=== PATIENT | male | born 1960 | race African-American/Black ===

== ENCOUNTER 2016-10-05 10:27 | Emergency (ER) | payer OTHER ==
[2016-10-05 10:47] VITALS: TEMP 97.4
[2016-10-05] MEDS ORDERED: SODIUM CHLORIDE 0.9% 1,000 ML IV STA (11:04)
[2016-10-05 11:47] LABS: Anisocytosis Slight; Basophils % (A) 1 %; CH 30.8; CHCM 32.3; Eosinophils # (A) 0.1 k/uL (0-0.7); Eosinophils % (A) 1 %; HCT 48.6 % (39.0-53.0); HDW 2.28; HGB 15.2 gm/dL (13.0-17.5); Luc # (Auto) 0.16; Luc % (Auto) 4; Lymphocytes # (A) 1.7 k/uL (1.0-4.8); Lymphocytes % (A) 40 %; MCH 29.9 pg (25.0-35.0); MCHC 31.2 g/dL (31.0-37.0); MCV 95.9 fL (80.0-100.0); Mean Platelet Volume 8.4; Monocytes # (A) 0.4 k/uL (0-1.0); Monocytes % (A) 8 %; Neutrophils % (A) 47 %; RBC 5.06 m/uL (4.30-5.90); WBC 4.3 k/uL (3.8-10.6); WBC (Perox) 4.15
--- NOTE | 2016-10-05 11:48 | XR ---
EXAMINATION TYPE: XR chest 2V DATE OF EXAM: 10/05/2016 COMPARISON: 11/12/2015 HISTORY: Shortness of breath TECHNIQUE: Frontal and lateral views of the chest are obtained. FINDINGS: Scattered senescent parenchymal changes noted. Hyperinflation compatible with COPD. No evidence for infiltrate. No evidence for atelectasis. Heart size is stable. Mediastinal structures are stable and grossly unremarkable. No evidence for hilar prominence. Degenerative changes dorsal spine. IMPRESSION: 1. No evidence for acute pulmonary disease.
[2016-10-05 11:56] LABS: ALT 27 U/L (21-72); AST 18 U/L (17-59); Alkaline Phosphatase 46 U/L (38-126); Anion Gap 5 mmol/L; Blood Urea Nitrogen 20 mg/dL (9-20); Calcium 9.6 mg/dL (8.4-10.2); Carbon Dioxide 29 mmol/L (22-30); Chloride 105 mmol/L (98-107); Glucose 76 mg/dL (74-99); Magnesium 1.6 mg/dL (1.6-2.3); Non-African American GFR(MDRD) >60 (>60 ml/min/1.73 sqM); Potassium 4.4 mmol/L (3.5-5.1); Sodium 139 mmol/L (137-145); Total Bilirubin 0.4 mg/dL (0.2-1.3); Total Protein 6.4 g/dL (6.3-8.2)
--- NOTE | 2016-10-05 12:05 | ED ---
Recheck HPI - General Chief Complaint: Recheck/Abnormal Lab/Rx Stated Complaint: High BP Time Seen by Provider: 10/05/16 10:52 Source: patient, RN notes reviewed, old records reviewed Mode of arrival: ambulatory Limitations: no limitations - History of Present Illness Initial Comments: This is a 56-year-old male presenting to the emergency Department chief complaint of concern of high blood pressure. He reports that he had his blood drawn at [facility] and the nurse there told him that he had to be evaluated because his blood pressure was low. Upon arriving to emergency departments and his blood pressure is actually well at 107/56. Heart rate of 48. Patient reports that he is not take any medication for blood pressure to manage his heart rate. He reports that he has no chest pain or shortness of breath. Denies any lightheaded or dizziness. Patient states that he did not eat breakfast this morning. Apparently patient does live in a custodial. - Related Data Home Medications Medication Instructions Recorded Confirmed Aspirin EC [Ecotrin Low Dose] 81 mg PO DAILY 10/05/16 10/05/16 Calcium Carb-Vit D 500Mg-200Un 1 tab PO TID 10/05/16 10/05/16 [Oscal 500+D] Desmopressin Acetate [Desmopressin 0.4 mg PO HS 10/05/16 10/05/16 Acetate] Divalproex Sodium [Depakote] 1,000 mg PO TID 10/05/16 10/05/16 Iloperidone [Fanapt] 8 mg PO BID 10/05/16 10/05/16 Lacosamide [Vimpat] 50 mg PO BID 10/05/16 10/05/16 PARoxetine [Paxil] 20 mg PO HS 10/05/16 10/05/16 Phenytoin Sodium Extended 100 mg PO BID 10/05/16 10/05/16 [Dilantin] Propranolol [Inderal] 20 mg PO BID 10/05/16 10/05/16 clonazePAM [KlonoPIN] 0.5 mg PO HS 10/05/16 10/05/16 levETIRAcetam [Keppra] 1,000 mg PO Q12HR 10/05/16 10/05/16 levETIRAcetam [Keppra] 250 mg PO Q12HR 10/05/16 10/05/16 Allergies Allergy/AdvReac Type Severity Reaction Status Date / Time No Known Allergies Allergy Verified 10/05/16 11:52 Review of Systems ROS Statement: Those systems with pertinent positive or pertinent negative responses have been documented in the HPI. ROS Other: All systems not noted in ROS Statement are negative. Past Medical History Past Medical History: Seizure Disorder Additional Past Medical History / Comment(s): epilepsy History of Any Multi-Drug Resistant Organisms: None Reported Past Surgical History: No Surgical Hx Reported Past Psychological History: Depression Smoking Status: Former smoker Past Alcohol Use History: None Reported, Abuse, Daily Past Drug Use History: None Reported General Exam - General Exam Comments Initial Comments: This is a 56-year-old male. Patient does not appear to be in any acute distress. Limitations: no limitations General appearance: alert, in no apparent distress Head exam: Present: atraumatic, normocephalic, normal inspection Eye exam: Present: normal appearance, PERRL, EOMI. Absent: scleral icterus, conjunctival injection, periorbital swelling ENT exam: Present: normal exam, mucous membranes moist Neck exam: Present: normal inspection. Absent: tenderness, meningismus, lymphadenopathy Respiratory exam: Present: normal lung sounds bilaterally. Absent: respiratory distress, wheezes, rales, rhonchi, stridor Cardiovascular Exam: Present: regular rate, bradycardia, normal heart sounds. Absent: normal rhythm (Heart rate of 48 bpm.), systolic murmur, diastolic murmur , rubs, gallop, clicks GI/Abdominal exam: Present: soft Extremities exam: Present: normal inspection, full ROM, normal capillary refill. Absent: tenderness, pedal edema, joint swelling, calf tenderness Back exam: Present: normal inspection Neurological exam: Present: alert, oriented X3, CN II-XII intact Psychiatric exam: Present: normal affect, normal mood Skin exam: Present: warm, dry, intact, normal color. Absent: rash Course Vital Signs 10/05/16 10/05/16 10/05/16 10:42 11:06 12:57 Temperature 97.4 F L Pulse Rate 48 L 47 L 50 L Pulse Rate [ Sitting] Pulse Rate [ Standing] Pulse Rate [ Supine] Respiratory 18 18 16 Rate Blood Pressure 107/62 154/114 127/68 Blood Pressure [Sitting] Blood Pressure [Standing] Blood Pressure [Supine] O2 Sat by Pulse 97 98 98 Oximetry 10/05/16 10/05/16 14:10 14:13 Temperature Pulse Rate 58 L Pulse Rate [ 67 Sitting] Pulse Rate [ 53 L Standing] Pulse Rate [ 85 Supine] Respiratory 18 Rate Blood Pressure 101/65 Blood Pressure 110/62 [Sitting] Blood Pressure 101/65 [Standing] Blood Pressure 127/70 [Supine] O2 Sat by Pulse 95 Oximetry - Reevaluation(s) Reevaluation #1: 10/05/16 13:38 Patient was reevaluated and reports that he is feeling fine. He reports that he wants to go home. Discussed all of his lab work is appear to be normal. He discontinued have a low heart rate in 45-48 bpm. He does not have any headache , or lightheadedness. Medical Decision Making - Medical Decision Making 56-year-old male chief complaint of concern for high blood pressure. He reports that he was getting his lab work done and they told him that he had an abnormal blood pressure needed to come to the emergency department to be evaluated. Upon arriving to the emergency department as the patient heart rate is significantly low in the mid 40s. Patient states that he is not symptomatic , denies any headache or dizziness. He states that he has no chest pain or shortness of breath. Mom emergency Department patient received EKGs. He does have history of seizure disorder he has been more shaky but has not been having any acute seizures. He is on multiple medications to manage his. He sees Dr. Rodriges in regards to seizure management. Patient taken over within normal limits. Chest x-ray also was normal. Patient does have symptomatic bradycardia when orthostatics were taken. Heart rate while supine was 85, whatever skating of 63. Patient was offered admission and strongly encouraged to stay. Patient continues to state that he wants to go home to see his mother. Patient understands the risks and benefits of leaving. Discussed that he could have serious consequences. Patient is adamant that he wants to leave. Patient will be advised to discontinue his propanolol as this can cause his heart rate to slow. Patient agrees to treatment plan will comply. Return parameters were discussed. - Lab Data Result diagrams: 10/05/16 11:25 10/05/16 11:25 Lab Results 10/05/16 10/05/16 10/05/16 Range/Units 11:25 11:25 11:25 WBC 4.3 (3.8-10.6) k/uL RBC 5.06 (4.30-5.90) m/uL Hgb 15.2 (13.0-17.5) gm/dL Hct 48.6 (39.0-53.0) % MCV 95.9 (80.0-100.0) fL MCH 29.9 (25.0-35.0) pg MCHC 31.2 (31.0-37.0) g/dL RDW 16.0 H (11.5-15.5) % Plt Count 147 L (150-450) k/uL Neutrophils % 47 % Lymphocytes % 40 % Monocytes % 8 % Eosinophils % 1 % Basophils % 1 % Neutrophils # 2.0 (1.3-7.7) k/uL Lymphocytes # 1.7 (1.0-4.8) k/uL Monocytes # 0.4 (0-1.0) k/uL Eosinophils # 0.1 (0-0.7) k/uL Basophils # 0.0 (0-0.2) k/uL Anisocytosis Slight PT (9.0-12.0) sec INR (<1.2) APTT (22.0-30.0) sec Sodium 139 (137-145) mmol/L Potassium 4.4 (3.5-5.1) mmol/L Chloride 105 (98-107) mmol/L Carbon Dioxide 29 (22-30) mmol/L Anion Gap 5 mmol/L BUN 20 (9-20) mg/dL Creatinine 1.21 (0.66-1.25) mg/dL Est GFR (MDRD) Af Amer >60 (>60 ml/min/1.73 sqM) Est GFR (MDRD) Non-Af >60 (>60 ml/min/1.73 sqM) Glucose 76 (74-99) mg/dL Calcium 9.6 (8.4-10.2) mg/dL Magnesium 1.6 (1.6-2.3) mg/dL Total Bilirubin 0.4 (0.2-1.3) mg/dL AST 18 (17-59) U/L ALT 27 (21-72) U/L Alkaline Phosphatase 46 (38-126) U/L Total Creatine Kinase 98 (55-170) U/L CK-MB (CK-2) 2.8 H* (0.0-2.4) ng/mL CK-MB (CK-2) Rel Index 2.9 Troponin I <0.012 (0.000-0.034) ng/mL NT-Pro-B Natriuret Pep pg/mL Total Protein 6.4 (6.3-8.2) g/dL Albumin 3.6 (3.5-5.0) g/dL 10/05/16 10/05/16 Range/Units 11:25 11:25 WBC (3.8-10.6) k/uL RBC (4.30-5.90) m/uL Hgb (13.0-17.5) gm/dL Hct (39.0-53.0) % MCV (80.0-100.0) fL MCH (25.0-35.0) pg MCHC (31.0-37.0) g/dL RDW (11.5-15.5) % Plt Count (150-450) k/uL Neutrophils % % Lymphocytes % % Monocytes % % Eosinophils % % Basophils % % Neutrophils # (1.3-7.7) k/uL Lymphocytes # (1.0-4.8) k/uL Monocytes # (0-1.0) k/uL Eosinophils # (0-0.7) k/uL Basophils # (0-0.2) k/uL Anisocytosis PT 10.8 (9.0-12.0) sec INR 1.1 (<1.2) APTT 25.3 (22.0-30.0) sec Sodium (137-145) mmol/L Potassium (3.5-5.1) mmol/L Chloride (98-107) mmol/L Carbon Dioxide (22-30) mmol/L Anion Gap mmol/L BUN (9-20) mg/dL Creatinine (0.66-1.25) mg/dL Est GFR (MDRD) Af Amer (>60 ml/min/1.73 sqM) Est GFR (MDRD) Non-Af (>60 ml/min/1.73 sqM) Glucose (74-99) mg/dL Calcium (8.4-10.2) mg/dL Magnesium (1.6-2.3) mg/dL Total Bilirubin (0.2-1.3) mg/dL AST (17-59) U/L ALT (21-72) U/L Alkaline Phosphatase (38-126) U/L Total Creatine Kinase (55-170) U/L CK-MB (CK-2) (0.0-2.4) ng/mL CK-MB (CK-2) Rel Index Troponin I (0.000-0.034) ng/mL NT-Pro-B Natriuret Pep 130 pg/mL Total Protein (6.3-8.2) g/dL Albumin (3.5-5.0) g/dL 10/05/16 14:35 EKG was difficult to interpret due to patient's shakiness. Patient does have ventricular rate of 45 bpm. PA interval 150 ms. QRS duration 70 ms. QT QTc 440/384 ms. Does not appear the patient has A. fib his P waves are identified. This EKG was performed 1118. Second EKG is performed 1128. Is also difficult to visualize due to patient's shakiness. There is sinus bradycardia ventricular rate of 44 bpm. PA interval 140 ms. QRS duration 74. QT QTc is 466/99 ms. No evidence of ST elevation. Disposition Clinical Impression: Bradycardia Disposition: Left Against Medical Advice Condition: Good Instructions: Bradycardia (ED) Additional Instructions: Patient needs to stop taking propranolol. Return to the emergency department if any alarming signs or symptoms occur. Referrals: Donovan Lara MD [Primary Care Provider] - 1-2 days Time of Disposition: 14:33
[2016-10-05 12:06] LABS: Creatine Kinase 98 U/L (55-170)
[2016-10-05 12:19] LABS: Troponin I <0.012 ng/mL (0.000-0.034)
[2016-10-05 12:23] LABS: Creatine Kinase MB 2.8 ng/mL (0.0-2.4)
[2016-10-05 12:28] LABS: INR 1.1 (<1.2); Partial Thromboplastin Time 25.3 sec (22.0-30.0); Prothrombin Time 10.8 sec (9.0-12.0)
[2016-10-05 14:14] VITALS: RESP 18
[2016-10-05 14:51] VITALS: BP 151/78; PULSE 43
== END 2016-10-05 14:55 | disposition left against medical advice (07) ==
LOC: MERGE 10:27 → EC 10:27 → EEVIPCON 10:27 → EC 14:55
DX: R00.1 Bradycardia, unspecified (principal); R03.0 Elevated blood-pressure reading, without diagnosis of hypertension; F32.9 Major depressive disorder, single episode, unspecified; G40.909 Epilepsy, unspecified, not intractable, without status epilepticus; Z87.891 Personal history of nicotine dependence; Z79.82 Long term (current) use of aspirin; Z79.899 Other long term (current) drug therapy
CPT/HCPCS: 36415; 71020; 80053; 82550; 82553; 83735; 83880; 84484; 85025; 85610; 85730; 93005; 96360; 96361; 99284

== ENCOUNTER → 2018-05-02 | Outpatient (CLI) | payer OTHER ==
--- NOTE | 2018-05-02 13:46 | CT ---
EXAMINATION TYPE: CT brain wo con DATE OF EXAM: 05/02/2018 COMPARISON: 11/09/2015 HISTORY: Epilepsy. CT DLP: 1080.[address] of the brain was performed. The ventricles, basal cisterns and sulci overlying the cerebral convexities demonstrate mild to moder ate enlargement. There is no evidence for intracranial hemorrhage or sulcal effacement. There is decreased attenuation about the periventricular white matter and deep white matter of both c erebral hemispheres, compatible with chronic small vessel ischemia. Differential diagnosis does inclu de demyelination. No mass effects are seen.No midline shift. Osseous calvarium is intact. If symptoms persist consider MRI. IMPRESSION: 1. Age related atrophic and chronic small vessel ischemic change without acute intracranial process s een at this time.
== END | disposition home or self-care (01) ==
LOC: RADCTMAIN 13:01
PROVIDERS: ATTEND Psychiatry & Neurology Neurology
DX: G31.1 Senile degeneration of brain, not elsewhere classified (principal); I67.82 Cerebral ischemia; G40.209 Localization-related (focal) (partial) symptomatic epilepsy and epileptic syndromes with complex partial seizures, not intractable, without status epilepticus
CPT/HCPCS: 70450

== ENCOUNTER → 2018-12-04 | Outpatient (CLI) | payer OTHER ==
[2018-12-04 11:53] LABS: Anisocytosis Slight; Basophils # (A) 0.1 k/uL (0-0.2); Basophils % (A) 2 %; Eosinophils # (A) 0.1 k/uL (0-0.7); Eosinophils % (A) 1 %; HCT 47.6 % (39.0-53.0); HGB 14.6 gm/dL (13.0-17.5); Lymphocytes # (A) 1.5 k/uL (1.0-4.8); Lymphocytes % (A) 37 %; MCH 29.5 pg (25.0-35.0); MCHC 30.7 g/dL (31.0-37.0); MCV 96.1 fL (80.0-100.0); Mean Platelet Volume 8.2; Monocytes # (A) 0.3 k/uL (0-1.0); Monocytes % (A) 8 %; Neutrophils % (A) 50 %; Platelet Count 144 k/uL (150-450); RBC 4.95 m/uL (4.30-5.90); RDW 16.1 % (11.5-15.5)
== END ==
LOC: LABWHC1 09:59
PROVIDERS: ATTEND Psychiatry & Neurology Neurology
DX: G40.209 Localization-related (focal) (partial) symptomatic epilepsy and epileptic syndromes with complex partial seizures, not intractable, without status epilepticus (principal)
CPT/HCPCS: 36415; 80164; 80177; 80185; 84450; 84460; 85025

== ENCOUNTER → 2019-05-21 | Outpatient (CLI) | payer OTHER | END | disposition home or self-care (01) | LOC: LABWHC1 10:23 | PROVIDERS: ATTEND Psychiatry & Neurology Neurology | DX: Z53.9 Procedure and treatment not carried out, unspecified reason (principal) ==

== ENCOUNTER → 2019-08-28 | Outpatient (CLI) | payer OTHER ==
[2019-08-28 12:40] LABS: Basophils % (A) 1 %; Eosinophils # (A) 0.1 k/uL (0-0.7); Eosinophils % (A) 2 %; HCT 51.5 % (39.0-53.0); HGB 15.8 gm/dL (13.0-17.5); Lymphocytes # (A) 1.7 k/uL (1.0-4.8); Lymphocytes % (A) 43 %; MCH 29.8 pg (25.0-35.0); MCHC 30.8 g/dL (31.0-37.0); MCV 96.7 fL (80.0-100.0); Monocytes # (A) 0.3 k/uL (0-1.0); Monocytes % (A) 9 %; Neutrophils # (A) 1.7 k/uL (1.3-7.7); Neutrophils % (A) 42 %; Platelet Count 117 k/uL (150-450); RBC 5.32 m/uL (4.30-5.90); RDW 15.5 % (11.5-15.5)
[2019-08-28 21:43] LABS: Valproic Acid (Depakene) 65.3 ug/mL (50.0-100.0)
[2019-08-28 22:26] LABS: Phenytoin (Dilantin) 11.9 ug/mL (10.0-20.0)
== END | disposition home or self-care (01) ==
LOC: LABWHC1 10:54
PROVIDERS: ATTEND Psychiatry & Neurology Neurology
DX: G40.209 Localization-related (focal) (partial) symptomatic epilepsy and epileptic syndromes with complex partial seizures, not intractable, without status epilepticus (principal)
CPT/HCPCS: 36415; 80164; 80177; 80185; 84450; 84460; 85025

== ENCOUNTER → 2019-11-04 | Outpatient (CLI) | payer OTHER ==
[2019-11-04 11:21] LABS: Anisocytosis Slight; Basophils % (A) 1 %; Eosinophils # (A) 0.1 k/uL (0-0.7); Eosinophils % (A) 2 %; HCT 47.3 % (39.0-53.0); HGB 14.5 gm/dL (13.0-17.5); Lymphocytes # (A) 1.4 k/uL (1.0-4.8); Lymphocytes % (A) 33 %; MCH 29.3 pg (25.0-35.0); MCHC 30.6 g/dL (31.0-37.0); MCV 95.9 fL (80.0-100.0); Mean Platelet Volume 8.9; Monocytes # (A) 0.4 k/uL (0-1.0); Monocytes % (A) 9 %; Neutrophils # (A) 2.3 k/uL (1.3-7.7); Neutrophils % (A) 54 %; Platelet Count 134 k/uL (150-450); RBC 4.93 m/uL (4.30-5.90); RDW 16.3 % (11.5-15.5); WBC 4.4 k/uL (3.8-10.6)
[2019-11-04 17:52] LABS: Phenytoin (Dilantin) 9.3 ug/mL (10.0-20.0)
[2019-11-04 18:03] LABS: Valproic Acid (Depakene) 45.3 ug/mL (50.0-100.0)
[2019-11-05 07:52] LABS: Levetiracetam (Keppra) 27.7 ug/mL (3.0-60.0)
== END | disposition home or self-care (01) ==
LOC: LABWHC1 10:14
PROVIDERS: ATTEND Psychiatry & Neurology Neurology
DX: G40.209 Localization-related (focal) (partial) symptomatic epilepsy and epileptic syndromes with complex partial seizures, not intractable, without status epilepticus (principal)
CPT/HCPCS: 36415; 80164; 80177; 80185; 80235; 84450; 84460; 85025

== ENCOUNTER → 2020-05-27 | Outpatient (CLI) | payer OTHER ==
[2020-05-27 19:19] LABS: Basophils # (A) 0.02 X 10*3/uL (0.00-0.10); Basophils % (A) 0.5 %; Eosinophils # (A) 0.04 X 10*3/uL (0.04-0.35); HCT 42.7 % (39.6-50.0); HGB 14.2 g/dL (13.0-17.0); Lymphocytes # (A) 1.77 X 10*3/uL (0.90-5.00); Lymphocytes % (A) 43.6 %; MCH 30.1 pg (27.0-32.0); MCHC 33.3 g/dL (32.0-37.0); MCV 90.5 fL (80.0-97.0); Mean Platelet Volume 11.7 fL (9.5-12.2); Monocytes # (A) 0.41 X 10*3/uL (0.20-1.00); Monocytes % (A) 10.1 %; Neutrophils # (A) 1.81 X 10*3/uL (1.80-7.70); Neutrophils % (A) 44.6 %; Platelet Count 143 X 10*3/uL (140-440); RBC 4.72 X 10*6/uL (4.40-5.60); WBC 4.06 X 10*3/uL (4.50-10.00)
[2020-05-28 01:15] LABS: Valproic Acid (Depakene) 26.4 ug/mL (50.0-100.0)
[2020-05-28 01:23] LABS: Phenytoin (Dilantin) 14.3 ug/mL (10.0-20.0)
[2020-05-28 12:38] LABS: Levetiracetam (Keppra) 32.9 ug/mL (3.0-60.0)
== END | disposition home or self-care (01) ==
LOC: LABWHC1 11:33
PROVIDERS: ATTEND Psychiatry & Neurology Neurology
DX: G40.209 Localization-related (focal) (partial) symptomatic epilepsy and epileptic syndromes with complex partial seizures, not intractable, without status epilepticus (principal)
CPT/HCPCS: 36415; 80164; 80177; 80185; 80235; 84450; 84460; 85025

== ENCOUNTER 2020-10-20 14:44 | Emergency (ER) | payer OTHER ==
[2020-10-20 15:04] VITALS: BP 92/61; PULSE 69; RESP 18; TEMP 97.5
[2020-10-20] MEDS ORDERED: ASPIRIN 81 MG PO STA (15:49)
[2020-10-20] MEDS ORDERED: SODIUM CHLORIDE 0.9% 1,000 ML IV STA (15:49)
[2020-10-20] MEDS ORDERED: KETOROLAC 15 MG/ML 1 ML VIAL IVP STA (16:05)
[2020-10-20 16:21] LABS: Basophils % (A) 0 %; Eosinophils # (A) 0.1 k/uL (0-0.7); Eosinophils % (A) 1 %; HCT 49.4 % (39.0-53.0); HGB 16.1 gm/dL (13.0-17.5); Lymphocytes # (A) 1.5 k/uL (1.0-4.8); Lymphocytes % (A) 32 %; MCH 31.8 pg (25.0-35.0); MCHC 32.5 g/dL (31.0-37.0); MCV 97.9 fL (80.0-100.0); Mean Platelet Volume 9.5; Monocytes # (A) 0.5 k/uL (0-1.0); Monocytes % (A) 11 %; Neutrophils # (A) 2.6 k/uL (1.3-7.7); Neutrophils % (A) 54 %; Platelet Count 129 k/uL (150-450); RBC 5.04 m/uL (4.30-5.90); WBC 4.7 k/uL (3.8-10.6)
--- NOTE | 2020-10-20 16:30 | XR ---
EXAMINATION TYPE: XR ribs LT w pa chest xray DATE OF EXAM: 10/20/2020 CLINICAL HISTORY: Chest and left-sided rib pain. TECHNIQUE: Single frontal view of the chest is obtained. A frontal and oblique images of the left-poncho ed ribs. COMPARISON: Prior chest x-ray October 05, 2016 FINDINGS: There is mild chronic parenchymal changes with new tiny left pleural effusion. No pneumoth orax seen bilaterally. The cardiac silhouette size is stable and upper limits of normal. The osseou s structures are intact. Dedicated images of the left-sided ribs confirm small to tiny left pleural effusion. No acute displac ed left-sided rib fracture is seen. No suspicious expansile or destructive rib lesion noted. IMPRESSION: 1. New small to tiny left pleural effusion. 2. No acute displaced left-sided rib fracture.
[2020-10-20 16:31] LABS: African American GFR (CKD) 90 (>60 ml/min/1.73 sqM); Alcohol <10 mg/dL; Anion Gap 5 mmol/L; Blood Urea Nitrogen 20 mg/dL (9-20); Calcium 8.8 mg/dL (8.4-10.2); Carbon Dioxide 27 mmol/L (22-30); Chloride 109 mmol/L (98-107); Glucose 69 mg/dL (74-99); Magnesium 1.9 mg/dL (1.6-2.3); Non-African American GFR(CKD) 78 (>60 ml/min/1.73 sqM); Potassium 4.7 mmol/L (3.5-5.1); Sodium 141 mmol/L (137-145)
--- NOTE | 2020-10-20 17:39 | ED ---
General Adult HPI - General Chief complaint: Chest Pain Stated complaint: Chest Pain/Fall Time Seen by Provider: 10/20/20 15:46 Source: patient, RN notes reviewed, old records reviewed Mode of arrival: wheelchair Limitations: no limitations - History of Present Illness Initial comments: I evaluated the patient is placed in a room.Patient is a 60-year-old male with past medical history remarkable for alcohol use, seizure disorder who presents emergency Department following a mechanical fall. He states that this occurred 5 days ago. He fell from 1 step and landed on a chair he was carrying. He is having some left-sided inferior lateral rib pain that he describes as achy and does not radiate.. He was sent by his home for evaluation. Denies any shortness breath, abdominal pain, nausea, vomiting, headaches, weakness, numbness. States he has not drank alcohol. His no other acute complaints at this time. Patient is concerned over possible musculo skeletal injury to left ribs. - Related Data Home Medications Medication Instructions Recorded Confirmed Desmopressin Acetate 0.4 mg PO HS@199907/13/15 10/20/20 Aspirin EC [Ecotrin Low Dose] 81 mg PO DAILY@0700 10/05/16 10/20/20 Divalproex Sodium [Depakote] 500 mg PO HS@199910/05/16 10/20/20 Lacosamide [Vimpat] 50 mg PO DAILY@69910/05/16 10/20/20 clonazePAM [KlonoPIN] 0.5 mg PO HS@199910/05/16 10/20/20 levETIRAcetam [Keppra] 1,000 mg PO BID@0700,199910/05/16 10/20/20 Divalproex [Depakote] 1,000 mg PO BID@0700,1600 10/20/20 10/20/20 Divalproex [Depakote] 250 mg PO HS@199910/20/20 10/20/20 Escitalopram [Lexapro] 10 mg PO HS@199910/20/20 10/20/20 Iloperidone [Fanapt] 4 mg PO BID@0700,199910/20/20 10/20/20 Phenytoin Chew [Dilantin Chew] 50 mg PO DAILY@0700 10/20/20 10/20/20 Phenytoin Sodium Extended 100 mg PO BID@0700,1600 10/20/20 10/20/20 [Dilantin] Previous Rx's Medication Instructions Recorded Lidocaine 5% Patch [Lidoderm 5% 1 patch TOPICAL DAILY PRN 7 Days 10/20/20 Patch] #7 patch Allergies Allergy/AdvReac Type Severity Reaction Status Date / Time No Known Allergies Allergy Verified 10/20/20 16:34 Review of Systems ROS Statement: Those systems with pertinent positive or pertinent negative responses have been documented in the HPI. Review of Systems: CONST: Denies fever EYES: Denies blurry vision ENT: Denies nasal congestion C/V: Endorses left-sided rib pain RESP: Denies shortness of breath GI: Denies abdominal pain : Denies dysuria SKIN: Denies rash. MSK: Denies joint pain. NEURO: Denies headache ROS Other: All systems not noted in ROS Statement are negative. Past Medical History Past Medical History: Seizure Disorder Additional Past Medical History / Comment(s): epilepsy History of Any Multi-Drug Resistant Organisms: None Reported Past Surgical History: No Surgical Hx Reported Additional Past Surgical History / Comment(s): Only surgery known was plastic surgery due to ashley as a child. Past Anesthesia/Blood Transfusion Reactions: Unable to Obtain Past Psychological History: Depression, No Psychological Hx Reported Smoking Status: Current every day smoker Past Alcohol Use History: Abuse, Daily Past Drug Use History: None Reported - Past Family History Father History Unknown: Yes Family Medical History: Unable to Obtain Mother History Unknown: Yes Family Medical History: Unable to Obtain General Exam - General Exam Comments Initial Comments: General: Appears in mild distress secondary to left-sided rib pain. HEAD: Normal with no signs of head trauma. EYES: PERRLA, EOMI, conjunctiva normal, no discharge. Pupils are 3 mm and eq ual bilaterally. ENT: Hearing grossly intact, normal oropharynx. RESPIRATORY: Clear breath sounds bilaterally. No wheezes, rales, or rhonchi. C/V: Regular rate and rhythm. S1 and S2 auscultated, no edema, peripheral pulses 2+ and intact throughout patient has inferior left lateral rib pain along the intercostal space of the inferior most ribs, 11 and 12. No obvious deformity palpated. ABD: Abd is soft, nontender, nondistended EXT: Normal range of motion, no obvious deformity SKIN: No rashes or lesions observed on exposed skin. NEURO: Alert and oriented 4. Patient's ambulate without difficulty. No signs of alcohol withdrawal. Limitations: no limitations Course Vital Signs 10/20/20 15:00 Temperature 97.5 F L Pulse Rate 69 Respiratory 18 Rate Blood Pressure 92/61 O2 Sat by Pulse 99 Oximetry Medical Decision Making - Medical Decision Making Based on patient's mentation physical exam, I do believe he is likely expressing muscle skeletal chest wall pain along the ribs. However we will obtain basic laboratory studies as well as a screening EKG. We'll obtain an x-ray of the left ribs and chest. Patient was in agreement this plan. He'll be given an aspirin and Toradol for pain management as well as a 1 L fluid bolus. Patient's EKG shows no signs of acute ischemia. Chest x-ray shows no acute cardiopulmonary process. Laboratory studies are remarkable for a negative alcohol level. Patient is mildly hypoglycemic but is acting normally, we will administer juice and repeat. I informed him of his negative imaging and I would like to discharge him home following improvement of his blood glucose. He was in agreement this plan. Patient's repeat blood sugar is within normal limits. I do believe it is safe for him to be discharged home at this time. Patient states he has Motrin or Tylenol at home for pain management. I will provide the patient with a prescription for lidocaine patch. I instructed the patient to follow up with their PCP in the next 3 days. . I explained that the patient should return to the emergency department if they experience any worsening symptoms. Strict return precautions were discussed with the patient. The patient expressed understanding of these instructions. I answered all questions that the patient had. The patient was discharged home in good condition with their prescriptions and follow up information. - Lab Data Result diagrams: 10/20/20 16:00 10/20/20 16:00 Lab Results 10/20/20 10/20/20 10/20/20 Range/Units 16:00 16:00 18:06 WBC 4.7 (3.8-10.6) k/uL RBC 5.04 (4.30-5.90) m/uL Hgb 16.1 (13.0-17.5) gm/dL Hct 49.4 (39.0-53.0) % MCV 97.9 (80.0-100.0) fL MCH 31.8 (25.0-35.0) pg MCHC 32.5 (31.0-37.0) g/dL RDW 16.0 H (11.5-15.5) % Plt Count 129 L (150-450) k/uL MPV 9.5 Neutrophils % 54 % Lymphocytes % 32 % Monocytes % 11 % Eosinophils % 1 % Basophils % 0 % Neutrophils # 2.6 (1.3-7.7) k/uL Lymphocytes # 1.5 (1.0-4.8) k/uL Monocytes # 0.5 (0-1.0) k/uL Eosinophils # 0.1 (0-0.7) k/uL Basophils # 0.0 (0-0.2) k/uL Sodium 141 (137-145) mmol/L Potassium 4.7 (3.5-5.1) mmol/L Chloride 109 H (98-107) mmol/L Carbon Dioxide 27 (22-30) mmol/L Anion Gap 5 mmol/L BUN 20 (9-20) mg/dL Creatinine 1.04 (0.66-1.25) mg/dL Est GFR (CKD-EPI)AfAm 90 (>60 ml/min/1.73 sqM) Est GFR (CKD-EPI)NonAf 78 (>60 ml/min/1.73 sqM) Glucose 69 L (74-99) mg/dL POC Glucose (mg/dL) 109 H (75-99) mg/dL POC Glu [employer] Worker ID Mikie Mae A Calcium 8.8 (8.4-10.2) mg/dL Magnesium 1.9 (1.6-2.3) mg/dL Serum Alcohol <10 mg/dL - EKG Data -: EKG Interpreted by Me EKG Comments: 12-lead Electrocardiogram Interpretation Note EKG was reviewed and interpreted by myself. 12-lead ECG performed at 1510 is interpreted by me as revealing normal sinus rhythm at a rate of 65 beats per mi nute. Olden is normal. HI interval is 144 ms, QRS duration 60 ms, QTc is 430 ms.. There were no ST or T wave abnormalities to suggest myocardial ischemia or injury. R wave progression across the precordium was satisfactory. By my interpretation this EKG is non-diagnostic for acute ischemia. Disposition Clinical Impression: Musculoskeletal pain, Rib pain on left side Disposition: HOME SELF-CARE Condition: Good Instructions (If sedation given, give patient instructions): Chest Pain (DC) Prescriptions: Lidocaine 5% Patch [Lidoderm 5% Patch] 1 patch TOPICAL DAILY PRN 7 Days #7 patch PRN Reason: Pain Is patient prescribed a controlled substance at d/c from ED?: No Referrals: Amilcar Goel NPC [Primary Care Provider] - 1-2 days
[2020-10-20 18:11] LABS: Glucose,Whole Blood 109 mg/dL (75-99)
== END 2020-10-20 18:48 | disposition home or self-care (01) ==
LOC: EC 14:44
DX: R07.81 Pleurodynia (principal); G40.909 Epilepsy, unspecified, not intractable, without status epilepticus; F32.9 Major depressive disorder, single episode, unspecified; F17.200 Nicotine dependence, unspecified, uncomplicated; Z79.82 Long term (current) use of aspirin; Z79.899 Other long term (current) drug therapy; W10.9XXA Fall (on) (from) unspecified stairs and steps, initial encounter
CPT/HCPCS: 36415; 93005; 80048; 83735; 85025; 71101; 99284; G0480; 80320

== ENCOUNTER → 2020-11-02 | Outpatient (CLI) | payer OTHER ==
[2020-11-02 16:15] LABS: Basophils # (A) 0.03 X 10*3/uL (0.00-0.10); Basophils % (A) 0.7 %; Eosinophils # (A) 0.06 X 10*3/uL (0.04-0.35); Eosinophils % (A) 1.4 %; HGB 14.8 g/dL (13.0-17.0); Lymphocytes # (A) 1.54 X 10*3/uL (0.90-5.00); Lymphocytes % (A) 36.1 %; MCH 31.3 pg (27.0-32.0); MCHC 35.2 g/dL (32.0-37.0); MCV 88.8 fL (80.0-97.0); Mean Platelet Volume 11.9 fL (9.5-12.2); Monocytes # (A) 0.46 X 10*3/uL (0.20-1.00); Monocytes % (A) 10.8 %; Neutrophils # (A) 2.17 X 10*3/uL (1.80-7.70); Neutrophils % (A) 50.8 %; Platelet Count 119 X 10*3/uL (140-440); RBC 4.73 X 10*6/uL (4.40-5.60); RDW 15.9 % (11.5-14.5); WBC 4.27 X 10*3/uL (4.50-10.00)
[2020-11-03 10:53] LABS: Phenytoin (Dilantin) 12.2 ug/mL (10.0-20.0)
== END | disposition home or self-care (01) ==
LOC: LABWHC1 11:02
PROVIDERS: ATTEND Psychiatry & Neurology Neurology
DX: G40.209 Localization-related (focal) (partial) symptomatic epilepsy and epileptic syndromes with complex partial seizures, not intractable, without status epilepticus (principal)
CPT/HCPCS: 36415; 80164; 80177; 80185; 80235; 84450; 84460; 85025

== ENCOUNTER 2020-11-25 16:19 | Observation (INO) | payer OTHER ==
[2020-11-25] MEDS ORDERED: SODIUM CHLORIDE 0.9% 1,000 ML IV ONE (17:34)
[2020-11-25 17:44] LABS: Anisocytosis Slight; HCT 44.9 % (39.0-53.0); HGB 14.3 gm/dL (13.0-17.5); MCH 31.2 pg (25.0-35.0); MCHC 31.8 g/dL (31.0-37.0); Mean Platelet Volume 8.7; Platelet Count 113 k/uL (150-450); RBC 4.58 m/uL (4.30-5.90); RDW 16.3 % (11.5-15.5); WBC 3.8 k/uL (3.8-10.6)
[2020-11-25 17:50] LABS: Lactic Acid, Venous 1.3 mmol/L (0.7-2.0)
[2020-11-25 17:52] LABS: ALT 12 U/L (4-49); AST 22 U/L (17-59); African American GFR (CKD) 57 (>60 ml/min/1.73 sqM); Albumin 3.2 g/dL (3.5-5.0); Alcohol <10 mg/dL; Alkaline Phosphatase 61 U/L (38-126); Anion Gap 4 mmol/L; Blood Urea Nitrogen 24 mg/dL (9-20); Calcium 8.3 mg/dL (8.4-10.2); Carbon Dioxide 27 mmol/L (22-30); Chloride 109 mmol/L (98-107); Glucose 75 mg/dL (74-99); Non-African American GFR(CKD) 49 (>60 ml/min/1.73 sqM); Potassium 5.1 mmol/L (3.5-5.1); Sodium 140 mmol/L (137-145); Total Bilirubin 0.4 mg/dL (0.2-1.3); Total Protein 5.9 g/dL (6.3-8.2)
[2020-11-25 17:53] LABS: Appearance,Urine Clear (Clear); Bilirubin,Urine Negative (Negative); Blood,Urine Negative (Negative); Color,Urine Yellow; Glucose,Urine (UA) Negative (Negative); Ketones,Urine Negative (Negative); Leukocyte Esterase,Urine Negative (Negative); Nitrite,Urine Negative (Negative); Protein,Urine Negative (Negative); Specific Gravity,Urine 1.015 (1.001-1.035)
[2020-11-25 17:58] LABS: Partial Thromboplastin Time 27.2 sec (22.0-30.0); Prothrombin Time 10.8 sec (9.0-12.0)
--- NOTE | 2020-11-25 18:02 | CT ---
EXAMINATION TYPE: CT brain wo con DATE OF EXAM: 11/25/2020 COMPARISON: 05/02/2018 HISTORY: Altered mental status. Confusion. CT DLP: mGycm Automated exposure control for dose reduction was used. There is cerebral cortical atrophy. There is no mass effect nor midline shift. There is no sign of in tracranial hemorrhage. Calvarium is intact. There is fairly normal aeration of the mastoid sinuses. IMPRESSION: Cerebral atrophy. No acute intracranial abnormality. No change.
--- NOTE | 2020-11-25 18:06 | XR ---
EXAMINATION TYPE: XR chest 2V DATE OF EXAM: 11/25/2020 COMPARISON: 10/20/2020 HISTORY: Altered mental status TECHNIQUE: FINDINGS: Heart is enlarged. There is no heart failure. There is no hilar mass. Costophrenic angles a re clear. There are chest leads. Lungs are clear of infiltrate. IMPRESSION: Cardiomegaly. No active cardiopulmonary disease. There is clearing of some minimal pleura l reaction left lung base compared to old exam.
[2020-11-25 18:07] LABS: Amphetamine Screen,Urine Not Detected (NotDetected); Barbiturate Screen,Urine Detected (NotDetected); Benzodiazepines Screen,Urine Detected (NotDetected); Cocaine Screen,Urine Not Detected (NotDetected); Methadone Screen, Urine Not Detected (NotDetected); Opiate Screen,Urine Not Detected (NotDetected); Oxycodone Screen, Urine Not Detected (NotDetected); Phencyclidine Screen,Urine Not Detected (NotDetected); Tricyclic Antidepressant,Urine Not Detected (NotDetected); Urn Cannabinoid Scrn Not Detected (NotDetected)
[2020-11-25 18:18] LABS: Band Neutrophils % 3 %; Eosinophils # (M) 0.08 k/uL (0-0.7); Lymphocytes # (M) 1.29 k/uL (1.0-4.8); Monocytes # (M) 0.11 k/uL (0-1.0); Neutrophils % (M) 58 %; Nucleated Red Blood Cells 0 /100 WBC (0-0); Polychromasia Present; Total Cells Counted 100
--- NOTE | 2020-11-25 18:42 | ED ---
General Adult HPI - General Chief complaint: Weakness Stated complaint: Loss of balance Time Seen by Provider: 11/25/20 17:04 Source: patient, RN notes reviewed, old records reviewed Mode of arrival: ambulatory Limitations: no limitations - History of Present Illness Initial comments: I evaluated the patient when he was placed in a room. Patient is a 60-year-old male with past medical history remarkable for seizure disorder who presents emergency Department here at 3 and brought in by his caregiver being sent by his neurologist. There is been concern over worsening balance over the last 2-3 weeks as well as increased forgetfulness as well as polyuria and loss of bowel. Urology wanted the patient to be evaluated. Patient is at his baseline, alert and oriented 2-3 per his caregiver who was present at bedside. The patient denies any chest pain, shortness breath, weakness, numbness. Denies any nausea, vomiting, abdominal pain. Denies any visual changes. Denies any obvious neurological deficits. Patient's caregiver is uncertain what is causing his current complaints and was concerned for maybe a UTI does have a history. He otherwise has no acute complaints at this time. Patient presents for altered mental status. - Related Data Home Medications Medication Instructions Recorded Confirmed Desmopressin Acetate 0.4 mg PO HS@199907/13/15 11/25/20 Aspirin EC [Ecotrin Low Dose] 81 mg PO DAILY@0700 10/05/16 11/25/20 Lacosamide [Vimpat] 50 mg PO DAILY@0700 10/05/16 11/25/20 clonazePAM [KlonoPIN] 0.5 mg PO HS@199910/05/16 11/25/20 levETIRAcetam [Keppra] 1,000 mg PO BID@0700,199910/05/16 11/25/20 Divalproex [Depakote] 1,000 mg PO BID@0700,159910/20/20 11/25/20 Escitalopram [Lexapro] 10 mg PO HS@199910/20/20 11/25/20 Iloperidone [Fanapt] 4 mg PO BID@0700,199910/20/20 11/25/20 Phenytoin Chew [Dilantin Chew] 50 mg PO DAILY@0700 10/20/20 11/25/20 Phenytoin Sodium Extended 100 mg PO BID@0700,1600 10/20/20 11/25/20 [Dilantin] Divalproex [Depakote] 500 mg PO HS@2000 11/25/20 11/25/20 Allergies Allergy/AdvReac Type Severity Reaction Status Date / Time No Known Allergies Allergy Verified 11/25/20 17:57 Review of Systems ROS Statement: Those systems with pertinent positive or pertinent negative responses have been documented in the HPI. Review of Systems: CONST: Denies fever EYES: Denies blurry vision ENT: Denies nasal congestion C/V: Denies Chest pain RESP: Denies shortness of breath GI: Denies abdominal pain : Denies dysuria SKIN: Denies rash. MSK: Denies joint pain. NEURO: Denies headache ROS Other: All systems not noted in ROS Statement are negative. Past Medical History Past Medical History: Seizure Disorder Additional Past Medical History / Comment(s): epilepsy History of Any Multi-Drug Resistant Organisms: None Reported Past Surgical History: No Surgical Hx Reported Additional Past Surgical History / Comment(s): Only surgery known was plastic surgery due to ashley as a child. Past Anesthesia/Blood Transfusion Reactions: Unable to Obtain Past Psychological History: Depression, No Psychological Hx Reported Smoking Status: Current every day smoker Past Alcohol Use History: None Reported, Abuse, Daily Past Drug Use History: None Reported - Past Family History Father History Unknown: Yes Family Medical History: Unable to Obtain Mother History Unknown: Yes Family Medical History: Unable to Obtain General Exam - General Exam Comments Initial Comments: General: Appears in no acute distress. HEAD: Normal with no signs of head trauma. EYES: PERRLA, EOMI, conjunctiva normal, no discharge. Pupils are 3+ and equal bilaterally. ENT: Hearing grossly intact, normal oropharynx. RESPIRATORY: Clear breath sounds bilaterally. No wheezes, rales, or rhonchi. C/V: Patient is somewhat bradycardic with a regular rhythm. S1 and S2 auscultated. No peripheral edema. Peripheral pulses are 2+ and intact. ABD: Abd is soft, nontender, nondistended EXT: Normal range of motion, no obvious deformity SKIN: No rashes or lesions observed on exposed skin. NEURO: Alert and oriented 2-3 which is his baseline per caregiver. Cranial nerves II through XII appear to be intact. No focal sensory strength deficits. Patient has intact finger to nose testing as well as intact [id number] testing. He was somewhat unsteady on his feet when standing, however there is no assistance at that since I did not walk the patient. NIH stroke scale is 0. GCS is 15. No focal deficits appreciated. Limitations: no limitations Course Vital Signs 11/25/20 11/25/20 11/25/20 16:23 18:39 18:40 Temperature 97.5 F L Pulse Rate 51 L 44 L Respiratory 16 16 16 Rate Blood Pressure 110/53 104/62 O2 Sat by Pulse 95 99 Oximetry 11/25/20 20:09 Temperature 97.7 F Pulse Rate 48 L Respiratory 18 Rate Blood Pressure 99/62 O2 Sat by Pulse 97 Oximetry Medical Decision Making - Medical Decision Making Based on the patient's presentation and physical exam, patient presents for altered mental status, particularly some urinary incontinence and frequency, complaints of balance issues per caregivers, as well as some increased confusion. Patient currently appears to be at his baseline when I speak with him. Due to his altered mental status, we will obtain a CT head as well as laboratory studies. He will be given a 1 L fluid bolus. We will test patient for COVID-19. He will remain on continuous cardiac monitoring while he is here in the department. Patient and his caregiver in agreement with this plan. Patient's EKG shows sinus bradycardia without any ischemic process which is seen on prior EKGs. Chest x-ray shows cardiomegaly without any acute cardiopulmonary process. Patient's CT head revealed no acute intracranial process with cortical atrophy. No signs of normal pressure hydrocephalus. Laboratory studies are remarkable for an elevated BUN/creatinine and creatinine of 24 and 1.51, indicative of an AK eye. Patient is mildly hypocalcemic. Troponin is negative. Urinalysis is unremarkable. UDS is positive for benzos and barbiturates. Alcohol level is negative. Remainder of his labs are unremarkable. Reevaluation come patient remains unchanged. Due to his AK I continued concern for altered mental status, I would like to admit the patient for fluid hydration and evaluation by neurology. Patient has caregiver were in agreement with this plan. Spoke with the admitting team, Dr. Orourke who accepted the patient. Patient will be admitted to a telemetry bed in serious condition.I consulted neurology as well as placed an order for an MRI. - Lab Data Result diagrams: 11/25/20 17:36 11/25/20 17:36 Lab Results 11/25/20 11/25/20 11/25/20 Range/Units 17:36 17:36 17:36 WBC 3.8 (3.8-10.6) k/uL RBC 4.58 (4.30-5.90) m/uL Hgb 14.3 (13.0-17.5) gm/dL Hct 44.9 (39.0-53.0) % MCV 98.0 (80.0-100.0) fL MCH 31.2 (25.0-35.0) pg MCHC 31.8 (31.0-37.0) g/dL RDW 16.3 H (11.5-15.5) % Plt Count 113 L (150-450) k/uL MPV 8.7 Neutrophils % (Manual) 58 % Band Neuts % (Manual) 3 % Lymphocytes % (Manual) 34 % Monocytes % (Manual) 3 % Eosinophils % (Manual) 2 % Neutrophils # (Manual) 2.30 (1.3-7.7) k/uL Lymphocytes # (Manual) 1.29 (1.0-4.8) k/uL Monocytes # (Manual) 0.11 (0-1.0) k/uL Eosinophils # (Manual) 0.08 (0-0.7) k/uL Nucleated RBCs 0 (0-0) /100 WBC Polychromasia Present Anisocytosis Slight PT (9.0-12.0) sec INR (<1.2) APTT (22.0-30.0) sec Sodium 140 (137-145) mmol/L Potassium 5.1 (3.5-5.1) mmol/L Chloride 109 H (98-107) mmol/L Carbon Dioxide 27 (22-30) mmol/L Anion Gap 4 mmol/L BUN 24 H (9-20) mg/dL Creatinine 1.51 H (0.66-1.25) mg/dL Est GFR (CKD-EPI)AfAm 57 (>60 ml/min/1.73 sqM) Est GFR (CKD-EPI)NonAf 49 (>60 ml/min/1.73 sqM) Glucose 75 (74-99) mg/dL Plasma Lactic Acid Yobany (0.7-2.0) mmol/L Calcium 8.3 L (8.4-10.2) mg/dL Total Bilirubin 0.4 (0.2-1.3) mg/dL AST 22 (17-59) U/L ALT 12 (4-49) U/L Alkaline Phosphatase 61 (38-126) U/L Ammonia (<30) umol/L Troponin I (0.000-0.034) ng/mL Total Protein 5.9 L (6.3-8.2) g/dL Albumin 3.2 L (3.5-5.0) g/dL Urine Color Yellow Urine Appearance Clear (Clear) Urine pH 6.0 (5.0-8.0) Ur Specific Sullivan 1.015 (1.001-1.035) Urine Protein Negative (Negative) Urine Glucose (UA) Negative (Negative) Urine Ketones Negative (Negative) Urine Blood Negative (Negative) Urine Nitrite Negative (Negative) Urine Bilirubin Negative (Negative) Urine Urobilinogen 2.0 (<2.0) mg/dL Ur Leukocyte Esterase Negative (Negative) Urine Opiates Screen Not Detected (NotDetected) Ur Oxycodone Screen Not Detected (NotDetected) Urine Methadone Screen Not Detected (NotDetected) Ur Propoxyphene Screen Not Detected (NotDetected) Ur Barbiturates Screen Detected H (NotDetected) U Tricyclic Antidepress Not Detected (NotDetected) Ur Phencyclidine Scrn Not Detected (NotDetected) Ur Amphetamines Screen Not Detected (NotDetected) U Methamphetamines Scrn Not Detected (NotDetected) U Benzodiazepines Scrn Detected H (NotDetected) Urine Cocaine Screen Not Detected (NotDetected) U Marijuana (THC) Screen Not Detected (NotDetected) Serum Alcohol <10 mg/dL Coronavirus (PCR) (Not Detectd) 11/25/20 11/25/20 11/25/20 Range/Units 17:36 17:36 17:45 WBC (3.8-10.6) k/uL RBC (4.30-5.90) m/uL Hgb (13.0-17.5) gm/dL Hct (39.0-53.0) % MCV (80.0-100.0) fL MCH (25.0-35.0) pg MCHC (31.0-37.0) g/dL RDW (11.5-15.5) % Plt Count (150-450) k/uL MPV Neutrophils % (Manual) % Band Neuts % (Manual) % Lymphocytes % (Manual) % Monocytes % (Manual) % Eosinophils % (Manual) % Neutrophils # (Manual) (1.3-7.7) k/uL Lymphocytes # (Manual) (1.0-4.8) k/uL Monocytes # (Manual) (0-1.0) k/uL Eosinophils # (Manual) (0-0.7) k/uL Nucleated RBCs (0-0) /100 WBC Polychromasia Anisocytosis PT 10.8 (9.0-12.0) sec INR 1.0 (<1.2) APTT 27.2 (22.0-30.0) sec Sodium (137-145) mmol/L Potassium (3.5-5.1) mmol/L Chloride (98-107) mmol/L Carbon Dioxide (22-30) mmol/L Anion Gap mmol/L BUN (9-20) mg/dL Creatinine (0.66-1.25) mg/dL Est GFR (CKD-EPI)AfAm (>60 ml/min/1.73 sqM) Est GFR (CKD-EPI)NonAf (>60 ml/min/1.73 sqM) Glucose (74-99) mg/dL Plasma Lactic Acid Yobany 1.3 (0.7-2.0) mmol/L Calcium (8.4-10.2) mg/dL Total Bilirubin (0.2-1.3) mg/dL AST (17-59) U/L ALT (4-49) U/L Alkaline Phosphatase (38-126) U/L Ammonia <9 (<30) umol/L Troponin I <0.012 (0.000-0.034) ng/mL Total Protein (6.3-8.2) g/dL Albumin (3.5-5.0) g/dL Urine Color Urine Appearance (Clear) Urine pH (5.0-8.0) Ur Specific Sullivan (1.001-1.035) Urine Protein (Negative) Urine Glucose (UA) (Negative) Urine Ketones (Negative) Urine Blood (Negative) Urine Nitrite (Negative) Urine Bilirubin (Negative) Urine Urobilinogen (<2.0) mg/dL Ur Leukocyte Esterase (Negative) Urine Opiates Screen (NotDetected) Ur Oxycodone Screen (NotDetected) Urine Methadone Screen (NotDetected) Ur Propoxyphene Screen (NotDetected) Ur Barbiturates Screen (NotDetected) U Tricyclic Antidepress (NotDetected) Ur Phencyclidine Scrn (NotDetected) Ur Amphetamines Screen (NotDetected) U Methamphetamines Scrn (NotDetected) U Benzodiazepines Scrn (NotDetected) Urine Cocaine Screen (NotDetected) U Marijuana (THC) Screen (NotDetected) Serum Alcohol mg/dL Coronavirus (PCR) (Not Detectd) 11/25/20 Range/Units 18:45 WBC (3.8-10.6) k/uL RBC (4.30-5.90) m/uL Hgb (13.0-17.5) gm/dL Hct (39.0-53.0) % MCV (80.0-100.0) fL MCH (25.0-35.0) pg MCHC (31.0-37.0) g/dL RDW (11.5-15.5) % Plt Count (150-450) k/uL MPV Neutrophils % (Manual) % Band Neuts % (Manual) % Lymphocytes % (Manual) % Monocytes % (Manual) % Eosinophils % (Manual) % Neutrophils # (Manual) (1.3-7.7) k/uL Lymphocytes # (Manual) (1.0-4.8) k/uL Monocytes # (Manual) (0-1.0) k/uL Eosinophils # (Manual) (0-0.7) k/uL Nucleated RBCs (0-0) /100 WBC Polychromasia Anisocytosis PT (9.0-12.0) sec INR (<1.2) APTT (22.0-30.0) sec Sodium (137-145) mmol/L Potassium (3.5-5.1) mmol/L Chloride (98-107) mmol/L Carbon Dioxide (22-30) mmol/L Anion Gap mmol/L BUN (9-20) mg/dL Creatinine (0.66-1.25) mg/dL Est GFR (CKD-EPI)AfAm (>60 ml/min/1.73 sqM) Est GFR (CKD-EPI)NonAf (>60 ml/min/1.73 sqM) Glucose (74-99) mg/dL Plasma Lactic Acid Yobany (0.7-2.0) mmol/L Calcium (8.4-10.2) mg/dL Total Bilirubin (0.2-1.3) mg/dL AST (17-59) U/L ALT (4-49) U/L Alkaline Phosphatase (38-126) U/L Ammonia (<30) umol/L Troponin I (0.000-0.034) ng/mL Total Protein (6.3-8.2) g/dL Albumin (3.5-5.0) g/dL Urine Color Urine Appearance (Clear) Urine pH (5.0-8.0) Ur Specific Sullivan (1.001-1.035) Urine Protein (Negative) Urine Glucose (UA) (Negative) Urine Ketones (Negative) Urine Blood (Negative) Urine Nitrite (Negative) Urine Bilirubin (Negative) Urine Urobilinogen (<2.0) mg/dL Ur Leukocyte Esterase (Negative) Urine Opiates Screen (NotDetected) Ur Oxycodone Screen (NotDetected) Urine Methadone Screen (NotDetected) Ur Propoxyphene Screen (NotDetected) Ur Barbiturates Screen (NotDetected) U Tricyclic Antidepress (NotDetected) Ur Phencyclidine Scrn (NotDetected) Ur Amphetamines Screen (NotDetected) U Methamphetamines Scrn (NotDetected) U Benzodiazepines Scrn (NotDetected) Urine Cocaine Screen (NotDetected) U Marijuana (THC) Screen (NotDetected) Serum Alcohol mg/dL Coronavirus (PCR) Not Detected (Not Detectd) - EKG Data -: EKG Interpreted by Me EKG Comments: 12-lead Electrocardiogram Interpretation Note EKG was reviewed and interpreted by myself. 12-lead ECG performed at 1650 is interpreted by me as revealing sinus bradycardia at a rate of 48 beats per minute. Leon is normal. MO interval is 152 ms, QRS duration is 66 ms, QTc is 423 ms.. There were no ST or T wave abnormalities to suggest myocardial ischemia or injury. R wave progression across the precordium was satisfactory. By my interpretation this EKG is non-diagnostic for acute ischemia. Patient does have a history of sinus bradycardia seen on prior EKGs upon review. Disposition Clinical Impression: Altered mental status, Sinus bradycardia, Dehydration, RAHUL (acute kidney injury), History of epilepsy Disposition: ADMITTED IP TO THIS HOSP Condition: Serious
[2020-11-25] MEDS ORDERED: ONDANSETRON 4 MG/2 ML VIAL IVP PRN (19:27)
[2020-11-25] MEDS ORDERED: NALOXONE 0.4 MG/ML 1 ML VIAL IV PRN (19:27)
[2020-11-25] MEDS: ESCITALOPRAM 10 MG TAB PO SCH (20:28)
[2020-11-25] MEDS: SODIUM CHLORIDE 0.9% 1,000 ML IV SCH (20:28)
[2020-11-25] MEDS: levETIRAcetam 500 MG TAB PO SCH (20:29)
[2020-11-25] MEDS: DIVALPROEX 500 MG TABLET.DR PO SCH (20:29)
[2020-11-25] MEDS: clonazePAM 0.5 MG TAB PO SCH (20:31)
[2020-11-25] MEDS: DESMOPRESSIN 0.2 MG TAB PO SCH (20:31)
[2020-11-25] MEDS: NICOTINE 21MG/24HR PATCH TRANSDERM SCH (22:12)
[2020-11-26] MEDS: LACOSAMIDE 50 MG TABLET PO SCH (09:19)
[2020-11-26] MEDS: ASPIRIN 81 MG PO SCH (09:20)
[2020-11-26] MEDS: levETIRAcetam 500 MG TAB PO SCH ×2 (09:20→21:07)
[2020-11-26] MEDS: DIVALPROEX 500 MG TABLET.DR PO SCH ×3 (09:21→21:06)
[2020-11-26] MEDS: PHENYTOIN SODIUM EXTENDED 100 MG CAP PO SCH ×2 (09:22→17:51)
[2020-11-26] MEDS: PHENYTOIN 50 MG CHEWABLE PO SCH (09:22)
[2020-11-26] MEDS: NICOTINE 21MG/24HR PATCH TRANSDERM SCH (09:30)
[2020-11-26] MEDS: SODIUM CHLORIDE 0.9% 1,000 ML IV SCH (09:32)
--- NOTE | 2020-11-26 09:59 | P.CNNES ---
History of Present Illness Consult date: 11/26/20 Requesting physician: Wolfgang Pringle Reason for Consult: altered mental status History of Present Illness: This is a 60-year-old gentleman with medical history of epilepsy who presented to the emergency department on 11/25/2020 brought by her caregiver being sent by her neurologist for patient worsening of balance over the last 2-3 weeks as well as increase forgetfulness. So the history is obtained from medical records. It seems that the patient has been having polyuria and a loss of bowel movement according to ED note. According to patient he feels about the same and denies any focal weakness, numbness, visual disturbance. Patient denies of any headache, any nausea or vomiting. He feels his walking is at the same and denies any worsening of his walking. He denies of any neck pain or lower back pain. He stated that he does have history of seizure and last seizure was about 6 years ago. Patient follows up with Dr. Hewitt and he is on multiple antiepileptic drugs. Patient could not tell me one was a last time his medication were modified. He does have a history of alcohol use and the last drink was about 10 years ago. He smokes about 3 cigarettes a day. Patient baseline is alert oriented the 2-3 according to the caregiver that was related to the ED team. Some of Patient medication is Keppra thousand milligram 1 tablet twice a day, Klonopin 0.5 mg daily at bedtime, Dilantin extended release 100 mg 1 tablet twice a day as well as an additional 50 mg daily, Vimpat 50 mg daily, Depakote thousand milligram 1 tablet twice a day an additional 500 mg daily at bedtime, Fanapt 4mg 1 tab bid, ASA 81mg daily and Desmopressin 0.4mg daily. Of Note the patient had 2 EEGs in our facility in 2015 and the on the 2015 and it is reported as mildly abnormal diffuse fashion due to slowing EEG b ackground. There are no focal slowing, epileptiform discharges. I'll on 2015 he had another EEG and it's reported as abnormal due to the presence of generalized slowing of the background rhythm mostly in theta range consistent mild encephalopathy. Occasional sharp wave activities also seen with reduced seizure threshold. He doesn't mention were that sharply activity is coming from. In the body of the report it is mentioned that no generalized epileptiform discharges were seen. He was seen in our facility by Dr. Tracey Hewitt neuro-hospitalist in 2016 for seizures Some of the workup in hospital consisted of: Initial vital signs is a blood pressure of 110/53, heart rate of 51, respiratory of 16, temperature of 97.5 for oral and pulse ox of 95% room air. Patient heart rate got as low as 43 area the patient has been afebrile so far during this admission CT of the head is reported as cerebral atrophy. No acute intracranial abnormality. No change. Personally reviewed the CT of the head and I don't see any acute or subacute ischemia. I don't see any appreciable mass. White blood cells 3.8 thousand Sodium is 140, glucose is 75, calcium is 8.3, AST of 22, ALT of 12, ammonia is less than 9. creatnine 1.51 and the last creatinine our system was in October and it was 1.04 but patient had the 2 episodes in our system where was 1.40 but for the most part his creatinine is normal. EKG is reported as marked sinus bradycardia. Possible left atrial enlargement. Urinalysis negative for urinary tract infection Urine drug screen is positive for barbiturates as well as benzoyl. Otherwise the rest is nondetected. Serum alcohol was less than 10. Phenytoin level as 11.7 which is considered therapeutic Vargas virus PCR is nondetected. Review of Systems Review of system: The 12 point system was reviewed and apparent positive and negative per HPI. Past Medical History Past Medical History: Seizure Disorder Additional Past Medical History / Comment(s): epilepsy History of Any Multi-Drug Resistant Organisms: None Reported Past Surgical History: No Surgical Hx Reported Additional Past Surgical History / Comment(s): Only surgery known was plastic surgery due to ashley as a child. Past Anesthesia/Blood Transfusion Reactions: Unable to Obtain Past Psychological History: Depression, No Psychological Hx Reported Smoking Status: Current every day smoker Past Alcohol Use History: None Reported, Abuse, Daily Past Drug Use History: None Reported - Past Family History Father History Unknown: Yes Family Medical History: Unable to Obtain Mother History Unknown: Yes Family Medical History: Unable to Obtain Medications and Allergies Home Medications Medication Instructions Recorded Confirmed Type Desmopressin Acetate 0.4 mg PO HS@199907/13/15 11/25/20 History Aspirin EC [Ecotrin Low Dose] 81 mg PO DAILY@0700 10/05/1615/21 History Lacosamide [Vimpat] 50 mg PO DAILY@69910/05/16 11/25/20 History clonazePAM [KlonoPIN] 0.5 mg PO HS@199910/05/16 11/25/20 History levETIRAcetam [Keppra] 1,000 mg PO BID@0700,199910/05/16 11/25/20 History Divalproex [Depakote] 1,000 mg PO BID@0700,159910/20/20 11/25/20 History Escitalopram [Lexapro] 10 mg PO HS@199910/20/20 11/25/20 History Iloperidone [Fanapt] 4 mg PO BID@699,199910/20/20 11/25/20 History Phenytoin Chew [Dilantin Chew] 50 mg PO DAILY@0710/20/20 11/25/20 History Phenytoin Sodium Extended 100 mg PO BID@0700,1600 10/20/20 11/25/20 History [Dilantin] Divalproex [Depakote] 500 mg PO HS@199911/25/20 11/25/20 History Allergies Allergy/AdvReac Type Severity Reaction Status Date / Time No Known Allergies Allergy Verified 11/25/20 17:57 Physical Examination - Vital Signs Vital Signs: Vital Signs Temp Pulse Pulse Resp BP BP BP 11/26/20 07:00 97.5 F L 44 L 17 112/64 11/26/20 02:00 97.5 F L 43 L 18 109/67 11/25/20 21:38 97.5 F L 45 L 16 138/82 11/25/20 20:09 97.7 F 48 L 18 99/62 11/25/20 18:40 16 11/25/20 18:39 44 L 16 104/62 11/25/20 16:23 97.5 F L 51 L 16 110/53 Pulse Ox 11/26/20 07:00 97 11/26/20 02:00 98 11/25/20 21:38 99 11/25/20 20:09 97 11/25/20 18:40 11/25/20 18:39 99 11/25/20 16:23 95 Intake and Output 11/25/20 11/26/20 11/26/20 22:59 06:59 14:59 Other: Voiding Method Toilet Urinal # Voids 1 1 Weight 68.039 kg GENERAL: The patient appears older than his age and appears cachectic is lying in bed and is not in acute distress. CHEST: The heart rate is regular rate rhythm. No murmurs to auscultation. No carotid bruit bilaterally. LUNG: Clear to auscultation bilaterally no wheezing noted throughout. Not labored breathing. ABDOMEN/GI: Bowel sounds present in all 4 quadrants. No tenderness to palpation throughout. PSYCH: Tangential in thought process. NEUROLOGICAL: Higher mental function: The patient is awake, alert, oriented to self, place. He is correctly states the month but not year (and he said this is chronic and Per ED note his baseline is oriented X2-3). Patient correctly names objects (pen, watch and glasses). Patient is following simple commands and at times had to repeat commands for him to perform it. No aphasia and no neglect. Cranial nerves: The pupils are round, equal and reactive to light. Visual maldonado are full to confrontation throughout. Extraocular movement is intact no nystagmus is noted. Facial sensation is normal to touch throughout. The facial strength is normal throughout. Hearing is severely decreased bilaterally to hand rub. Tongue is midline and moved [id number] without any difficulty. No dysarthria is noted. Shoulder shrug is normal bilaterally. Motor: Gait is unsteady but not swaying toward right or left and not requiring any assistance in walking. The strength is 5 over 5 throughout uppers. While lowers are 5/5, knee extensor are 4+ to 5- bilaterally (limited because of cooperation) and ankles are 5- bilaterally. Normal tone. Atrophy in first dorsal interosseous. . Cerebellum: Normal finger to nose bilaterally. Sensation: Sensation is normal to touch throughout. Reflexes (right/left): 2+ throughout upper while lowers are 1+ bilaterally. Plantars are mute bilaterally. Results - Laboratory Findings CBC and BMP: 11/25/20 17:36 11/25/20 17:36 Abnormal Lab Findings: Abnormal Labs 11/25/20 11/25/20 11/25/20 17:36 17:36 17:36 RDW 16.3 H Plt Count 113 L Chloride 109 H BUN 24 H Creatinine 1.51 H Calcium 8.3 L Total Protein 5.9 L Albumin 3.2 L Ur Barbiturates Screen Detected H U Benzodiazepines Scrn Detected H Assessment and Plan Assessment: * Worsening of his balance and increase forgetfulness for past 2-3 weeks that is reported (per patient he feels about the same. On examination mentation is at baseline compared to what is reported to the ED). His symptoms could be due to possibly due to polypharmacy. He has a small component of metabolic encephalopathy. It is possible that patient has underlying cognitive impairement/dementia. * History of epilepsy (according to patient last seizure was 6 years ago) and he is on multiple antiepileptic drugs * Acute kidney injury * History of alcohol use (last consumption was 10 years ago) * Tobacco use (about 3 cigarettes/day) Plan: * I ordered Depakote level, Keppra level. Ordered TSH, vitamin B12, folate level and HbA1c (since cause cause ataxia). * MRI of the brain w/ and w/o is ordered by the ED team and is pending * Patient home seizure medication were restarted. I recommend the patient to follow-up with his neurologist in outpatient and to attempt to have his medication modified (Patient is on multiple antiepileptic drugs and not sure if some of his medications can be cut down and will defer that to his neurologist as outpatient). * Ordered CT Cervical spine. * EEG is not warranted as inpatient and recommend as outpatient (since according to patient his last seizure was 6 years ago). * Continue neuro checks * Patient is on seizure precaution and seizure pads. * Ordered PT and OT. * Recommend EMG with ncs study and a neuropsych evaluation (for detailed memory examination) as outpatient. * We'll defer the rest of the medical management to the primary team * Upon discharge the patient needs to follow up with his neurologist (Dr. Hewitt) within 1-2 weeks. The plan is discussed with the patient's nurse. Will attempt to get hold of his home care physical therapist. Thank you for the consultation. Bryce Melara MD Neuro-Hospitalist. Time with Patient: Greater than 30
[2020-11-26 12:03] LABS: Valproic Acid (Depakene) 25.9 ug/mL
--- NOTE | 2020-11-26 15:36 | CT ---
EXAMINATION TYPE: CT cervical spine wo con DATE OF EXAM: 11/26/2020 COMPARISON: 10/27/2010 HISTORY: Atrophy of right hand and unsteady gait CT DLP: 339.60 mGycm Automated exposure control for dose reduction was used. Images obtained from the skull base to T1 vertebra without contrast. Cervical vertebra have fairly normal alignment. There is hypertrophic anterior spurring from C3 to C7 . There is mild spurring in the facet joints in the lower cervical spine. There is no significant dis c space narrowing. There is no compression fracture. I see no significant spinal stenosis. There is p osterior disc bulging at C3-4 and C4-5 and C5-6. Spinal canal measures 7.5 mm at C4-5. 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 No fracture. I do not see sign of significant spinal stenosis.
--- NOTE | 2020-11-26 15:59 | MR ---
EXAMINATION TYPE: MR brain wo/w con DATE OF EXAM: 11/26/2020 COMPARISON: 08/04/2012 HISTORY: AMS CONTRAST: Standard multiplanar, multisequence MRI departmental protocol utilizing 7 mL intravenous Gadavist jethro olinium contrast. There is cerebral cortical atrophy. There is no mass effect nor midline shift. Diffusion images show no sign of an acute infarct. There is some mild linear increased signal in the periventricular white matter on the FLAIR images. There is mild enlargement of the ventricles. There is thinning of the cor pus callosum. The brainstem appears intact. Sella turcica appears intact. There is no evidence of orb ital mass. Contrast images show no pathologic enhancement. There is normal enhancement of the venous sinuses. IMPRESSION: Cerebral atrophy and hydrocephalus. No acute intracranial abnormality. There is not a significant glendy nge compared to old exam.
--- NOTE | 2020-11-26 16:13 | P.HPIM ---
History of Present Illness H&P Date: 11/26/20 Chief Complaint: Worsening balance and forgetfulness. History of presenting complaint: This is a 60-year-old patient who follows with visiting physicians. Point the ER he was brought in by his caregiver being sent in by the neurologist. There was concern over worsening balance over to 3 weeks as well as increasing forgetfulness and some incontinence of urine and bowel. Patient denies any cough shortness of breath or urinary symptoms. No abdominal pain. She states that he goes to work at the place: [employer] and is cleaning and cooking. He says that he was simply tired. He is not sure why he is being brought in here. Appetite is fair. Review of systems: GEN.: Tired EYES: None HEENT: None NECK: None RESPIRATORY: None CARDIOVASCULAR: None GASTROINTESTINAL: None GENITOURINARY: None MUSCULOSKELETAL: None LYMPHATICS: None HEMATOLOGICAL: None PSYCHIATRY: None NEUROLOGICAL: None Past medical history to include: Seizure disorder, Social history: Lives at [facility] home. Smokes half a pack a day. Stop alcohol over 60s ago. Family history: Reviewed, noncontributory to presentation Physical examination: VITAL SIGNS: 97.5/51, 16, 110/53, 95% on room air GENERAL: BMI 20.9, laying in bed, comfortable. EYES: Pupils equal. Conjunctiva normal. HEENT: External appearance of nose and ears normal, oral cavity grossly normal. NECK: JVD not raised; masses not palpable. HEART: First and second heart sounds are normal; no edema. LUNGS: Respiratory rate normal; clear to auscultation. ABDOMEN: Soft, nontender, liver spleen not palpable, no masses palpable. PSYCH: Slightly decreased sensorium. Able to answer simple questions.l. NEUROLOGICAL: Cranial nerves grossly intact; no facial asymmetry, power and sensation grossly intact. LYMPHATICS: No lymph nodes palpable in the axilla and neck INVESTIGATIONS, reviewed in the clinical context: WBC 3.8 hemoglobin 14.3 platelets 113 sodium 140 potassium 5.1 BUN 24 creatinine 1.5 on UA negative Urine drug screen positive for barbiturates, benzodiazepine Serum alcohol less than 10 Coronavirus [PCF]: Not detected EKG tracing personally reviewed by me-no sinus rhythm Computed tomography scan of the brain: Cerebral atrophy. 11/19/2020: BUN 20 creatinine 1.04 Chest x-ray film personally reviewed by me-cardiomegaly. Lung maldonado clear Assessment and plan -Acute metabolic encephalopathy from acute kidney injury IV fluids -Acute kidney injury. Could be prerenal. IV fluids -Seizure disorder Continue antiepileptics. -Rule out acute seizure episode Home medications resumed. IV fluids. Neurology consult. Seizure precautions Past Medical History Past Medical History: Seizure Disorder Additional Past Medical History / Comment(s): epilepsy History of Any Multi-Drug Resistant Organisms: None Reported Past Surgical History: No Surgical Hx Reported Additional Past Surgical History / Comment(s): Only surgery known was plastic surgery due to ashley as a child. Past Anesthesia/Blood Transfusion Reactions: Unable to Obtain Past Psychological History: Depression, No Psychological Hx Reported Smoking Status: Current every day smoker Past Alcohol Use History: None Reported, Abuse, Daily Past Drug Use History: None Reported - Past Family History Father History Unknown: Yes Family Medical History: Unable to Obtain Mother History Unknown: Yes Family Medical History: Unable to Obtain Medications and Allergies Home Medications Medication Instructions Recorded Confirmed Type Desmopressin Acetate 0.4 mg PO HS@199907/13/15 11/25/20 History Aspirin EC [Ecotrin Low Dose] 81 mg PO DAILY@0700 10/05/16 11/25/20 History Lacosamide [Vimpat] 50 mg PO DAILY@00 10/05/16 11/25/20 History clonazePAM [KlonoPIN] 0.5 mg PO HS@199910/05/16 11/25/20 History levETIRAcetam [Keppra] 1,000 mg PO BID@0700,199910/05/16 11/25/20 History Divalproex [Depakote] 1,000 mg PO BID@0700,1600 10/20/20 11/25/20 History Escitalopram [Lexapro] 10 mg PO HS@199910/20/20 11/25/20 History Iloperidone [Fanapt] 4 mg PO BID@0700,199910/20/20 11/25/20 History Phenytoin Chew [Dilantin Chew] 50 mg PO DAILY@0700 10/20/20 11/25/20 History Phenytoin Sodium Extended 100 mg PO BID@0700,1600 10/20/20 11/25/20 History [Dilantin] Divalproex [Depakote] 500 mg PO HS@199911/25/20 11/25/20 History Allergies Allergy/AdvReac Type Severity Reaction Status Date / Time No Known Allergies Allergy Verified 11/25/20 17:57 Physical Exam Vitals: Vital Signs Temp Pulse Pulse Resp BP BP BP 11/26/20 07:00 97.5 F L 44 L 17 112/64 11/26/20 02:00 97.5 F L 43 L 18 109/67 11/25/20 21:38 97.5 F L 45 L 16 138/82 11/25/20 20:09 97.7 F 48 L 18 99/62 11/25/20 18:40 16 11/25/20 18:39 44 L 16 104/62 11/25/20 16:23 97.5 F L 51 L 16 110/53 Pulse Ox 11/26/20 07:00 97 11/26/20 02:00 98 11/25/20 21:38 99 11/25/20 20:09 97 11/25/20 18:40 11/25/20 18:39 99 11/25/20 16:23 95 Intake and Output 11/25/20 11/26/20 11/26/20 22:59 06:59 14:59 Other: Voiding Method Toilet Urinal # Voids 1 1 Weight 68.039 kg Results CBC & Chem 7: 11/25/20 17:36 11/25/20 17:36 Labs: Abnormal Lab Results - Last 24 Hours (Table) 11/25/20 11/25/20 11/25/20 Range/Units 17:36 17:36 17:36 RDW 16.3 H (11.5-15.5) % Plt Count 113 L (150-450) k/uL Chloride 109 H (98-107) mmol/L BUN 24 H (9-20) mg/dL Creatinine 1.51 H (0.66-1.25) mg/dL Calcium 8.3 L (8.4-10.2) mg/dL Total Protein 5.9 L (6.3-8.2) g/dL Albumin 3.2 L (3.5-5.0) g/dL Ur Barbiturates Screen Detected H (NotDetected) U Benzodiazepines Scrn Detected H (NotDetected) Thrombosis Risk Factor Assmnt - Choose All That Apply Each Risk Factor Represents 2 Points: Age 61-74 years Thrombosis Risk Factor Assessment Total Risk Factor Score: 2 Thrombosis Risk Factor Assessment Level: Low Risk
[2020-11-26] MEDS: LACTATED RINGERS 1,000 ML IV SCH ×2 (17:44→23:55)
[2020-11-26] MEDS: ENOXAPARIN 40 MG/0.4 ML SYRINGE SQ SCH (17:51)
[2020-11-26 18:23] LABS: Folate, Serum 8.5 ng/mL (4.40-31.00)
[2020-11-26 19:56] VITALS: PULSE 48; RESP 16
[2020-11-26] MEDS: DESMOPRESSIN 0.2 MG TAB PO SCH (21:06)
[2020-11-26] MEDS: clonazePAM 0.5 MG TAB PO SCH (21:06)
[2020-11-26] MEDS: ESCITALOPRAM 10 MG TAB PO SCH (21:07)
[2020-11-27] MEDS: LACOSAMIDE 50 MG TABLET PO SCH (08:25)
[2020-11-27] MEDS: NICOTINE 21MG/24HR PATCH TRANSDERM SCH ×2 (08:26→08:35)
[2020-11-27] MEDS: ENOXAPARIN 40 MG/0.4 ML SYRINGE SQ SCH (08:26)
[2020-11-27] MEDS: ASPIRIN 81 MG PO SCH (08:26)
[2020-11-27] MEDS: DIVALPROEX 500 MG TABLET.DR PO SCH (08:27)
[2020-11-27] MEDS: levETIRAcetam 500 MG TAB PO SCH (08:28)
[2020-11-27] MEDS: PHENYTOIN SODIUM EXTENDED 100 MG CAP PO SCH (08:28)
[2020-11-27] MEDS: PHENYTOIN 50 MG CHEWABLE PO SCH (08:29)
[2020-11-27 09:12] VITALS: BP 137/56; TEMP 97.5
--- NOTE | 2020-11-27 09:35 | P.PN ---
Subjective Progress Note Date: 11/27/20 The patient is seen at bedside and he stated he is doing well and is at baseline. Denies of any new neurological complaints. Objective - Vital Signs Vital signs: Vital Signs Temp 97.4 F L 11/27/20 01:01 Pulse 48 L 11/27/20 01:01 Resp 16 11/27/20 01:01 BP 108/62 11/27/20 01:01 Pulse Ox 99 11/27/20 01:01 Intake & Output 11/26/20 11/27/20 11/27/20 18:59 06:59 18:59 Output Total 100 Balance -100 Output: Urine 100 Other: Voiding Method Toilet Toilet Urinal Urinal # Voids 2 2 # Bowel Movements 1 0 - Exam GENERAL: The patient appears older than his age and appears cachectic is lying in bed and is not in acute distress. NEUROLOGICAL: Higher mental function: The patient is awake, alert, oriented to self, place. He is correctly states the month but not year (and he said this is chronic and Per ED note his baseline is oriented X2-3). Patient correctly names objects (pen, watch and glasses). Patient is following simple commands and at times had to repeat commands for him to perform it. No aphasia and no neglect. Cranial nerves: The pupils are round, equal and reactive to light. Visual maldonado are full to confrontation throughout. Extraocular movement is intact no nystagmus is noted. Facial sensation is normal to touch throughout. The facial strength is normal throughout. Hearing is severely decreased bilaterally to hand rub. Tongue is midline and moved [id number] without any difficulty. No dysarthria is noted. Shoulder shrug is normal bilaterally. Motor: Gait is unsteady but not swaying toward right or left and not requiring any assistance in walking. The strength is 5 over 5 throughout uppers. While lowers are 5/5, knee extensor are 4+ to 5- bilaterally (limited because of cooperation) and ankles are 5- bilaterally. Normal tone. Atrophy in first dorsal interosseous. . Cerebellum: Normal finger to nose bilaterally. Sensation: Sensation is normal to touch throughout. Reflexes (right/left): 2+ throughout upper while lowers are 1+ bilaterally. Plantars are mute bilaterally. WORK-UP: Ammonia level is less than 9 Vitamin B12 is 461 Folate level is a 8.51 Hemoglobin A1c is 5.2. Urine toxicology screen is positive for barbiturates and benzo. Serum alcohol level is less than 10. Phenytoin level is 11.17 which is within normal limits. Good level is 25.9 which is considered the subtherapeutic. MR the brain is reported as cerebral atrophy and hydrocephalus. No acute intracranial abnormality. There is not a significant change compared to old exam. CT cervical spine is reported as spondylitic hypertrophic degenerative change in the cervical spine with mild progression compared to old exam. No fracture. I don't see sign of significant spinal stenosis. I personally reviewed that CT and I also don't appreciate any significant cervical spondylosis. - Labs CBC & Chem 7: 11/25/20 17:36 11/25/20 17:36 Labs: Microbiology - Last 24 Hours (Table) 11/25/20 19:39 Blood Culture - Preliminary Blood No Growth after 24 hours 11/25/20 19:55 Blood Culture - Preliminary Blood No Growth after 24 hours Assessment and Plan Assessment: * Worsening of his balance and increase forgetfulness for past 2-3 weeks that is reported (per patient he feels about the same. On examination mentation is at baseline compared to what is reported to the ED). His symptoms could be due to possibly due to polypharmacy. He has a small component of metabolic encephalopathy. It is possible that patient has underlying cognitive impairement/dementia. * History of epilepsy (according to patient last seizure was 6 years ago) and he is on multiple antiepileptic drugs * Acute kidney injury * History of alcohol use (last consumption was 10 years ago) * Tobacco use (about 3 cigarettes/day) Plan: * Pending Keppra level, TSH level. If TSH is abnormal will defer management to the primary team. * Patient home seizure medication were restarted. I recommend the patient to follow-up with his neurologist in outpatient and to attempt to have his medication modified (Patient is on multiple antiepileptic drugs and not sure if some of his medications can be cut down and will defer that to his neurologist as outpatient). * EEG is not warranted as inpatient and recommend as outpatient (since according to patient his last seizure was 6 years ago). * Continue neuro checks * Patient is on seizure precaution and seizure pads. * PT and OT are consulted * Recommend EMG with ncs study and a neuropsych evaluation (for detailed memory examination) as outpatient. * We'll defer the rest of the medical management to the primary team * Upon discharge the patient needs to follow up with his neurologist (Dr. Hewitt) within 1-2 weeks. The plan is discussed with the patient's nurse. The patient is clear for discharge from neurological perspective. Bryce Melara MD Neuro-Hospitalist. Time with Patient: Less than 30
[2020-11-27] MEDS: LACTATED RINGERS 1,000 ML IV SCH (11:25)
[2020-11-27 12:33] LABS: African American GFR (CKD) >90 (>60 ml/min/1.73 sqM); Anion Gap 5 mmol/L; Blood Urea Nitrogen 18 mg/dL (9-20); Calcium 8.5 mg/dL (8.4-10.2); Carbon Dioxide 23 mmol/L (22-30); Chloride 106 mmol/L (98-107); Glucose 70 mg/dL (74-99); Non-African American GFR(CKD) 82 (>60 ml/min/1.73 sqM); Potassium 5.7 mmol/L (3.5-5.1); Sodium 134 mmol/L (137-145)
--- NOTE | 2020-11-27 14:46 | P.DS ---
Providers Date of admission: 11/25/20 19:27 Expected date of discharge: 11/27/20 Attending physician: Babak Orourke Consults: 11/25/20 19:27 Consult Physician Routine Consulting Provider: Bryce Melara Consult Reason/Comments: AMS. Do you want consulting provider notified?: Yes Primary care physician: JACY Flanagan Hospital Course: Chief Complaint: Worsening balance and forgetfulness. History of presenting complaint: This is a 60-year-old patient who follows with visiting physicians. Point the ER he was brought in by his caregiver being sent in by the neurologist. There was concern over worsening balance over to 3 weeks as well as increasing forgetfulness and some incontinence of urine and bowel. Patient denies any cough shortness of breath or urinary symptoms. No abdominal pain. She states that he goes to work at the place: [employer] and is cleaning and cooking. He says that he was simply tired. He is not sure why he is being brought in here. Appetite is fair. Patient was admitted with acute metabolic encephalopathy from acute kidney injury. Given IV fluids. Seen by neurology. Not felt to be seizures. November 27: Patient back at his baseline. Patient's labs came back after he was discharged. Potassium 5.7. Kayexalate 30 g twice today has been called into his pharmacy. Nurse also called his [place] [facility] to get the medications and today and check his labs tomorrow. Discussion and discharge planning more than 35 minutes Consultation: Dr. Melara from neurology Past medical history to include: Seizure disorder, Social history: Lives at [facility] home. Smokes half a pack a day. Stop alcohol over 60s ago. Family history: Reviewed, noncontributory to presentation Physical examination: VITAL SIGNS: 97.5, 138, 16, 1 37 x 56, 99% room air GENERAL: Awake, comfortable EYES: Pupils equal. Conjunctiva normal. HEENT: External appearance of nose and ears normal, oral cavity grossly normal. NECK: JVD not raised; masses not palpable. HEART: First and second heart sounds are normal; no edema. LUNGS: Respiratory rate normal; clear to auscultation. ABDOMEN: Soft, nontender, liver spleen not palpable, no masses palpable. PSYCH: Awake, answering questions appropriately INVESTIGATIONS, reviewed in the clinical context: November 27: Potassium 5.7 creatinine 0.99 WBC 3.8 hemoglobin 14.3 platelets 113 sodium 140 potassium 5.1 BUN 24 creatinine 1.5 on UA negative Urine drug screen positive for barbiturates, benzodiazepine Serum alcohol less than 10 Coronavirus [PCF]: Not detected EKG tracing personally reviewed by me-no sinus rhythm Computed tomography scan of the brain: Cerebral atrophy. 11/19/2020: BUN 20 creatinine 1.04 Chest x-ray film personally reviewed by me-cardiomegaly. Lung maldonado clear Assessment and plan -Acute metabolic encephalopathy from acute kidney injury: Corrected IV fluids -Acute kidney injury. Prerenal: Corrected IV fluids -Seizure disorder Continue antiepileptics. -Hyperkalemia Acute kidney injury Kayexalate 30 g 2 doses to be taken today. Disposition: Home Plan - Discharge Summary Discharge Rx Participant: No New Discharge Prescriptions: New Nicotine 21Mg/24Hr Patch [Habitrol] 1 patch TRANSDERM DAILY #14 patch Continue Desmopressin Acetate 0.4 mg PO HS@1999 clonazePAM [KlonoPIN] 0.5 mg PO HS@1999 Lacosamide [Vimpat] 50 mg PO DAILY@0700 levETIRAcetam [Keppra] 1,000 mg PO BID@699,1999 Aspirin EC [Ecotrin Low Dose] 81 mg PO DAILY@0700 Divalproex [Depakote] 1,000 mg PO BID@0700,1600 Phenytoin Chew [Dilantin Chew] 50 mg PO DAILY@0700 Escitalopram [Lexapro] 10 mg PO HS@1999 Phenytoin Sodium Extended [Dilantin] 100 mg PO BID@0700,1600 Iloperidone [Fanapt] 4 mg PO BID@699,1999 Divalproex [Depakote] 500 mg PO HS@1999 Discharge Medication List Desmopressin Acetate 0.4 mg PO HS@199907/13/15 [History] Aspirin EC [Ecotrin Low Dose] 81 mg PO DAILY@0700 10/05/16 [History] Lacosamide [Vimpat] 50 mg PO DAILY@0700 10/05/16 [History] clonazePAM [KlonoPIN] 0.5 mg PO HS@199910/05/16 [History] levETIRAcetam [Keppra] 1,000 mg PO BID@0700,199910/05/16 [History] Divalproex [Depakote] 1,000 mg PO BID@0700,1600 10/20/20 [History] Escitalopram [Lexapro] 10 mg PO HS@199910/20/20 [History] Iloperidone [Fanapt] 4 mg PO BID@0700,199910/20/20 [History] Phenytoin Chew [Dilantin Chew] 50 mg PO DAILY@0700 10/20/20 [History] Phenytoin Sodium Extended [Dilantin] 100 mg PO BID@0700,1600 10/20/20 [History] Divalproex [Depakote] 500 mg PO HS@199911/25/20 [History] Nicotine 21Mg/24Hr Patch [Habitrol] 1 patch TRANSDERM DAILY #14 patch 11/27/20 [Rx] Follow up Appointment(s)/Referral(s): neurologist,own [Other] - 1 Week Amilcar Goel NPC [Primary Care Provider] - 1-2 days Activity/Diet/Wound Care/Special Instructions: BMP - 3 days Discharge Disposition: HOME SELF-CARE
[2020-11-28 08:57] LABS: Levetiracetam (Keppra) 32.8 ug/mL (3.0-60.0)
== END 2020-11-27 14:25 | disposition home or self-care (01) ==
LOC: EC 16:19 → 6NMEDSUR 19:27
PROVIDERS: ADMIT Hospitalist; ATTEND Hospitalist
DX: G93.41 Metabolic encephalopathy (principal); N17.9 Acute kidney failure, unspecified; E86.0 Dehydration; E87.5 Hyperkalemia; R35.89 Other polyuria; E83.51 Hypocalcemia; R32 Unspecified urinary incontinence; R15.9 Full incontinence of feces; R00.1 Bradycardia, unspecified; G40.909 Epilepsy, unspecified, not intractable, without status epilepticus; F17.210 Nicotine dependence, cigarettes, uncomplicated; G31.9 Degenerative disease of nervous system, unspecified; I51.7 Cardiomegaly; F32.9 Major depressive disorder, single episode, unspecified; Z20.822 Contact with and (suspected) exposure to COVID-19; Z79.82 Long term (current) use of aspirin; Z79.899 Other long term (current) drug therapy
CPT/HCPCS: 96361; 96372 ×2; 96360; 99285; 36415; 93005; 80164; 80165; 80053; 80048; 80177; 84443; 82607; 82140; 80185; 82746; 83605; 84484 ×2; 85025; 85610; 85730; 81003; 87040; 80306; 83036; 87635; 71046; 72125; 70450; 70553; G0378 ×3; G0480; S4990 ×3; J1650 ×2; A9585; 80320

== ENCOUNTER → 2020-11-29 | Outpatient (CLI) | payer OTHER ==
[2020-11-30 05:40] LABS: African American GFR (CKD) 77.5 (60.0-200.0); BUN/Creat Ratio 12.82 Ratio (12.00-20.00); Calcium 8.5 mg/dL (8.7-10.3); Non-African American GFR(CKD) 66.9 (60.0-200.0); Potassium 4.6 mmol/L (3.5-5.5)
== END | disposition home or self-care (01) ==
LOC: LABWHC1 12:45
PROVIDERS: ATTEND Hospitalist
DX: E83.51 Hypocalcemia (principal); E87.5 Hyperkalemia; R53.1 Weakness; R35.89 Other polyuria; E86.0 Dehydration
CPT/HCPCS: 36415; 80048

== ENCOUNTER → 2021-02-13 | Outpatient (CLI) | payer OTHER ==
[2021-02-13 19:10] LABS: Basophils # (A) 0.03 X 10*3/uL (0.00-0.10); Basophils % (A) 0.7 %; Eosinophils # (A) 0.02 X 10*3/uL (0.04-0.35); Eosinophils % (A) 0.5 %; HCT 44.2 % (39.6-50.0); HGB 14.5 g/dL (13.0-17.0); Lymphocytes # (A) 1.34 X 10*3/uL (0.90-5.00); Lymphocytes % (A) 31.4 %; MCH 30.2 pg (27.0-32.0); MCHC 32.8 g/dL (32.0-37.0); MCV 92.1 fL (80.0-97.0); Mean Platelet Volume 11.7 fL (9.5-12.2); Monocytes # (A) 0.38 X 10*3/uL (0.20-1.00); Monocytes % (A) 8.9 %; Neutrophils # (A) 2.49 X 10*3/uL (1.80-7.70); Neutrophils % (A) 58.3 %; Platelet Count 135 X 10*3/uL (140-440); RDW 16.2 % (11.5-14.5); WBC 4.27 X 10*3/uL (4.50-10.00)
[2021-02-13 22:14] LABS: Phenytoin (Dilantin) 6.6 ug/mL (10.0-20.0)
[2021-02-14 01:41] LABS: Valproic Acid (Depakene) 30.4 ug/mL (50.0-100.0)
[2021-02-14 11:34] LABS: Levetiracetam (Keppra) 5.8 ug/mL (3.0-60.0)
== END | disposition home or self-care (01) ==
LOC: LABWHC1 10:55
PROVIDERS: ATTEND Psychiatry & Neurology Neurology
DX: G40.209 Localization-related (focal) (partial) symptomatic epilepsy and epileptic syndromes with complex partial seizures, not intractable, without status epilepticus (principal)
CPT/HCPCS: 36415; 80164; 80177; 80185; 80235; 84450; 84460; 85025

== ENCOUNTER → 2021-03-07 | Outpatient (CLI) | payer OTHER ==
[2021-03-07 20:38] LABS: Valproic Acid (Depakene) 56.2 ug/mL (50.0-100.0)
[2021-03-07 22:57] LABS: Phenytoin (Dilantin) 4.4 ug/mL (10.0-20.0)
== END | disposition home or self-care (01) ==
LOC: LABWHC1 08:35
PROVIDERS: ATTEND Psychiatry & Neurology Neurology
DX: G40.209 Localization-related (focal) (partial) symptomatic epilepsy and epileptic syndromes with complex partial seizures, not intractable, without status epilepticus (principal)
CPT/HCPCS: 36415; 80164; 80177; 80185

== ENCOUNTER 2021-06-17 10:36 | Observation (INO) | payer OTHER ==
[2021-06-17 11:41] LABS: Albumin 3.5 g/dL (3.5-5.0); Total Bilirubin 0.5 mg/dL (0.2-1.3); Total Protein 6.5 g/dL (6.3-8.2)
[2021-06-17 11:43] LABS: Calcium 8.6 mg/dL (8.4-10.2)
[2021-06-17 11:52] LABS: Basophils # (A) 0.1 k/uL (0-0.2); Basophils % (A) 1 %; Eosinophils % (A) 1 %; HCT 47.3 % (39.0-53.0); Lymphocytes # (A) 0.5 k/uL (1.0-4.8); Lymphocytes % (A) 9 %; MCH 30.5 pg (25.0-35.0); MCHC 31.7 g/dL (31.0-37.0); MCV 96.2 fL (80.0-100.0); Monocytes # (A) 0.7 k/uL (0-1.0); Monocytes % (A) 12 %; Neutrophils # (A) 4.4 k/uL (1.3-7.7); Neutrophils % (A) 75 %; RBC 4.92 m/uL (4.30-5.90); RDW 15.6 % (11.5-15.5); WBC 5.9 k/uL (3.8-10.6)
[2021-06-17 12:05] LABS: Platelet Count 88 k/uL (150-450)
[2021-06-17 12:08] LABS: Partial Thromboplastin Time 26.4 sec (22.0-30.0); Prothrombin Time 10.8 sec (9.0-12.0)
[2021-06-17 12:21] LABS: Potassium 5.3 mmol/L (3.5-5.1)
[2021-06-17 12:36] LABS: Glucose,Whole Blood 83 mg/dL (75-99)
[2021-06-17] MEDS ORDERED: SODIUM CHLORIDE 0.9% 1,000 ML IV ONE (12:50)
[2021-06-17 13:22] LABS: Appearance,Urine Clear (Clear); Bilirubin,Urine Negative (Negative); Blood,Urine Negative (Negative); Color,Urine Yellow; Glucose,Urine (UA) Negative (Negative); Ketones,Urine 1+ (Negative); Leukocyte Esterase,Urine Negative (Negative); Nitrite,Urine Negative (Negative); Protein,Urine Negative (Negative); Specific Gravity,Urine 1.018 (1.001-1.035); Urobilinogen,Urine <2.0 mg/dL (<2.0)
--- NOTE | 2021-06-17 13:26 | ED ---
General Adult HPI - General Chief complaint: Weakness Stated complaint: Lethargic Time Seen by Provider: 06/17/21 12:04 Source: patient, Caregiver Mode of arrival: ambulatory Limitations: altered mental status - History of Present Illness Initial comments: Patient is a 61-year-old male presenting with his caregiver from the foster home he resides at for evaluation of weakness. His caregiver states that over the last 2 days the patient has been noticeably weak when walking, the patient normally ambulates on his own without any assistance, he has noticed the patient swaying and requiring assistance when ambulating. He also states that the patient speaks more at baseline, the last 2 days the patient has been more reserved and "out of it". Caregiver denies any witnessed falls or head trauma. No use of blood thinners. Patient has not shown any indications of chest pain, shortness of breath, abdominal pain, nausea, vomiting, diarrhea, constipation, hematochezia, cough, hemoptysis, fever, chills, dysuria, hematuria, back or flank pain, vision or hearing changes, weakness on one side of the body, slurring speech. - Related Data Home Medications Medication Instructions Recorded Confirmed Desmopressin Acetate 0.4 mg PO HS@199907/13/15 06/17/21 Aspirin EC [Ecotrin Low Dose] 81 mg PO DAILY@69910/05/16 06/17/21 Lacosamide [Vimpat] 50 mg PO DAILY@69910/05/16 06/17/21 clonazePAM [KlonoPIN] 0.5 mg PO HS@199910/05/16 06/17/21 Escitalopram [Lexapro] 10 mg PO HS@199910/20/20 06/17/21 Iloperidone [Fanapt] 4 mg PO BID@699,199910/20/20 06/17/21 Phenytoin Chew [Dilantin Chew] 50 mg PO DAILY@159910/20/20 06/17/21 Phenytoin Sodium Extended 100 mg PO DAILY@69910/20/20 06/17/21 [Dilantin] Divalproex [Depakote] 1,000 mg PO TID@0700,1599,199911/25/20 06/17/21 Cholecalciferol (Vitamin D3) 125 mcg PO DAILY@69906/17/21 06/17/21 [Vitamin D3 (125 MCG = 5,000 IU)] Tamsulosin HCl [Flomax] 0.4 mg PO DAILY@0700 06/17/21 06/17/21 levETIRAcetam [Keppra] 250 mg PO BID@07,199906/17/21 06/17/21 Allergies Allergy/AdvReac Type Severity Reaction Status Date / Time No Known Allergies Allergy Verified 06/17/21 13:38 Review of Systems ROS Statement: Those systems with pertinent positive or pertinent negative responses have been documented in the HPI. ROS Other: All systems not noted in ROS Statement are negative. Past Medical History Past Medical History: Seizure Disorder Additional Past Medical History / Comment(s): epilepsy History of Any Multi-Drug Resistant Organisms: None Reported Past Surgical History: No Surgical Hx Reported Additional Past Surgical History / Comment(s): Only surgery known was plastic surgery due to ashley as a child. Past Anesthesia/Blood Transfusion Reactions: Unable to Obtain Past Psychological History: Depression, No Psychological Hx Reported Smoking Status: Current every day smoker Past Alcohol Use History: None Reported, Abuse, Daily Past Drug Use History: None Reported - Past Family History Father History Unknown: Yes Family Medical History: Unable to Obtain Mother History Unknown: Yes Family Medical History: Unable to Obtain General Exam Limitations: altered mental status General appearance: alert, in no apparent distress, lethargic Head exam: Present: atraumatic, normocephalic, normal inspection Eye exam: Present: normal appearance, EOMI. Absent: scleral icterus Neck exam: Present: normal inspection Respiratory exam: Present: normal lung sounds bilaterally. Absent: respiratory distress, wheezes, rales, rhonchi, stridor Cardiovascular Exam: Present: normal rhythm, bradycardia, normal heart sounds. Absent: systolic murmur, diastolic murmur, rubs, gallop, clicks GI/Abdominal exam: Present: soft, normal bowel sounds. Absent: distended, tenderness, guarding, rebound, rigid Extremities exam: Present: normal inspection, full ROM Neurological exam: Present: alert, altered, CN II-XII intact Expanded Cranial nerves: EOM's Intact: Normal, Tongue Deviation: Normal, Facial Sensation: Normal Upper motor neuron: Pronator Drift: Normal Eye Response: (4) open spontaneously Motor Response: (6) obeys commands Verbal Response: (5) oriented (Patient is slow to respond and uses minimal words, but he answers questions accurately) [place] Total: 15 Psychiatric exam: Present: flat affect Skin exam: Present: warm, dry, intact, normal color. Absent: rash Course Vital Signs 06/17/21 06/17/21 06/17/21 10:41 12:44 14:00 Temperature 98.5 F Pulse Rate 60 47 L 55 L Respiratory 20 18 16 Rate Blood Pressure 94/56 93/62 105/72 O2 Sat by Pulse 96 100 98 Oximetry - Reevaluation(s) Reevaluation #1: On reassessment patient is speaking more and has more fluid movements. On initial presentation patient was very minimally vocal and his extremities were very stiff. The nurse spoke with staff at his foster home who stated that the patient has also not been eating and drinking as of recent 06/17/21 16:11 Medical Decision Making - Medical Decision Making Patient is a 61-year-old male presenting with his caregiver for evaluation of generalized weakness. His caregiver states that over the last 2 days he has had difficulty ambulating and appears like he is going to fall over. Normally the patient ambulates at home with no difficulty. He also states that the patient seems "out of it". On exam the patient's extremities are very rigid. There are no focal neurological deficits. Extraocular motions are intact. Patient is able to follow commands. He is slow to answer questions and uses very little words, but he answers questions accurately and appropriately. No slurred speech or drooling. Lab work is remarkable for elevated creatinine of 1.5, this is consistent with previous values for him. Urine shows +1 ketones possibly indicating dehydration. Patient is mildly hypotensive with systolic pressure in the 90s and diastolic pressure in the 60s on arrival. Chest x-ray is negative. CT shows mild atrophy. No acute intracranial abnormality. No change compared to old exam. Cerebellar atrophy. Spondylitic hypertrophic degenerative disc changes in the inferior cervical spine. No significant disc space narrowing. No fracture. No change. Due to the sudden onset change in his baseline ambulation, patient will be admitted to observation. I spoke with Dr. Jeff mckenna who agreed to admit the patient. I spoke with neurologist device sales consultant Dr. Juárez who advised obtaining levels of his current seizure medications. Patient and caregiver were agreeable with this plan. - Lab Data Result diagrams: 06/17/21 10:53 06/17/21 14:08 Lab Results 06/17/21 06/17/21 06/17/21 Range/Units 10:53 10:53 10:53 WBC 5.9 (3.8-10.6) k/uL RBC 4.92 (4.30-5.90) m/uL Hgb 15.0 (13.0-17.5) gm/dL Hct 47.3 (39.0-53.0) % MCV 96.2 (80.0-100.0) fL MCH 30.5 (25.0-35.0) pg MCHC 31.7 (31.0-37.0) g/dL RDW 15.6 H (11.5-15.5) % Plt Count 88 L (150-450) k/uL MPV 9.0 Neutrophils % 75 % Lymphocytes % 9 % Monocytes % 12 % Eosinophils % 1 % Basophils % 1 % Neutrophils # 4.4 (1.3-7.7) k/uL Lymphocytes # 0.5 L (1.0-4.8) k/uL Monocytes # 0.7 (0-1.0) k/uL Eosinophils # 0.0 (0-0.7) k/uL Basophils # 0.1 (0-0.2) k/uL Manual Slide Review Performed PT 10.8 (9.0-12.0) sec INR 1.0 (<1.2) APTT 26.4 (22.0-30.0) sec Sodium 135 L (137-145) mmol/L Potassium 5.3 H (3.5-5.1) mmol/L Chloride 103 (98-107) mmol/L Carbon Dioxide 27 (22-30) mmol/L Anion Gap 5 mmol/L BUN 15 (9-20) mg/dL Creatinine 1.50 H (0.66-1.25) mg/dL Est GFR (CKD-EPI)AfAm 57 (>60 ml/min/1.73 sqM) Est GFR (CKD-EPI)NonAf 49 (>60 ml/min/1.73 sqM) Glucose 86 (74-99) mg/dL POC Glucose (mg/dL) (75-99) mg/dL POC Glu [employer] Operations Specialist ID Plasma Lactic Acid Yobany (0.7-2.0) mmol/L Calcium 8.6 (8.4-10.2) mg/dL Phosphorus (2.5-4.5) mg/dL Magnesium (1.6-2.3) mg/dL Total Bilirubin 0.5 (0.2-1.3) mg/dL AST 43 (17-59) U/L ALT 20 (4-49) U/L Alkaline Phosphatase 39 (38-126) U/L Troponin I (0.000-0.034) ng/mL Total Protein 6.5 (6.3-8.2) g/dL Albumin 3.5 (3.5-5.0) g/dL Urine Color Urine Appearance (Clear) Urine pH (5.0-8.0) Ur Specific [place] (1.001-1.035) Urine Protein (Negative) Urine Glucose (UA) (Negative) Urine Ketones (Negative) Urine Blood (Negative) Urine Nitrite (Negative) Urine Bilirubin (Negative) Urine Urobilinogen (<2.0) mg/dL Ur Leukocyte Esterase (Negative) 06/17/21 06/17/21 06/17/21 Range/Units 10:53 12:35 12:36 WBC (3.8-10.6) k/uL RBC (4.30-5.90) m/uL Hgb (13.0-17.5) gm/dL Hct (39.0-53.0) % MCV (80.0-100.0) fL MCH (25.0-35.0) pg MCHC (31.0-37.0) g/dL RDW (11.5-15.5) % Plt Count (150-450) k/uL MPV Neutrophils % % Lymphocytes % % Monocytes % % Eosinophils % % Basophils % % Neutrophils # (1.3-7.7) k/uL Lymphocytes # (1.0-4.8) k/uL Monocytes # (0-1.0) k/uL Eosinophils # (0-0.7) k/uL Basophils # (0-0.2) k/uL Manual Slide Review PT (9.0-12.0) sec INR (<1.2) APTT (22.0-30.0) sec Sodium (137-145) mmol/L Potassium (3.5-5.1) mmol/L Chloride (98-107) mmol/L Carbon Dioxide (22-30) mmol/L Anion Gap mmol/L BUN (9-20) mg/dL Creatinine (0.66-1.25) mg/dL Est GFR (CKD-EPI)AfAm (>60 ml/min/1.73 sqM) Est GFR (CKD-EPI)NonAf (>60 ml/min/1.73 sqM) Glucose (74-99) mg/dL POC Glucose (mg/dL) 83 (75-99) mg/dL POC Glu [employer] Operations Specialist ID Mulugeta Naylor Plasma Lactic Acid Yobany (0.7-2.0) mmol/L Calcium (8.4-10.2) mg/dL Phosphorus (2.5-4.5) mg/dL Magnesium (1.6-2.3) mg/dL Total Bilirubin (0.2-1.3) mg/dL AST (17-59) U/L ALT (4-49) U/L Alkaline Phosphatase (38-126) U/L Troponin I <0.012 (0.000-0.034) ng/mL Total Protein (6.3-8.2) g/dL Albumin (3.5-5.0) g/dL Urine Color Yellow Urine Appearance Clear (Clear) Urine pH 6.0 (5.0-8.0) Ur Specific [place] 1.018 (1.001-1.035) Urine Protein Negative (Negative) Urine Glucose (UA) Negative (Negative) Urine Ketones 1+ H (Negative) Urine Blood Negative (Negative) Urine Nitrite Negative (Negative) Urine Bilirubin Negative (Negative) Urine Urobilinogen <2.0 (<2.0) mg/dL Ur Leukocyte Esterase Negative (Negative) 06/17/21 06/17/21 Range/Units 14:08 14:08 WBC (3.8-10.6) k/uL RBC (4.30-5.90) m/uL Hgb (13.0-17.5) gm/dL Hct (39.0-53.0) % MCV (80.0-100.0) fL MCH (25.0-35.0) pg MCHC (31.0-37.0) g/dL RDW (11.5-15.5) % Plt Count (150-450) k/uL MPV Neutrophils % % Lymphocytes % % Monocytes % % Eosinophils % % Basophils % % Neutrophils # (1.3-7.7) k/uL Lymphocytes # (1.0-4.8) k/uL Monocytes # (0-1.0) k/uL Eosinophils # (0-0.7) k/uL Basophils # (0-0.2) k/uL Manual Slide Review PT (9.0-12.0) sec INR (<1.2) APTT (22.0-30.0) sec Sodium (137-145) mmol/L Potassium 4.7 (3.5-5.1) mmol/L Chloride (98-107) mmol/L Carbon Dioxide (22-30) mmol/L Anion Gap mmol/L BUN (9-20) mg/dL Creatinine (0.66-1.25) mg/dL Est GFR (CKD-EPI)AfAm (>60 ml/min/1.73 sqM) Est GFR (CKD-EPI)NonAf (>60 ml/min/1.73 sqM) Glucose (74-99) mg/dL POC Glucose (mg/dL) (75-99) mg/dL POC Glu [employer] Operations Specialist ID Plasma Lactic Acid Yob[place] 1.2 (0.7-2.0) mmol/L Calcium (8.4-10.2) mg/dL Phosphorus 3.8 (2.5-4.5) mg/dL Magnesium 1.9 (1.6-2.3) mg/dL Total Bilirubin (0.2-1.3) mg/dL AST (17-59) U/L ALT (4-49) U/L Alkaline Phosphatase (38-126) U/L Troponin I (0.000-0.034) ng/mL Total Protein (6.3-8.2) g/dL Albumin (3.5-5.0) g/dL Urine Color Urine Appearance (Clear) Urine pH (5.0-8.0) Ur Specific [place] (1.001-1.035) Urine Protein (Negative) Urine Glucose (UA) (Negative) Urine Ketones (Negative) Urine Blood (Negative) Urine Nitrite (Negative) Urine Bilirubin (Negative) Urine Urobilinogen (<2.0) mg/dL Ur Leukocyte Esterase (Negative) - EKG Data Rate: bradycardia EKG Comments: Sinus bradycardia with rate of 50. Occasional PACs. Possible left atrial enlargement. Borderline left axis deviation. FL interval 133. QRS duration 79. This EKG was also shown to interpreted by my attending Dr. Montez - Radiology Data Radiology results: report reviewed, image reviewed CT shows mild atrophy. No acute intracranial abnormality. No change compared to old exam. Cerebellar atrophy. Spondylitic hypertrophic degenerative disc changes in the inferior cervical spine. No significant disc space narrowing. No fracture. No change. Disposition Clinical Impression: Weakness Disposition: ADMITTED IP TO THIS [facility] Condition: Good Referrals: Amilcar Goel NPC [Primary Care Provider] - 1-2 days Time of Disposition: 15:11 Decision to Admit Reason: Admit from EC Decision Date: 06/17/21 Decision Time: 15:11
--- NOTE | 2021-06-17 13:44 | XR ---
EXAMINATION TYPE: XR chest 2V DATE OF EXAM: 06/17/2021 COMPARISON: 11/25/2020 HISTORY: Weakness TECHNIQUE: Frontal and lateral views of the chest are obtained. FINDINGS: There is no focal air space opacity, pleural effusion, or pneumothorax seen. There is mild cardiomegaly but no pulmonary vascular congestion or interstitial edema. The osseous structures IMPRESSION: Mild cardiomegaly without acute cardiopulmonary disease.
--- NOTE | 2021-06-17 14:16 | CT ---
EXAMINATION TYPE: CT brain cspine wo con DATE OF EXAM: 06/17/2021 COMPARISON: 11/25/2020 and 11/26/2020 HISTORY: Altered mental status CT DLP: 1324.5 mGycm Automated exposure control for dose reduction was used. There is minimal cerebral atrophy. There is no mass effect or midline shift. There is no sign of intr acranial hemorrhage. There is some cerebellar cortical atrophy. Calvarium is intact. There is normal aeration of the mastoid sinuses. The cervical vertebra have normal alignment. There is anterior hypertrophic spurring from C3 to C7. F acet joints are intact. IMPRESSION: Mild atrophy. No acute intracranial abnormality. No change compared to old exam. Cerebellar atrophy. Spondylotic hypertrophic degenerative disc changes in the inferior cervical spine. No significant dis c space narrowing. No fracture. No change.
[2021-06-17 14:26] LABS: Magnesium 1.9 mg/dL (1.6-2.3); Phosphorus 3.8 mg/dL (2.5-4.5); Potassium 4.7 mmol/L (3.5-5.1)
[2021-06-17] MEDS ORDERED: NALOXONE 0.4 MG/ML 1 ML VIAL IV PRN (16:07)
[2021-06-17] MEDS: SODIUM CHLORIDE 0.9% 1,000 ML IV SCH (16:11)
[2021-06-17] MEDS ORDERED: MAG HYDROX/AL HYDROX/SIMETH 30 ML CUP PO PRN (16:27)
[2021-06-17] MEDS ORDERED: ACETAMINOPHEN TAB 325 MG TAB PO PRN (16:27)
[2021-06-17] MEDS ORDERED: ONDANSETRON 4 MG/2 ML VIAL IVP PRN (16:27)
--- NOTE | 2021-06-17 17:00 | P.HPIM ---
History of Present Illness H&P Date: 06/17/21 Chief Complaint: Weakness Patient is a 61-year-old male with PMH of seizure disorder, depression that presents for generalized weakness. His caregiver states that over the last 2 days the patient has been noticeably weak when walking. The patient normally ambulates on his own without any assistance, he has noticed the patient swaying and requiring assistance when ambulating. He also states that the patient speaks more at baseline, the last 2 days the patient has been more reserved and "out of it". Caregiver denies any witnessed falls or head trauma. Patient denies any headache, lower extremity edema, nausea vomiting, fever chills, cough, chest pain, shortness of breath, palpitations, changes in urination or bowel habits. No changes in appetite or weight. Patient denies any numbness/weakness/tingling of dictation my days. No slurred speech. In the ED, vital signs are stable. CBC showed a platelet count of 88. Coagulation profile negative. CMP showed sodium of 135, potassium of 5.3, creatinine 1.5. Magnesium was 1.9. Lactic acid negative. Troponin was less than 0.012 with EKG showing no ST elevation. Patient is admitted under observation status for generalized weakness, neurology consultation and PTOT evaluation. Review of systems was performed and was negative except what is mentioned above. General: [non toxic], [no distress], [appears at stated age] Derm: [warm], [dry] Head: [atraumatic], [normocephalic], [symmetric] Eyes: [EOMI], [no lid lag], [anicteric sclera] Mouth: [no lip lesion], [mucus membranes moist] Cardiovascular: [S1S2 reg], [no murmur], [positive DP pulse bilateral], Lungs: [CTA bilateral], [no rhonchi, no rales] , [no accessory muscle use] Abdominal: [soft], [ nontender to palpation], [no guarding], [no appreciable organomegaly] Ext: [no gross muscle atrophy], [no edema], [no contractures] Neuro: [ CN II-XI grossly intact], [no focal neuro deficits] Psych: [Alert and Oriented x 2], [slow to respond but appropriate] #Generalized weakness and debility #Hyperkalemia #Acute kidney injury #Hyponatremia Chronic conditions: Seizure disorder, depression Patient presents with generalized weakness and debility. He has no FND on physical exam. 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 Low concerns for stroke. PT and OT will be consulted to work with this patient. Neurology has been consulted for further management of this patient. He will be placed on Fall precautions and neurochecks. Keppra and Dilantin levels have been ordered. Patient's hyperkalemia is within normal on repeat. BMP will be repeated tomorrow morning. Patient's creatinine 1.5. He'll be started on normal saline at 75 mL per hour. Nephrotoxins will be avoided. BMP will be repeated tomorrow morning. Hyponatremia likely due to dehydration. Continue overnight IV hydration. BMP will be repeated tomorrow morning. Restart phenytoin, Keppra, Vimpat and Depakote for history of seizures. Restart Lexapro and Klonopin for history of depression and anxiety. Restart Flomax for BPH. DVT prophylaxis: [Lovenox] Discussed with: [Patient] Anticipated discharge: [1-2 days] Anticipated discharge place: [[facility]] A total of [45] minutes was spent on the care of this complex patient more than 50% of the time was spent in counseling and care coordination. Patient will be placed FULL CODE. Past Medical History Past Medical History: Seizure Disorder Additional Past Medical History / Comment(s): epilepsy History of Any Multi-Drug Resistant Organisms: None Reported Past Surgical History: No Surgical Hx Reported Additional Past Surgical History / Comment(s): Only surgery known was plastic surgery due to ashley as a child. Past Anesthesia/Blood Transfusion Reactions: Unable to Obtain Past Psychological History: Depression, No Psychological Hx Reported Smoking Status: Current every day smoker Past Alcohol Use History: None Reported, Abuse, Daily Past Drug Use History: None Reported - Past Family History Father History Unknown: Yes Family Medical History: Unable to Obtain Mother History Unknown: Yes Family Medical History: Unable to Obtain Medications and Allergies Home Medications Medication Instructions Recorded Confirmed Type Desmopressin Acetate 0.4 mg PO HS@07/12/06/17/21 History Aspirin EC [Ecotrin Low Dose] 81 mg PO DAILY@69910/05/16 06/17/21 History Lacosamide [Vimpat] 50 mg PO DAILY@69910/05/16 06/17/21 History clonazePAM [KlonoPIN] 0.5 mg PO HS@199910/05/16 06/17/21 History Escitalopram [Lexapro] 10 mg PO HS@199910/20/20 06/17/21 History Iloperidone [Fanapt] 4 mg PO BID@699,199910/20/20 06/17/21 History Phenytoin Chew [Dilantin Chew] 50 mg PO DAILY@159910/20/20 06/17/21 History Phenytoin Sodium Extended 100 mg PO DAILY@69910/20/20 06/17/21 History [Dilantin] Divalproex [Depakote] 1,000 mg PO TID@699,1599,199911/25/20 06/17/21 History Cholecalciferol (Vitamin D3) 125 mcg PO DAILY@69906/17/21 06/17/21 History [Vitamin D3 (125 MCG = 5,000 IU)] Tamsulosin HCl [Flomax] 0.4 mg PO DAILY@69906/17/21 06/17/21 History levETIRAcetam [Keppra] 250 mg PO BID@699,199906/17/21 06/17/21 History Allergies Allergy/AdvReac Type Severity Reaction Status Date / Time No Known Allergies Allergy Verified 06/17/21 13:38 Physical Exam Vitals: Vital Signs Temp Pulse Resp BP Pulse Ox 06/17/21 14:00 55 L 16 105/72 98 06/17/21 12:44 47 L 18 93/62 100 06/17/21 10:41 98.5 F 60 20 94/56 96 Intake and Output 06/17/21 06/17/21 06/17/21 06:59 14:59 22:59 Output Total 150 Balance -150 Output: Urine 150 Straight 150 Other: Weight 61.235 kg Results CBC & Chem 7: 06/17/21 10:53 06/17/21 14:08 Labs: Abnormal Lab Results - Last 24 Hours (Table) 06/17/21 06/17/21 06/17/21 Range/Units 10:53 10:53 12:36 RDW 15.6 H (11.5-15.5) % Plt Count 88 L (150-450) k/uL Lymphocytes # 0.5 L (1.0-4.8) k/uL Sodium 135 L (137-145) mmol/L Potassium 5.3 H (3.5-5.1) mmol/L Creatinine 1.50 H (0.66-1.25) mg/dL Urine Ketones 1+ H (Negative)
[2021-06-17] MEDS: ESCITALOPRAM 10 MG TAB PO SCH (19:50)
[2021-06-17] MEDS: DESMOPRESSIN 0.2 MG TAB PO SCH (19:50)
[2021-06-17] MEDS: clonazePAM 0.5 MG TAB PO SCH (19:50)
[2021-06-17] MEDS: DIVALPROEX 500 MG TABLET.DR PO SCH (19:50)
[2021-06-17] MEDS: levETIRAcetam 250 MG TAB PO SCH (19:50)
[2021-06-17] MEDS: ILOPERIDONE 4 MG PO SCH (19:51)
[2021-06-18] MEDS: SODIUM CHLORIDE 0.9% 1,000 ML IV SCH ×2 (03:17→15:10)
[2021-06-18] MEDS: TAMSULOSIN 0.4 MG CAP.ER.24H PO SCH (09:04)
[2021-06-18] MEDS: CHOLECALCIFEROL 125 MCG (5000 IU) TABLET PO SCH (09:04)
[2021-06-18] MEDS: ASPIRIN 81 MG PO SCH (09:04)
[2021-06-18] MEDS: ENOXAPARIN 40 MG/0.4 ML SYRINGE SQ SCH (09:05)
[2021-06-18 09:17] LABS: ALT 16 U/L (10-49); AST 31 U/L (14-35); African American GFR (CKD) 79.4 (60.0-200.0); Albumin 3.1 g/dL (3.8-4.9); Albumin/Globulin Ratio 1.66 (1.60-3.17); Alkaline Phosphatase 40 U/L (41-126); BUN/Creat Ratio 18.25 Ratio (12.00-20.00); Blood Urea Nitrogen 20.8 mg/dL (9.0-27.0); Calcium 7.9 mg/dL (8.7-10.3); Chloride 105 mmol/L (96-109); Globulin 1.8 g/dL (1.6-3.3); Glucose 81 mg/dL (70-110); Non-African American GFR(CKD) 68.5 (60.0-200.0); Phosphorus 3.3 mg/dL (2.4-5.1); Potassium 5.3 mmol/L (3.5-5.5); Sodium 137 mmol/L (135-145); Total Bilirubin <0.15 mg/dL (0.30-1.20); Total Protein 4.9 g/dL (6.2-8.2)
[2021-06-18 09:58] LABS: Basophils # (A) 0.02 X 10*3/uL (0.00-0.10); Basophils % (A) 0.6 %; Eosinophils # (A) 0.04 X 10*3/uL (0.04-0.35); Eosinophils % (A) 1.2 %; HCT 42.3 % (39.6-50.0); HGB 13.9 g/dL (13.0-17.0); Immature Grans, Automated 0.3 %; Lymphocytes # (A) 1.33 X 10*3/uL (0.90-5.00); Lymphocytes % (A) 39.8 %; MCH 30.6 pg (27.0-32.0); MCHC 32.9 g/dL (32.0-37.0); MCV 93.2 fL (80.0-97.0); Mean Platelet Volume 11.7 fL (9.5-12.2); Monocytes # (A) 0.49 X 10*3/uL (0.20-1.00); Monocytes % (A) 14.7 %; NRBC Per 100 WBC 0 /100 WBCS (0.0-0.0); Neutrophils # (A) 1.45 X 10*3/uL (1.80-7.70); Neutrophils % (A) 43.4 %; Platelet Count 91 X 10*3/uL (140-440); RBC 4.54 X 10*6/uL (4.40-5.60); RDW 15.9 % (11.5-14.5); WBC 3.34 X 10*3/uL (4.50-10.00)
--- NOTE | 2021-06-18 13:07 | P.CNNES ---
History of Present Illness Consult date: 06/18/21 Requesting physician: Yeni Valladares Reason for Consult: new onset weakness and difficulty ambulating History of Present Illness: Patient is a 61-year-old male came to the hospital yesterday at 10:36 AM for unclear reasons. Patient is a poor historian. Patient says that he was brought to the hospital by Britney, the man who runs the house, brought him here. He thinks that he may have slightly passed out. As per electronic records from ED, patient lives at foster home. He has been complaining of generalized weakness, particularly when walking. Patient normally ambulates on his own, without any assistance. He was noticed to be swaying and requiring assistance with ambulation. It was felt that he is more reserved and "out of it". No witnessed falls or head trauma. Patient not on blood thinners. He did not complain of any chest pain shortness of breath abdominal pain nausea vomiting diarrhea constipation cough or hemoptysis, fever or chills. No visual problems. He does have hearing issues from past. Patient does tell me that he has not had any seizure for last 5 years. Patient says that he lives with [facility]. He also tells me that he follows up with Dr. Rodriges at the [facility]. Vital signs on arrival blood pressure 94/56, pulse rate 60, temperature 98.5. Blood pressure has been running on the lower side, with most recent 91/53. Blood test shows normal CBC, PT/PTT, sodium 135 potassium 5.3, both of which are normal now. BUN 15 creatinine 1.50. Hepatic panel is normal. Troponins negati ve. UA negative, Dilantin level is 3.5. CT head showed mild atrophy, no acute intracranial abnormality. Cerebellar atrophy. I personally reviewed CT and agree with the findings. CT of the cervical spine showed spondylotic hypertrophic degenerative disc changes in the inferior cervical spine. No significant disc space narrowing. Patient has been seen by Dr. Bryce Mleara on 11/26/2020 for worsening of balance increased forgetfulness of 2-3 weeks duration. Was felt to be related to polypharmacy versus mild component of metabolic encephalopathy. Patient has underlying cognitive impairment/dementia. Also has history of epilepsy, acute kidney injury prior history of alcoholism and tobacco use. Patient had an MRI of the brain on 11/26/2020 which revealed cerebral atrophy and hydrocephalus. No acute intracranial abnormality. I personally reviewed MRI, which does not reveal any hydrocephalus. Home medications listed include clonazepam 0.5 mg at bedtime, Vimpat 50 mg daily, aspirin 81 mg, Dilantin 100 mg in the morning and 50 mg in the evening, Lexapro 10 mg, Depakote 1000 mg 3 times a day Flomax, vitamin D and Keppra 250 mg twice a day. Review of Systems Patient states he does have some headache. Denies any chest pain, abdominal pain, nausea vomiting diarrhea, fever or chills. He does feel weak generalized, lethargic. Balance is off. Another 14 point review of systems reviewed are unremarkable. Past Medical History Past Medical History: Seizure Disorder Additional Past Medical History / Comment(s): epilepsy History of Any Multi-Drug Resistant Organisms: None Reported Past Surgical History: No Surgical Hx Reported Additional Past Surgical History / Comment(s): Only surgery known was plastic surgery due to ashley as a child. Past Anesthesia/Blood Transfusion Reactions: Unable to Obtain Past Psychological History: Depression, No Psychological Hx Reported Additional Psychological History / Comment(s): Pt resides at [facility] home. He has lived there for 6 yrs. He is able to feed himself and needs assist with other ADLS. He walks without device-gait is slow. He loves doing word searches. He likes to eat meat and have one coke each night. Smoking Status: Current every day smoker Past Alcohol Use History: None Reported, Abuse, Daily Additional Past Alcohol Use History / Comment(s): Pt is a 10 cigarette a day smoker. He has hx of alcohol abuse. H[employer] Java Developer states she does not know last time pt drank alcohol but knows he has had none for the past 6 yrs while he has lived with her. Past Drug Use History: None Reported - Past Family History Father History Unknown: Yes Family Medical History: Unable to Obtain Mother History Unknown: Yes Family Medical History: Unable to Obtain Medications and Allergies Home Medications Medication Instructions Recorded Confirmed Type Desmopressin Acetate 0.4 mg PO HS@199907/13/15 06/17/21 History Aspirin EC [Ecotrin Low Dose] 81 mg PO DAILY@69910/05/16 06/17/21 History Lacosamide [Vimpat] 50 mg PO DAILY@69910/05/16 06/17/21 History clonazePAM [KlonoPIN] 0.5 mg PO HS@199910/05/16 06/17/21 History Escitalopram [Lexapro] 10 mg PO HS@199910/20/20 06/17/21 History Iloperidone [Fanapt] 4 mg PO BID@10/20/20 06/17/21 History Phenytoin Chew [Dilantin Chew] 50 mg PO DAILY@159910/20/20 06/17/21 History Phenytoin Sodium Extended 100 mg PO DAILY@69910/20/20 06/17/21 History [Dilantin] Divalproex [Depakote] 1,000 mg PO TID@699,1599,199911/25/20 06/17/21 History Cholecalciferol (Vitamin D3) 125 mcg PO DAILY@69906/17/21 06/17/21 History [Vitamin D3 (125 MCG = 5,000 IU)] Tamsulosin HCl [Flomax] 0.4 mg PO DAILY@69906/17/21 06/17/21 History levETIRAcetam [Keppra] 250 mg PO BID@06/17/21 06/17/21 History Allergies Allergy/AdvReac Type Severity Reaction Status Date / Time No Known Allergies Allergy Verified 06/17/21 13:38 Physical Examination - Vital Signs Vital Signs: Vital Signs Temp Pulse Pulse Resp BP BP Pulse Ox 06/18/21 07:31 48 L 91/53 97 06/18/21 05:00 97.6 F 44 L 16 103/56 99 06/17/21 20:55 54 L 06/17/21 20:15 16 06/17/21 20:00 98 F 46 L 16 96/53 94 L 06/17/21 18:17 98.0 F 55 L 16 109/63 94 L 06/17/21 17:03 56 L 18 125/66 98 06/17/21 14:00 55 L 16 105/72 98 06/17/21 12:44 47 L 18 93/62 100 06/17/21 10:41 98.5 F 60 20 94/56 96 Intake and Output 06/17/21 06/18/21 06/18/21 22:59 06:59 14:59 Intake Total 180 1200 Output Total 200 Balance 180 1200 -200 Intake: Intake, IV Titration 900 Amount Sodium Chloride 0.9% 1, 900 000 ml @ 75 mls/hr IV . [id number] [facility] Rx#:[id number] Oral 180 300 Output: Urine 200 Other: Voiding Method Toilet Urinal # Voids 3 # Bowel Movements 1 Weight 61.235 kg Patient is a late middle aged Afro-Maltese male, who appears older than his stated age. He is somewhat cachectic, with very slow mentation. Patient is alert awake, but with very slow mentation. He states is the month of June and the year is 2001. He could not tell the current month or the year. Speech and language functions are normal. No obvious aphasia or dysarthria. Attention, concentration and fund of knowledge is quite limited. Patient would stay quiet, and then would start speaking, often tangential. Sometimes repeats. Lot of time would not answer to questions. Cooperation of examination was very difficult. On cranial nerve examination, pupils are equal, round and reacting to light, visual maldonado appears full on confrontation, extraocular muscles are intact with no nystagmus. Face is symmetric, tongue protrudes to the midline. Palatal elevation and sensation normal, hearing is moderately decreased and shoulder shrug normal, facial sensation normal. On muscle strength testing, there is no pronator drift and the strength is normal in arms distally and proximally. In the lower limbs hip flexion is 5 to 5-bilaterally. Knee extension is 5-, ankle dorsiflexion patient wiggles foot okay, but would not cooperate for ankle dorsiflexion. Uncertain if there is some weakness of the ankle dorsiflexion. Plantarflexion appears normal. Deep tendon reflexes are (right/left) biceps 1/2, weight radialis trace/1, knee 1/1 ankle was/100 plantars are flat bilaterally. Sensory to touch is equal with no neglect. Cerebellar function showed no ataxia for [id number] testing. Patient was extremely slow to perform the task. Tone appears increased in both arms and bulk of muscles normal. Gait deferred. On general examination, there is no carotid bruit or murmur, S1-S2 audible. Abdomen is soft nontender. No organomegaly, bowel sounds present. Chest is clear to auscultation. Peripheral pulses are present. Patient has mild debora pheral edema. Results - Laboratory Findings CBC and BMP: 06/18/21 05:32 06/18/21 05:32 Abnormal Lab Findings: Abnormal Labs 06/17/21 06/17/21 06/17/21 10:53 10:53 12:36 RDW 15.6 H Plt Count 88 L Lymphocytes # 0.5 L Sodium 135 L Potassium 5.3 H Anion Gap Creatinine 1.50 H Calcium Total Bilirubin Alkaline Phosphatase Total Protein Albumin Urine Ketones 1+ H 06/18/21 05:32 RDW Plt Count Lymphocytes # Sodium Potassium Anion Gap 6.40 L Creatinine Calcium 7.9 L Total Bilirubin <0.15 L Alkaline Phosphatase 40 L Total Protein 4.9 L Albumin 3.1 L Urine Ketones Assessment and Plan Assessment: * Generalized weakness, lethargy, likely because of hypotension, bradycardia. Neurological examination is nonfocal. * Seizure disorder, well controlled. No seizure for last 5 years. * Reported history of alcoholism, in remission * Tobacco use Plan: * Patient's weakness, lethargy, and syncopal spell likely due to hypotension, bradycardia. * Cardiology has been consulted. * Telemetry monitoring. * Check B12, folate, MMA, B6, B1 and TSH. Patient's last hemoglobin A1c 5.2 on 11/26/2020. * Empirically start thiamine because of possible malnutrition. * Patient's seizures are well controlled. Continue current seizure medications. May follow up with his neurologist Dr. Hewitt's after discharge. * PT OT, evaluate gait. * I tried to contact both numbers listed for patient's guardian, but not able to reach a live person. * Dr. Bryce Melara Will resume neurology service in the morning. Thank you for the consult.
[2021-06-18] MEDS: DIVALPROEX 500 MG TABLET.DR PO SCH ×3 (13:28→20:45)
[2021-06-18] MEDS: ILOPERIDONE 4 MG PO SCH ×2 (13:28→20:42)
[2021-06-18] MEDS: levETIRAcetam 250 MG TAB PO SCH ×2 (13:29→20:45)
[2021-06-18] MEDS: PHENYTOIN SODIUM EXTENDED 100 MG CAP PO SCH (13:29)
[2021-06-18] MEDS: LACOSAMIDE 50 MG TABLET PO SCH (13:29)
--- NOTE | 2021-06-18 13:58 | P.PN ---
Subjective Progress Note Date: 06/18/21 Principal diagnosis: Weakness Patient was seen and examined. No acute events overnight. Telemetry shows heart rate that dips into the high 30s. Patient continues to report generalized weakness. He denies any chest pain, shortness breath or palpitations. No nausea or vomiting. No fever or chills. No lightheadedness. Objective - Vital Signs Vital signs: Vital Signs Temp 97.6 F 06/18/21 05:00 Pulse 48 L 06/18/21 07:31 Resp 16 06/18/21 05:00 BP 91/53 06/18/21 07:31 Pulse Ox 97 06/18/21 07:31 Intake & Output 06/17/21 06/18/21 06/18/21 18:59 06:59 18:59 Intake Total 180 1200 Output Total 150 200 Balance 30 1200 -200 Weight 61.235 kg Intake: Intake, IV Titration 900 Amount Sodium Chloride 0.9% 1, 900 000 ml @ 75 mls/hr IV . [id number] [facility] Rx#:[id number] Oral 180 300 Output: Urine 150 200 Straight 150 Other: Voiding Method Toilet Urinal # Voids 3 # Bowel Movements 1 - Exam General: [non toxic], [no distress], [appears at stated age] Derm: [warm], [dry] Head: [atraumatic], [normocephalic], [symmetric] Eyes: [EOMI], [no lid lag], [anicteric sclera] Mouth: [no lip lesion], [mucus membranes moist] Cardiovascular: [Bradycardic], [no murmur] Lungs: [CTA bilateral], [no rhonchi, no rales] , [no accessory muscle use] Abdominal: [soft], [ nontender to palpation], [no guarding], [no appreciable organomegaly] Ext: [no gross muscle atrophy], [no edema], [no contractures] Neuro: [no focal neuro deficits] Psych: [Alert and Oriented x 2], [slow to respond but appropriate] - Labs CBC & Chem 7: 06/18/21 05:32 06/18/21 05:32 Labs: Abnormal Lab Results - Last 24 Hours (Table) 06/18/21 06/18/21 Range/Units 05:32 05:32 WBC 3.34 L (4.50-10.00) X 10*3/uL RDW 15.9 H (11.5-14.5) % Plt Count 91 L (140-440) X 10*3/uL Plt Count Comment DECREASED A Neutrophils # 1.45 L (1.80-7.70) X 10*3/uL Anion Gap 6.40 L (10.00-18.00) mmol/L Calcium 7.9 L (8.7-10.3) mg/dL Total Bilirubin <0.15 L (0.30-1.20) mg/dL Alkaline Phosphatase 40 L (41-126) U/L Total Protein 4.9 L (6.2-8.2) g/dL Albumin 3.1 L (3.8-4.9) g/dL Assessment and Plan Assessment: #Generalized weakness and debility #Bradycardia #Thrombocytopenia Resolved: HypoNa, HypoK, RAHUL Chronic conditions: Seizure disorder, depression Patient presents with generalized weakness and debility. He has no FND on physical exam. 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 Low concerns for stroke. PT and OT will be consulted to work with this patient. Neurology consulted, discussed with Dr. Sellers, no further neurological workup. He will be placed on Fall precautions and neurochecks. Keppra and Dilantin levels within normal limits. Telemetry shows heart rate as low as 30s. Likely contributing to his generalized weakness. Echocardiogram has been ordered. Cardiology has been consulted to evaluate this patient. Restart phenytoin, Keppra, Vimpat and Depakote for history of seizures. Restart Lexapro and Klonopin for history of depression and anxiety. Restart Flomax for BPH. DVT prophylaxis: [Lovenox] Discussed with: [Patient] Anticipated discharge: [1-2 days] Anticipated discharge place: [[facility]] A total of [45] minutes was spent on the care of this complex patient more than 50% of the time was spent in counseling and care coordination. Patient will be placed FULL CODE. Patient cleared by Neurology. Telemetry shows heart rate in the 30s. Echocardiogram ordered today, unavailable. Cardiology consulted. He is pending clinical improvement. Anticipate DC tomorrow.
[2021-06-18] MEDS: THIAMINE 100 MG TAB PO SCH (15:07)
[2021-06-18] MEDS: PHENYTOIN 50 MG CHEWABLE PO SCH (15:08)
[2021-06-18 20:24] VITALS: PULSE 47; RESP 18; TEMP 97.7
[2021-06-18] MEDS: clonazePAM 0.5 MG TAB PO SCH (20:45)
[2021-06-18] MEDS: DESMOPRESSIN 0.2 MG TAB PO SCH (20:46)
[2021-06-18] MEDS: ESCITALOPRAM 10 MG TAB PO SCH (21:38)
[2021-06-19] MEDS: SODIUM CHLORIDE 0.9% 1,000 ML IV SCH (04:24)
[2021-06-19 04:26] VITALS: BP 114/56
[2021-06-19] MEDS: TAMSULOSIN 0.4 MG CAP.ER.24H PO SCH (07:15)
[2021-06-19] MEDS: ASPIRIN 81 MG PO SCH (07:15)
[2021-06-19] MEDS: levETIRAcetam 250 MG TAB PO SCH (07:15)
[2021-06-19] MEDS: CHOLECALCIFEROL 125 MCG (5000 IU) TABLET PO SCH (07:15)
[2021-06-19] MEDS: ILOPERIDONE 4 MG PO SCH (08:24)
[2021-06-19] MEDS: DIVALPROEX 500 MG TABLET.DR PO SCH ×2 (08:24→16:21)
[2021-06-19] MEDS: THIAMINE 100 MG TAB PO SCH (08:25)
[2021-06-19] MEDS: PHENYTOIN SODIUM EXTENDED 100 MG CAP PO SCH (08:25)
[2021-06-19] MEDS: ENOXAPARIN 40 MG/0.4 ML SYRINGE SQ SCH (08:25)
[2021-06-19] MEDS: LACOSAMIDE 50 MG TABLET PO SCH (08:25)
--- NOTE | 2021-06-19 09:41 | P.CRDCN ---
History of Present Illness Consult date: 06/19/21 History of present illness: HISTORY OF PRESENT ILLNESS: This is a 61-year-old male with a past medical history significant for bradycardia, nicotine dependence, seizure disorder, and cognitive impairment. Patient follows in the office with Dr. Morrison but has not been seen since January 2019. We have been asked to see the patient in consultation for bradycardia. Patient examined at the bedside. Patient was admitted to the hospital secondary to generalized weakness and debility. There is no evidence of syncope. Patient denies any chest pain or pressure. He denies shortness of breath. Patient's heart rate is currently running in the 50s. At times his heart rate dips into the 30s and 40s. He denies any dizziness or lightheadedness. He is not on any AV oscar blocking agents. It is noted that when the patient saw Dr. Pabon in 2018 and EKG was performed at that time with a heart rate of 50. * EKG reveals sinus bradycardia with no signs of acute ischemia * Chest xray mild cardio megaly without acute cardiopulmonary disease * Laboratory data: WBC 3.34. Hemoglobin 13.9. Platelet count 91. Sodium 137. Potassium 5.3. BUN 20. Creatinine 1.1. * Current home cardiac medications include aspirin 81 mg daily * Most recent echocardiogram obtained in February 2019 revealed ejection fraction 55%, mild MR, mild TR * Patient underwent Lexiscan stress test in February 2019 was negative for ischemia REVIEW OF SYSTEMS: At the time of my exam: CONSTITUTIONAL: Denies fever or chills. HEENT: Denies blurred vision, vision changes, or eye pain. Denies hemoptysis CARDIOVASCULAR: Denies chest pain. Denies orthopnea. Denies PND. Denies palpitations RESPIRATORY: Denies shortness of breath. GASTROINTESTINAL: Denies abdominal pain. Denies nausea or vomiting. HEMATOLOGIC: Denies bleeding disorders. GENITOURINARY: Denies any blood in urine. SKIN: Denies pruitis. Denies rash. PHYSICAL EXAM: VITAL SIGNS: Reviewed. GENERAL: Well-developed in no acute distress. HEENT: Head is normocephalic. Pupils are equal, round. Sclerae anicteric. Mucous membranes of the mouth are moist. Neck supple. No JVD or thyromegaly LUNGS: Respirations even and unlabored. Lungs essentially clear to auscultation bilaterally. HEART: Regular rate and rhythm. S1 and S2 heard. ABDOMEN: Soft. Nondistended. Nontender. EXTREMITIES: Normal range of motion. No clubbing or cyanosis. Peripheral pulses intact. No lower extremity edema NEUROLOGIC: Awake and alert. Oriented x 3. ASSESSMENT: Generalized weakness and debility Bradycardia, appears to be asymptomatic Seizure disorder Cognitive impairment History of alcohol abuse Nicotine dependence PLAN: Etiology of patient's bradycardia is unknown at this time Continue telemetry monitoring Avoid any AV oscar blocking agents Check TSH Obtain 2-D echo to assess cardiac structure and function Further recommendations pending patient's course Nurse practitioner note has been reviewed by physician. Signing provider agrees with the documented findings, assessment, and plan of care. Past Medical History Past Medical History: Seizure Disorder Additional Past Medical History / Comment(s): epilepsy History of Any Multi-Drug Resistant Organisms: None Reported Past Surgical History: No Surgical Hx Reported Additional Past Surgical History / Comment(s): Only surgery known was plastic surgery due to ashley as a child. Past Anesthesia/Blood Transfusion Reactions: Unable to Obtain Past Psychological History: Depression, No Psychological Hx Reported Additional Psychological History / Comment(s): Pt resides at [facility] home. He has lived there for 6 yrs. He is able to feed himself and needs assist with other ADLS. He walks without device-gait is slow. He loves doing word searches. He likes to eat meat and have one coke each night. Smoking Status: Current every day smoker Past Alcohol Use History: None Reported, Abuse, Daily Additional Past Alcohol Use History / Comment(s): Pt is a 10 cigarette a day smoker. He has hx of alcohol abuse. Custom Miller states she does not know last time pt drank alcohol but knows he has had none for the past 6 yrs while he has lived with her. Past Drug Use History: None Reported - Past Family History Father History Unknown: Yes Family Medical History: Unable to Obtain Mother History Unknown: Yes Family Medical History: Unable to Obtain Medications and Allergies Home Medications Medication Instructions Recorded Confirmed Type Desmopressin Acetate 0.4 mg PO HS@199907/13/15 06/17/21 History Aspirin EC [Ecotrin Low Dose] 81 mg PO DAILY@69910/05/16 06/17/21 History Lacosamide [Vimpat] 50 mg PO DAILY@69910/05/16 06/17/21 History clonazePAM [KlonoPIN] 0.5 mg PO HS@199910/05/16 06/17/21 History Escitalopram [Lexapro] 10 mg PO HS@199910/20/20 06/17/21 History Iloperidone [Fanapt] 4 mg PO BID@699,199910/20/20 06/17/21 History Phenytoin Chew [Dilantin Chew] 50 mg PO DAILY@159910/20/20 06/17/21 History Phenytoin Sodium Extended 100 mg PO DAILY@69910/20/20 06/17/21 History [Dilantin] Divalproex [Depakote] 1,000 mg PO TID@699,1599,199911/25/20 06/17/21 History Cholecalciferol (Vitamin D3) 125 mcg PO DAILY@69906/17/21 06/17/21 History [Vitamin D3 (125 MCG = 5,000 IU)] Tamsulosin HCl [Flomax] 0.4 mg PO DAILY@69906/17/21 06/17/21 History levETIRAcetam [Keppra] 250 mg PO BID@699,199906/17/21 06/17/21 History Allergies Allergy/AdvReac Type Severity Reaction Status Date / Time No Known Allergies Allergy Verified 06/17/21 13:38 Physical Exam Vitals: Vital Signs Temp Pulse Resp BP Pulse Ox 06/19/21 04:25 97.7 F 47 L 18 114/56 100 06/18/21 20:23 97.7 F 47 L 18 109/54 98 06/18/21 20:10 18 06/18/21 13:00 98.0 F 52 L 16 91/45 96 Intake and Output 06/18/21 06/19/21 06/19/21 22:59 06:59 14:59 Intake Total 1500 Balance 1500 Intake: Intake, IV Titration 900 Amount Sodium Chloride 0.9% 1, 900 000 ml @ 75 mls/hr IV . [id number] [facility] Rx#:[id number] Oral 600 Other: Voiding Method Toilet Urinal # Voids 4 # Bowel Movements 1 Results 06/18/21 05:32 06/18/21 05:32 CBC 06/18/21 Range/Units 05:32 WBC 3.34 L (4.50-10.00) X 10*3/uL RBC 4.54 (4.40-5.60) X 10*6/uL Hgb 13.9 (13.0-17.0) g/dL Hct 42.3 (39.6-50.0) % Plt Count 91 L (140-440) X 10*3/uL Current Medications Generic Name Dose Route Start Last Admin Trade Name Freq PRN Reason Stop Dose Admin Acetaminophen 650 mg 06/17/21 16:27 Acetaminophen Tab 325 Mg Tab PO Q6HR PRN Mild Pain or Fever > 100.5 Al Hydroxide/Mg Hydroxide 15 ml 06/17/21 16:27 Mag Hydrox/Al Hydrox/Simeth 30 Ml Cup PO Q6HR PRN Indigestion Aspirin 81 mg 06/18/21 07:00 06/19/21 07:15 Aspirin 81 Mg PO 81 mg DAILY@07 ANTHONY Administration Cholecalciferol 125 mcg 06/18/21 07:00 06/19/21 07:15 Cholecalciferol 125 Mcg (5000 Iu) Tablet PO 125 mcg DAILY@07 ANTHONY Administration Clonazepam 0.5 mg 06/17/21 20:00 06/18/21 20:45 Clonazepam 0.5 Mg Tab PO 0.5 mg HS@1999 ANTHONY Administration Desmopressin Acetate 0.4 mg 06/17/21 20:00 06/18/21 20:46 Desmopressin 0.2 Mg Tab PO 0.4 mg HS@1999 ANTHONY Administration Divalproex Sodium 1,000 mg 06/17/21 20:00 06/19/21 08:24 Divalproex 500 Mg Tablet.Dr PO 1,000 mg TID@699,1599,1999 ANTHONY Administration Enoxaparin Sodium 40 mg 06/18/21 09:00 06/19/21 08:25 Enoxaparin 40 Mg/0.4 Ml Syringe SQ 40 mg DAILY ANTHONY Administration Escitalopram Oxalate 10 mg 06/17/21 20:00 06/18/21 21:38 Escitalopram 10 Mg Tab PO 10 mg HS@1999 ANTHONY Administration Sodium Chloride 1,000 mls @ 75 mls/hr 06/17/21 14:30 06/19/21 04:24 Saline 0.9% IV 75 mls/hr .[id number] ANTHONY Administration Lacosamide 50 mg 06/18/21 07:00 06/19/21 08:25 Lacosamide 50 Mg Tablet PO 50 mg DAILY@0700 [facility] Administration Levetiracetam 250 mg 06/17/21 20:00 06/19/21 07:15 Levetiracetam 250 Mg Tab PO 250 mg BID@ [facility] Administration Naloxone HCl 0.2 mg 06/17/21 16:07 Naloxone 0.4 Mg/Ml 1 Ml Vial IV Q2M PRN Opioid Reversal Iloperidone [Fanapt] 4 mg 06/17/21 20:00 06/19/21 08:24 4 Mg Tablet PO Not Given BID@ [facility] Ondansetron HCl 4 mg 06/17/21 16:27 Ondansetron 4 Mg/2 Ml Vial IVP Q8HR PRN Nausea And Vomiting Phenytoin Sodium 50 mg 06/18/21 16:00 06/18/21 15:08 Phenytoin 50 Mg Chewable PO 50 mg DAILY@1600 [facility] Administration Phenytoin Sodium 100 mg 06/18/21 07:00 06/19/21 08:25 Phenytoin Sodium Extended 100 Mg Cap PO 100 mg DAILY@0700 [facility] Administration Tamsulosin HCl 0.4 mg 06/18/21 07:00 06/19/21 07:15 Tamsulosin 0.4 Mg Cap.Er.24h PO 0.4 mg DAILY@0700 [facility] Administration Thiamine HCl 100 mg 06/18/21 13:15 06/19/21 08:25 Thiamine 100 Mg Tab PO 100 mg DAILY [facility] Administration Intake and Output 06/18/21 06/19/21 06/19/21 22:59 06:59 14:59 Intake Total 1500 Balance 1500 Intake: Intake, IV Titration 900 Amount Sodium Chloride 0.9% 1, 900 000 ml @ 75 mls/hr IV . [id number] [facility] Rx#:[id number] Oral 600 Other: Voiding Method Toilet Urinal # Voids 4 # Bowel Movements 1 06/18/21 05:32 06/18/21 05:32
--- NOTE | 2021-06-19 10:11 | P.PN ---
Subjective Progress Note Date: 06/19/21 I am seeing the patient for the first time during this hospital visit. Please refer to Dr. Sellers's note for detailed neurological history. Per the nurse, the patient has history of ashley and presents because of generalized weakness. His heart rate overnight was as low as 33. It seems the patient is slow at baseline and is at baseline per the nurse. He is working with therapy and walked independently with a walker per nurse. Patient states he is doing well and wants to go back home. Objective - Vital Signs Vital signs: Vital Signs Temp 97.7 F 06/19/21 04:25 Pulse 47 L 06/19/21 04:25 Resp 18 06/19/21 04:25 BP 114/56 06/19/21 04:25 Pulse Ox 100 06/19/21 04:25 Intake & Output 06/18/21 06/19/21 06/19/21 18:59 06:59 18:59 Intake Total 118 1500 Output Total 200 Balance -82 1500 Intake: Intake, IV Titration 900 Amount Sodium Chloride 0.9% 1, 900 000 ml @ 75 mls/hr IV . [id number] [facility] Rx#:[id number] Oral 118 600 Output: Urine 200 Other: Voiding Method Toilet Toilet Urinal Urinal # Voids 4 # Bowel Movements 1 - Exam GENERAL: The patient is lying in bed and is not in acute distress. NEUROLOGICAL: Higher mental function: The patient is awake, alert, oriented to self, place. He stated the year initially as 2001 then on second attempt correctly stated 2021. Correctly stated current month. He is slow to respond (per nurse is at baseline). Is able to name objects. Patient is following simple commands. No aphasia and no neglect. Cranial nerves: The pupils are round, equal and reactive to light. Visual maldonado are full to confrontation throughout. Extraocular movement is intact no nystagmus is noted. Facial sensation is normal to touch throughout. The facial strength is normal throughout. No dysarthria is noted. Shoulder shrug is normal bilaterally. Motor: Gait is deferred. The strength is moving all extremities above gravity and no focality. Has burn owens with some atrophy over the bilateral hands. Normal tone. Cerebellum: Normal finger to nose heel to chin bilaterally. Sensation: Sensation is normal to touch throughout. - Labs CBC & Chem 7: 06/18/21 05:32 06/18/21 05:32 Assessment and Plan Assessment: * Generalized weakness, lethargy, likely because of hypotension, bradycardia (was as low as 33 overnight per nurse). Neurological examination is nonfocal. * Seizure disorder, well controlled. No seizure for last 5 years. 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 * Telemetry monitoring. * B12 level: 509, folate: 9.10, TSH: 4.50 * MMA, B6 and B1: Ordered by Dr. Sellers is pending. * Ordered CK level. * Patient's last hemoglobin A1c 5.2 on 11/26/2020. * Was started empirically on thiamine by Dr. Sellers because of possible malnutrition. * Patient's seizures are well controlled. Continue current seizure medications. Follow up with his neurologist Dr. Arroyo after discharge within 2 weeks. * PT OT, evaluate gait. * Cardiology on board. * 2D echo is ordered and is pending. * Ordered CK level. The plan is discussed with the patient's nurse. Bryce Melara M.D. Neuro-Hospitalist Time with Patient: Less than 30
[2021-06-19 11:29] VITALS: BMI 18.8
--- NOTE | 2021-06-19 12:08 | CA ---
Transthoracic Echo Report Name: Ildefonso Velez Age: 61 Gender: M : 1960 Exam Date: 06/19/2021 09:48 Exam Location: [facility] Ht (in): 71 Wt (lb): 135 Ordering Physician: Jonathan Owens MD Attending/Referring Phys: Vice President & General Manager [employer] Ruba Bartlett RDCS Procedure CPT: Indications: Bradydcardia Cardiac Hx: No cardiac hx. Technical Quality: Good Contrast 1: Total Dose (mL): Contrast 2: Total Dose (mL): MEASUREMENTS (Male / Female) Normal Values 2D ECHO LV Diastolic Diameter PLAX 3.7 cm 4.2 - 5.9 / 3.9 - 5.3 cm LV Systolic Diameter PLAX 2.7 cm IVS Diastolic Thickness 1.0 cm 0.6 - 1.0 / 0.6 - 0.9 cm LVPW Diastolic Thickness 1.1 cm 0.6 - 1.0 / 0.6 - 0.9 cm LV Relative Wall Thickness 0.6 RV Internal Dim ED PLAX 2.7 cm M-MODE Aortic Root Diameter MM 3.1 cm LA Systolic Diameter MM 2.9 cm LA Ao Ratio MM 0.9 MV E Point Septal Separation 0.7 cm AV Cusp Separation MM 2.0 cm DOPPLER AV Peak Velocity 94.7 cm/s AV Peak Gradient 3.6 mmHg MV Area PHT 2.3 cm??? MR Peak Velocity 72.3 cm/s MR Peak Gradient 2.1 mmHg Mitral E Point Velocity 63.7 cm/s Mitral A Point Velocity 46.9 cm/s Mitral E to A Ratio 1.4 MV Deceleration Time 327.2 ms TR Peak Velocity 77.5 cm/s TR Peak Gradient 2.4 mmHg Right Ventricular Systolic Press 7.4 mmHg FINDINGS Left Ventricle Normal Left ventricular size, wall thickness, systolic function with no obvious regional wall motion abnormalities. Normal Left ventricular diastolic filling pattern. Left ventricular ejection fraction is estimated at 55-60 %. Right Ventricle The right ventricle is normal in size and function. Right Atrium The right atrium is normal in size. Left Atrium The left atrium is normal in size. Mitral Valve Structurally normal mitral valve without significant stenosis or prolapse. There is a trace of mitral regurgitation. Aortic Valve Structurally normal aortic valve without significant sclerosis or stenosis. There is no aortic regurgitation. Tricuspid Valve Structurally normal tricuspid valve without significant stenosis. Pulmonary artery systolic pressure is normal. Trace tricuspid regurgitation. Pulmonic Valve Structurally normal pulmonic valve without significant stenosis. There is no pulmonic regurgitation. Pericardium Normal pericardium without effusion. Aorta Normal aortic root dimension. CONCLUSIONS Normal LV systolic function with an ejection fraction of 55-60% Previewed by: Dr. Reginald Alcantara MD (Electronically Signed) Final Date: 19 Jun 2021 12:08
--- NOTE | 2021-06-19 12:14 | P.DS ---
Providers Date of admission: 06/17/21 14:54 Expected date of discharge: 06/19/21 Attending physician: Jonathan Owens MD Consults: 06/17/21 16:08 Consult Physician Urgent Consulting Provider: Josef Sellers Consult Reason/Comments: new onset weakness and difficulty ambulating Do you want consulting provider notified?: Yes 06/18/21 10:38 Consult Physician Routine Consulting Provider: Markel Gage Consult Reason/Comments: Bradycardia Do you want consulting provider notified?: Yes Primary care physician: JACY Flanagan Hospital Course: Patient is a 61-year-old male with PMH of seizure disorder, depression that presents for generalized weakness. His caregiver states that over the last 2 days the patient has been noticeably weak when walking. The patient normally ambulates on his own without any assistance, he has noticed the patient swaying and requiring assistance when ambulating. He also states that the patient speaks more at baseline, the last 2 days the patient has been more reserved and "out of it". Caregiver denies any witnessed falls or head trauma. Patient denies any headache, lower extremity edema, nausea vomiting, fever chills, cough, chest pain, shortness of breath, palpitations, changes in urination or bowel habits. No changes in appetite or weight. Patient denies any numbness/weakness/tingling of dictation my days. No slurred speech. In the ED, vital signs are stable. CBC showed a platelet count of 88. Coagulation profile negative. CMP showed sodium of 135, potassium of 5.3, creatinine 1.5. Magnesium was 1.9. Lactic acid negative. Troponin was less than 0.012 with EKG showing no ST elevation. Patient is admitted under observation status for generalized weakness, neurology consultation and PTOT evaluation. Acute kidney injury, hyponatremia and hypokalemia resolved with IV hydration and correction of electrolytes. Neurology consulted, discussed with Dr. Sellers, no further neurological workup. Keppra and Dilantin levels within normal limits. PT and OT was consulted to work with the patient. Patient was noted to be bradycardic in the 30's. Cardiology was consulted and recommended Echocardiogram. Echo showed EF 55-60% with normal diastolic function. Patient was seen and examined on 06/19. He had no complaints and heart rate had improved to the high 40's. Patient was discharged on 06/19/2021. Advised to follow up with his PCP within 1-2 days and neurologist within 1 week of discharge. This complex discharge took about 45 minutes to complete. General: [non toxic], [no distress], [appears at stated age] Derm: [warm], [dry] Head: [atraumatic], [normocephalic], [symmetric] Eyes: [EOMI], [no lid lag], [anicteric sclera] Mouth: [no lip lesion], [mucus membranes moist] Cardiovascular: [Bradycardic], [no murmur] Lungs: [CTA bilateral], [no rhonchi, no rales] , [no accessory muscle use] Ext: [no gross muscle atrophy], [no edema], [no contractures] Neuro: [no focal neuro deficits] Psych: [Alert and Oriented x 2], [slow to respond but appropriate] Discharge Diagnosis: #Generalized weakness and debility #Bradycardia #Thrombocytopenia #Leukopenia Resolved: HypoNa, HypoK, RAHUL Chronic conditions: Seizure disorder, depression Pertinent Studies: CXR Head CT Echocardiogram Patient Condition at Discharge: Stable Plan - Discharge Summary Discharge Rx Participant: No New Discharge Prescriptions: Continue Desmopressin Acetate 0.4 mg PO HS@1999 clonazePAM [KlonoPIN] 0.5 mg PO HS@1999 Lacosamide [Vimpat] 50 mg PO DAILY@0700 Aspirin EC [Ecotrin Low Dose] 81 mg PO DAILY@0700 Phenytoin Chew [Dilantin Chew] 50 mg PO DAILY@1600 Tamsulosin HCl [Flomax] 0.4 mg PO DAILY@0700 Cholecalciferol (Vitamin D3) [Vitamin D3 (125 MCG = 5,000 IU)] 125 mcg PO DAILY@0700 levETIRAcetam [Keppra] 250 mg PO BID@0700,1999 Escitalopram [Lexapro] 10 mg PO HS@1999 Phenytoin Sodium Extended [Dilantin] 100 mg PO DAILY@0700 Iloperidone [Fanapt] 4 mg PO BID@0700,1999 Divalproex [Depakote] 1,000 mg PO TID@0700,1599,1999 Discharge Medication List Desmopressin Acetate 0.4 mg PO HS@199907/13/15 [History] Aspirin EC [Ecotrin Low Dose] 81 mg PO DAILY@0700 10/05/17 [History] Lacosamide [Vimpat] 50 mg PO DAILY@69910/05/16 [History] clonazePAM [KlonoPIN] 0.5 mg PO HS@199910/05/16 [History] Escitalopram [Lexapro] 10 mg PO HS@199910/20/20 [History] Iloperidone [Fanapt] 4 mg PO BID@699,199910/20/20 [History] Phenytoin Chew [Dilantin Chew] 50 mg PO DAILY@1600 10/20/20 [History] Phenytoin Sodium Extended [Dilantin] 100 mg PO DAILY@69910/20/20 [History] Divalproex [Depakote] 1,000 mg PO TID@07,1599,199911/25/20 [History] Cholecalciferol (Vitamin D3) [Vitamin D3 (125 MCG = 5,000 IU)] 125 mcg PO DAILY@69906/17/21 [History] Tamsulosin HCl [Flomax] 0.4 mg PO DAILY@69906/17/21 [History] levETIRAcetam [Keppra] 250 mg PO BID@699,199906/17/21 [History] Follow up Appointment(s)/Referral(s): Kimmie Hewitt MD [REFERRING] - 1 Week Amilcar Goel NPC [Primary Care Provider] - 1-2 days Activity/Diet/Wound Care/Special Instructions: Diet: Regular FU with PCP within 1-2 days of discharge. FU with your Neurologist within 1 week of discharge. Take all medications as advised. Come back to the ED for chest pain, shortness of breath, palpitations, lightheadedness/dizziness. Discharge Disposition: HOME SELF-CARE
[2021-06-19] MEDS: PHENYTOIN 50 MG CHEWABLE PO SCH (16:21)
[2021-06-21 09:51] LABS: Methylmalonic Acid 0.17 umol/L (<0.40)
== END 2021-06-19 18:30 | disposition home or self-care (01) ==
LOC: EC 10:36 → 5NMEDONC 14:54
PROVIDERS: ADMIT Family Medicine; ATTEND Family Medicine
DX: R53.1 Weakness (principal); R53.81 Other malaise; R00.1 Bradycardia, unspecified; D69.6 Thrombocytopenia, unspecified; E87.1 Hypo-osmolality and hyponatremia; E87.6 Hypokalemia; N17.9 Acute kidney failure, unspecified; F32.A Depression, unspecified; G40.909 Epilepsy, unspecified, not intractable, without status epilepticus; F41.9 Anxiety disorder, unspecified; E86.0 Dehydration; E87.5 Hyperkalemia; D72.819 Decreased white blood cell count, unspecified; N40.0 Benign prostatic hyperplasia without lower urinary tract symptoms; I95.9 Hypotension, unspecified; F10.21 Alcohol dependence, in remission; R26.2 Difficulty in walking, not elsewhere classified; F03.90 Unspecified dementia, unspecified severity, without behavioral disturbance, psychotic disturbance, mood disturbance, and anxiety; R41.89 Other symptoms and signs involving cognitive functions and awareness; G91.9 Hydrocephalus, unspecified; G31.9 Degenerative disease of nervous system, unspecified; F17.210 Nicotine dependence, cigarettes, uncomplicated; R41.82 Altered mental status, unspecified; R79.89 Other specified abnormal findings of blood chemistry; Z71.9 Counseling, unspecified; Z79.82 Long term (current) use of aspirin; Z79.899 Other long term (current) drug therapy
CPT/HCPCS: 96372 ×2; 96360; 99285; 36415; 93005; 93306; 97162; 97166; 84207; 83921; 84425; 80053 ×2; 80177; 84443; 82607; 82550; 80185; 82746; 83605; 83735 ×2; 84100 ×2; 84132; 84484; 85025 ×2; 85610; 85730; 81003; 71046; 72125; 70450; G0378 ×3; J1650 ×2

== ENCOUNTER 2021-07-06 09:44 | Inpatient (IN) | payer OTHER ==
[2021-07-06] MEDS ORDERED: ACETAMINOPHEN TAB 325 MG TAB PO PRN (10:50)
[2021-07-06] MEDS ORDERED: BENZOCAINE/MENTHOL LOZENG 1 EACH LOZENGE MUCOUS MEM PRN (10:50)
[2021-07-06] MEDS ORDERED: NALOXONE 0.4 MG/ML 1 ML VIAL IV PRN (10:50)
[2021-07-06] MEDS ORDERED: DOCUSATE 100 MG CAP PO PRN (10:50)
[2021-07-06] MEDS ORDERED: ONDANSETRON 4 MG/2 ML VIAL IVP PRN (10:50)
--- NOTE | 2021-07-06 14:42 | P.HPOR ---
History of Present Illness H&P Date: 07/06/21 Chief Complaint: RLE pain 61 yo male presented to the office today from his adult care facility with his caregiver due to RLE pain. He was seen in ED on 07/04 after a fall he sustained at his facility. Mental Health Counselor states he was going to the bus that he takes every [place] and he slipped and fell and was unable to ambulate after. They waited a day and then took him to ED for eval. Upon eval in ED he was found to have a distal tibial shaft fracture that was spiral in nature and displaced along with a proximal fibular fracture that was displaced. He was placed in a posterior slab splint and sent home. He followed up in office today in extreme pain. Unable to ambulate with his ways operator. He was evaluated and sent back to ED for direct admit due to the surgical nature of this fracture. His ways operator was in agreement with this. We contacted his guardian service [facility] Guardian--Jacqui Aaron who was in agreement with this as well. He is somewhat non verbal but does answer questions appropriately. He states pain in his RLE. He has difficulty with motion of his toes. He can feel them and move them but it causes pain. He denies any numbness. Denies any tingling. Review of Systems 14 points review of systems completed and as stated in HPI, all other systems reviewed are negative. Past Medical History Past Medical History: Seizure Disorder Additional Past Medical History / Comment(s): epilepsy, developmentally delayed History of Any Multi-Drug Resistant Organisms: None Reported Past Surgical History: No Surgical Hx Reported Additional Past Surgical History / Comment(s): Only surgery known was plastic surgery due to ashley as a child. Past Anesthesia/Blood Transfusion Reactions: Unable to Obtain Past Psychological History: Depression Smoking Status: Current every day smoker Past Alcohol Use History: None Reported Past Drug Use History: None Reported - Past Family History Father History Unknown: Yes Family Medical History: Unable to Obtain Mother History Unknown: Yes Family Medical History: Unable to Obtain Medications and Allergies Home Medications Medication Instructions Recorded Confirmed Type Desmopressin Acetate 0.4 mg PO HS@199907/13/15 06/17/21 History Aspirin EC [Ecotrin Low Dose] 81 mg PO DAILY@69910/05/16 06/17/21 History Lacosamide [Vimpat] 50 mg PO DAILY@69910/05/16 06/17/21 History clonazePAM [KlonoPIN] 0.5 mg PO HS@199910/05/16 06/17/21 History Escitalopram [Lexapro] 10 mg PO HS@199910/20/20 06/17/21 History Iloperidone [Fanapt] 4 mg PO BID@10/20/20 06/17/21 History Phenytoin Chew [Dilantin Chew] 50 mg PO DAILY@159910/20/20 06/17/21 History Phenytoin Sodium Extended 100 mg PO DAILY@69910/20/20 06/17/21 History [Dilantin] Divalproex [Depakote] 1,000 mg PO TID@699,1599,199911/25/20 06/17/21 History Cholecalciferol (Vitamin D3) 125 mcg PO DAILY@69906/17/21 06/17/21 History [Vitamin D3 (125 MCG = 5,000 IU)] Tamsulosin HCl [Flomax] 0.4 mg PO DAILY@69906/17/21 06/17/21 History levETIRAcetam [Keppra] 250 mg PO BID@06/17/21 06/17/21 History Allergies Allergy/AdvReac Type Severity Reaction Status Date / Time No Known Allergies Allergy Verified 07/06/21 10:02 Physical Examination Osteopathic Statement: *. No significant issues noted on an osteopathic structural exam other than those noted in the History and Physical/Consult. AOX 2-3 NAD, unkempt and dirty. Long toe nails and finger nails. Wheelchair Non septic RLE: Splint inplace, somewhat, falling off. Splint opened and leg examined. There is swelling about the distal lower leg with some erythema. No open wounds, or skin breaks. Compartments are compressive. Swelling makes LE some what taut. Palpable pulse LE b/l DP/PT palpable +edema 2+ TTP distal tibia and fibula, stable ankle joint to testing V/V/A/P SILT L2-S1 +DF/PF/EHL/FHL/KE/KF/HF 2/4 DTR all No pathological reflexes b/l UE and LLE all FROM w/o pain or injury at this time all major joints which are neurovacularly intact. Results 07/04/21: Xray tib/fib from ED show distal 1/3 tibial shaft fracture that is spiral in nature and displaced in valgus. It does not appear to extend into the joint at this time on AP or Lat. There is a proximal fibular fracture that is visible as well butterfly and mildly displaced. No ankle abnormalities seen. No knee joint abnormalities seen at this time in these limited films. Assessment and Plan Assessment: 1. Rt tibial shaft fracture, distal 1/3 spiral, displaced, closed 2. Rt proximal fibular shaft fracture 3. s/p ffs 4. debility related to developmental disorder Plan: -Admit to hospital -Medical consult for management and clearance for OR -Pain control -Ice and elevation of RLE -NWB RLE -NPO at SD -Plan for IMN fixation of Right tibia 07/07/21 Noon.
--- NOTE | 2021-07-06 15:52 | XR ---
AP chest x-ray HISTORY: Preop for fracture of ankle Single frontal view the chest submitted correlated prior exam 06/17/2021 There are overlying leads. Cardiac mediastinal silhouette is stable. No evident airspace disease, pne umothorax, or pleural effusion. Bones are stable. IMPRESSION: No acute cardiopulmonary disease.
[2021-07-06 18:13] LABS: Albumin 3.4 g/dL (3.5-5.0); Calcium 8.6 mg/dL (8.4-10.2); Potassium 4.9 mmol/L (3.5-5.1); Total Bilirubin 0.4 mg/dL (0.2-1.3); Total Protein 5.9 g/dL (6.3-8.2)
[2021-07-06 18:19] LABS: Anisocytosis Slight; Basophils % (A) 1 %; Eosinophils # (A) 0.1 k/uL (0-0.7); Eosinophils % (A) 1 %; HCT 40.1 % (39.0-53.0); HGB 12.6 gm/dL (13.0-17.5); Lymphocytes # (A) 1.2 k/uL (1.0-4.8); Lymphocytes % (A) 20 %; MCH 30.6 pg (25.0-35.0); MCHC 31.4 g/dL (31.0-37.0); MCV 97.5 fL (80.0-100.0); Monocytes # (A) 0.6 k/uL (0-1.0); Monocytes % (A) 10 %; Neutrophils % (A) 66 %; Platelet Count 102 k/uL (150-450); RBC 4.11 m/uL (4.30-5.90); RDW 16.2 % (11.5-15.5); WBC 6.2 k/uL (3.8-10.6)
[2021-07-06 18:27] LABS: Appearance,Urine Clear (Clear); Bilirubin,Urine Negative (Negative); Blood,Urine Negative (Negative); Color,Urine Yellow; Glucose,Urine (UA) Negative (Negative); Hyaline Casts,Urine 3 /lpf (0-2); Ketones,Urine 1+ (Negative); Leukocyte Esterase,Urine Negative (Negative); Mucus,Urine Occasional /hpf; Nitrite,Urine Negative (Negative); PH, Urine 5.5 (5.0-8.0); Protein,Urine 1+ (Negative); RBC,Urine <1 /hpf (0-5); Specific Gravity,Urine 1.021 (1.001-1.035); WBC,Urine 2 /hpf (0-5)
[2021-07-06 20:13] LABS: Prothrombin Time 11.3 sec (9.0-12.0)
[2021-07-06] MEDS: SODIUM CHLORIDE 0.9% 1,000 ML IV SCH (20:36)
--- NOTE | 2021-07-07 01:07 | P.CONS ---
History of Present Illness - Reason for Consult Consult date: 07/06/21 - History of Present Illness The patient is a 61-year-old male, resident of an adult foster care, who was sent to the emergency room from the orthopedic surgeons clinic due to right lower extremity pain. The patient is a poor historian, easily distracted, and hard to reorient. He notes falling as he was trying to get into a van 3 days ago. Reports ongoing right leg pain since then. The patient was noted to have a spiral distal tibial shaft fracture and a proximal fibular displaced fracture. The patient was placed in the splint and was sent home. He however presented to the orthopedic surgery clinic with severe pain, at which time he was directed to the emergency room. The patient reports using some sort of a cane at baseline, although would not elaborate further on the exact type of device. He denied any complaints aside from right leg pain at the time of interview. Denied exposing chest discomfort or shortness of breath. Also denied abdominal pain, nausea, vomiting, fever, chills, cough. Reports no pain of the right lower extremity at rest. Attempted to contact patient's public guardian Jacqui Aaron at phone # [phone], with no response. Of note, the patient was evaluated by cardiology during admission earlier this month for debility and bradycardia. Echocardiogram performed during that hospitalization was unremarkable with EF 55-60%. Laboratory evaluation was reviewed and was remarkable for platelet count of 102. Review of systems: Pertinent positives and negatives as discussed in HPI, a complete review of systems was performed and all other systems are negative. Physical examination: General: non toxic, no distress, appears at stated age, thin Derm: Healed burn owens on the left chest and flank, no unusual ecchymoses, warm, dry Head: atraumatic, normocephalic, symmetric Eyes: EOMI, no lid lag, anicteric sclera, pupils equal round reactive to light ENT: Nose and ears atraumatic, no thrush, no pharyngeal erythema Neck: No thyromegaly, no cervical lymphadenopathy, trachea midline, supple Mouth: no lip lesion, mucus membranes moist Cardiovascular: S1S2 reg, no murmur, positive posterior tibial pulse bilateral, no edema, capillary refill less than 2 seconds Lungs: CTA bilateral, no rhonchi, no rales , no accessory muscle use Abdominal: soft, nontender to palpation, no guarding, no appreciable organomegaly, normal bowel sounds Ext: no gross muscle atrophy, no contractures, moving all extremities, right lower extremity dressings in place Neuro: CN II-XI grossly intact, light touch intact all 4 extremities, finger to nose within normal limits, Psych: Easily distracted, oriented to person and place, and year but not oriented to month Assessment/plan Preoperative evaluation -Patient with a history of seizure disorder, cognitive impairment, thrombocy topenia, and depression admitted for right lower extremity fracture with intractable pain. METS > 4 as per chart review. Recent Echo unremarkable. Platelet count stable and at baseline at 102. -The patient is low to moderate risk for intraoperative cardiac complications for orthopedic surgery. Caution recommended for risk of additional bleeding in light of thrombocytopenia. No obvious modifiable risk factors noted. Right lower extremity fractures -Defer management including pain control to the primary surgery service Past Medical History Past Medical History: Seizure Disorder Additional Past Medical History / Comment(s): epilepsy, developmentally delayed History of Any Multi-Drug Resistant Organisms: None Reported Past Surgical History: No Surgical Hx Reported Additional Past Surgical History / Comment(s): Only surgery known was plastic surgery due to ashley as a child. Past Anesthesia/Blood Transfusion Reactions: Unable to Obtain Past Psychological History: Depression Smoking Status: Current every day smoker Past Alcohol Use History: None Reported Past Drug Use History: None Reported - Past Family History Father History Unknown: Yes Family Medical History: Unable to Obtain Mother History Unknown: Yes Family Medical History: Unable to Obtain Medications and Allergies Home Medications Medication Instructions Recorded Confirmed Type Desmopressin Acetate 0.4 mg PO HS@199907/13/15 07/06/21 History Aspirin EC [Ecotrin Low Dose] 81 mg PO DAILY@0710/05/16 07/06/21 History Lacosamide [Vimpat] 50 mg PO DAILY@0710/05/16 07/06/21 History clonazePAM [KlonoPIN] 0.5 mg PO HS@199910/05/16 07/06/21 History Escitalopram [Lexapro] 10 mg PO HS@199910/20/20 07/06/21 History Iloperidone [Fanapt] 4 mg PO BID@0700,199910/20/20 07/06/21 History Phenytoin Chew [Dilantin Chew] 50 mg PO DAILY@1600 10/20/20 07/06/21 History Phenytoin Sodium Extended 100 mg PO DAILY@00 10/20/20 07/06/21 History [Dilantin] Divalproex [Depakote] 1,000 mg PO TID@699,1599,199911/25/20 07/06/21 History Cholecalciferol (Vitamin D3) 125 mcg PO DAILY@69906/17/21 07/06/21 History [Vitamin D3 (125 MCG = 5,000 IU)] Tamsulosin HCl [Flomax] 0.4 mg PO DAILY@69906/17/21 07/06/21 History levETIRAcetam [Keppra] 250 mg PO BID@699,199906/17/21 07/06/21 History Allergies Allergy/AdvReac Type Severity Reaction Status Date / Time No Known Allergies Allergy Verified 07/06/21 16:43 Physical Exam Vitals: Vital Signs Temp Pulse Pulse Resp BP BP Pulse Ox 07/06/21 22:00 15 07/06/21 21:19 98.1 F 59 L 15 118/60 98 07/06/21 20:41 60 18 104/66 97 07/06/21 12:43 63 16 96/61 98 07/06/21 12:18 63 16 90/59 98 07/06/21 10:50 75 18 113/60 97 07/06/21 09:48 97.6 F 73 18 72/49 97 Intake and Output 07/06/21 07/06/21 07/07/21 14:59 22:59 06:59 Other: Voiding Method Urinal Weight 61.235 kg Results CBC & Chem 7: 07/06/21 10:53 07/06/21 11:10 Labs: Abnormal Lab Results - Last 24 Hours (Table) 07/06/21 07/06/21 07/06/21 Range/Units 10:53 11:10 13:00 RBC 4.11 L (4.30-5.90) m/uL Hgb 12.6 L (13.0-17.5) gm/dL RDW 16.2 H (11.5-15.5) % Plt Count 102 L (150-450) k/uL Carbon Dioxide 31 H (22-30) mmol/L Total Protein 5.9 L (6.3-8.2) g/dL Albumin 3.4 L (3.5-5.0) g/dL Urine Protein 1+ H (Negative) Urine Ketones 1+ H (Negative) Hyaline Casts 3 H (0-2) /lpf Urine Mucus Occasional H (None) /hpf
[2021-07-07] MEDS: HYDROcodone/APAP 5-325MG 1 EACH TAB PO PRN ×2 (03:55→21:58)
[2021-07-07] MEDS ORDERED: TRANEXAMIC ACID IN NACL,ISO-OS 1,000 MG in SALINE 1 100ML.BAG IVPB PRN ×2 (05:00)
[2021-07-07] MEDS: levETIRAcetam 250 MG TAB PO SCH ×2 (07:39→21:44)
[2021-07-07] MEDS: LACOSAMIDE 50 MG TABLET PO SCH (07:39)
[2021-07-07] MEDS: DIVALPROEX 500 MG TABLET.DR PO SCH ×3 (07:39→21:44)
[2021-07-07] MEDS: PHENYTOIN SODIUM EXTENDED 100 MG CAP PO SCH (07:39)
[2021-07-07] MEDS: ASPIRIN 81 MG PO SCH (07:43)
[2021-07-07] MEDS: TAMSULOSIN 0.4 MG CAP.ER.24H PO SCH (07:43)
--- NOTE | 2021-07-07 08:15 | P.PN ---
Subjective Progress Note Date: 07/07/21 Principal diagnosis: RLE pain Patient seen and examined at bedside. He states his pain is controlled at this time. Patient has remained nothing by mouth for surgical procedure today. Mr. Velez verbalizes understanding of procedure. He is able to wiggle toes on the right lower extremity. Informed power and recovery shift engineer RN that patient needs to have right lower extremity elevated on pillows and use of ice packs to reduce swelling and assist in pain management. Patient denies any fever/chills, nausea/vomiting, or chest pain. Objective - Vital Signs Vital signs: Vital Signs Temp 97.9 F 07/07/21 01:30 Pulse 53 L 07/07/21 01:30 Resp 16 07/07/21 01:30 BP 101/55 07/07/21 01:30 Pulse Ox 99 07/07/21 01:30 FiO2 Intake & Output 07/06/21 07/07/21 07/07/21 18:59 06:59 18:59 Intake Total 290 Balance 290 Weight 61.235 kg Intake: Intake, IV Titration 240 Amount Sodium Chloride 0.9% 1, 240 000 ml @ 20 mls/hr IV . Q24H [facility] Rx#:[id number] Oral 50 Other: Voiding Method Urinal # Voids 4 - Exam Physical Examination General: The patient is awake and alert, in no acute distress Skin: Skin is warm and dry with no obvious rashes or lesions. Hairy patches absent, no dorsal skin dimples, no cafe au lait spots, and no surgical incis ions. Eye: Pupils are equal, round and reactive to light, extra-ocular movements are intact; there is normal conjunctiva bilaterally. Neck: The neck is supple, there is no tenderness and ROM intact. Cardiovascular: There is a regular rate and rhythm. No murmur, rub or gallop is appreciated. Respiratory: Lungs are clear to auscultation, respirations are non-labored, breath sounds are equal. Gastrointestinal: Soft, non-distended, non-tender abdomen Musculoskeletal: ROM limited in right lower extremity due to fracture. FROM, 5/5 in all other major muscle groups. Neurological: CN 2-12 intact. There are no obvious motor or sensory deficits. Movement and coordination equal and intact. Sensory exam to light touch intact C5-T1 and intact from L2-S1. Reflexes 2/4 in bilateral upper and lower extremities. Negative Hoffmans, babinski, and clonus signs. Psychiatric: Cooperative, appropriate mood & affect, normal judgment. - Labs CBC & Chem 7: 07/06/21 10:53 07/06/21 11:10 Labs: Abnormal Lab Results - Last 24 Hours (Table) 07/06/21 07/06/21 07/06/21 Range/Units 10:53 11:10 13:00 RBC 4.11 L (4.30-5.90) m/uL Hgb 12.6 L (13.0-17.5) gm/dL RDW 16.2 H (11.5-15.5) % Plt Count 102 L (150-450) k/uL Carbon Dioxide 31 H (22-30) mmol/L Total Protein 5.9 L (6.3-8.2) g/dL Albumin 3.4 L (3.5-5.0) g/dL Urine Protein 1+ H (Negative) Urine Ketones 1+ H (Negative) Hyaline Casts 3 H (0-2) /lpf Urine Mucus Occasional H (None) /hpf Assessment and Plan Assessment: Assessment: 1. Rt tibial shaft fracture, distal 1/3 spiral, displaced, closed 2. Rt proximal fibular shaft fracture 3. s/p ffs 4. debility related to developmental disorder Plan: Plan: -Medical consult for management and clearance for OR -Pain control -Ice and elevation of RLE -NWB RLE -Remain NPO -Plan for IMN fixation of Right tibia 07/07/21 Noon. *I reviewed and discussed this case with my attending Dr. Salgado, whom has reviewed this chart and films and is in agreement with assessment and plan of care as outlined above. I have personally seen and examined the patient, performed the documentation and the assessment and plan as written. Number of minutes spent on the visit: 20m. Time with Patient: Less than 30
--- NOTE | 2021-07-07 09:56 | CT ---
EXAMINATION TYPE: CT lower leg RT wo con DATE OF EXAM: 07/07/2021 COMPARISON: Plain film 07/04/2021 HISTORY: Fracture right tibia CT DLP: 559.4 mGycm Automated exposure control for dose reduction was used. Helical imaging through the right ankle. Thre e-dimensional reconstructions performed on an alternate workstation FINDINGS: Soft tissue swelling is noted. Comminuted displaced distal diaphyseal right tibial fracture is noted as on plain film. There is an additional small fracture fragment seen at the level of the lateral tib ia anteriorly with minimal displacement, articular extension. IMPRESSION: ADDITIONAL FRACTURE AT THE DISTAL TIBIA DESCRIBED NOT SEEN ON RADIUS RIGHT LEG EXAM
[2021-07-07] MEDS ORDERED: IV FLUID CONTINUATION 650 ML IV ONE (11:09)
[2021-07-07 11:32] VITALS: BMI 18.8
[2021-07-07] MEDS ORDERED: LIDOCAINE 2% INJ 20 MG/ML (2 ML VIAL) ONE (12:47)
[2021-07-07] MEDS ORDERED: TRANEXAMIC ACID IN NACL,ISO-OS 1,000 MG/100 ML BAG ONE (12:47)
[2021-07-07] MEDS ORDERED: MIDAZOLAM 2 MG/2 ML VIAL ONE (12:47)
[2021-07-07] MEDS ORDERED: fentaNYL (PF) 50 MCG/ML 2 ML AMP ONE (12:47)
[2021-07-07] MEDS ORDERED: PROPOFOL 10 MG/ML 20 ML VIAL IV ONE (12:47)
[2021-07-07] MEDS ORDERED: ePHEDrine 50 MG/ML 1 ML VIAL ONE (12:47)
[2021-07-07] MEDS ORDERED: LACTATED RINGERS 1,000 ML IV ONE (13:30)
--- NOTE | 2021-07-07 13:45 | P.PN ---
Subjective Progress Note Date: 07/07/21 Principal diagnosis: RLE fracture The patient is a 61-year-old male, resident of an adult foster care, who was sent to the emergency room from the orthopedic surgeons clinic due to right lower extremity pain. The patient is a poor historian, easily distracted, and hard to reorient. He notes falling as he was trying to get into a van 3 days ago. Reports ongoing right leg pain since then. The patient was noted to have a spiral distal tibial shaft fracture and a proximal fibular displaced fracture. The patient was placed in the splint and was sent home. He however presented to the orthopedic surgery clinic with severe pain, at which time he was directed to the emergency room. The patient reports using some sort of a cane at baseline, although would not elaborate further on the exact type of device. He denied any complaints aside from right leg pain at the time of interview. Denied exposing chest discomfort or shortness of breath. Also denied abdominal pain, nausea, vomiting, fever, chills, cough. Reports no pain of the right lower extremity at rest. Attempted to contact patient's public guardian Jacqui Aaron at phone # [phone], with no response. Of note, the patient was evaluated by cardiology during admission earlier this month for debility and bradycardia. Echocardiogram performed during that hospitalization was unremarkable with EF 55-60%. Laboratory evaluation was reviewed and was remarkable for platelet count of 102. Patient seen and examined at bedside. Reports that pain is controlled. Denies chest pain, shortness of breath or palpitations. Afebrile. Objective - Vital Signs Vital signs: Vital Signs Temp 98.2 F 07/07/21 11:09 Pulse 54 L 07/07/21 11:09 Resp 16 07/07/21 11:09 BP 116/60 07/07/21 11:09 Pulse Ox 99 07/07/21 11:09 FiO2 Intake & Output 07/06/21 07/07/21 07/07/21 18:59 06:59 18:59 Intake Total 290 400 Output Total 500 Balance 290 -100 Weight 61.235 kg 61.235 kg 61.235 kg Intake: IV 400 Intake, IV Titration 240 Amount Sodium Chloride 0.9% 1, 240 000 ml @ 20 mls/hr IV . Q24H [facility] Rx#:[id number] Oral 50 Output: Urine 500 Other: Voiding Method Urinal # Voids 4 - Exam Constitutional: No acute distress, on room air HEENT: Pupils equally reactive to light, atraumatic, normocephalic. Lungs: Clear to auscultation bilaterally, no wheezing, no crackles Cardiovascular: RRR, S1-S2 normal, no murmur, no peripheral edema Abdominal: Soft, nontender, no guarding, rebound or rigidity Extremities: No cyanosis or clubbing, RLE dressings Neuro: No focal neurological signs alert - Labs CBC & Chem 7: 07/06/21 10:53 07/06/21 11:10 Labs: Abnormal Lab Results - Last 24 Hours (Table) 07/06/21 07/06/21 07/06/21 Range/Units 10:53 11:10 13:00 RBC 4.11 L (4.30-5.90) m/uL Hgb 12.6 L (13.0-17.5) gm/dL RDW 16.2 H (11.5-15.5) % Plt Count 102 L (150-450) k/uL Carbon Dioxide 31 H (22-30) mmol/L Total Protein 5.9 L (6.3-8.2) g/dL Albumin 3.4 L (3.5-5.0) g/dL Urine Protein 1+ H (Negative) Urine Ketones 1+ H (Negative) Hyaline Casts 3 H (0-2) /lpf Urine Mucus Occasional H (None) /hpf Assessment and Plan Assessment: Right lower extremity fracture - Per orthopedic surgery. Likely surgical intervention today. Seizure disorder - Continue Depakote and Vimpat - Continue Keppra and phenytoin Cognitive impairment - Continue supportive care. Thrombocytopenia - No evidence of active bleeding. -Continue to monitor Depression -Continue Lexapro BPH - Continue Flomax Preoperative evaluation -Patient with a history of seizure disorder, cognitive impairment, thrombocytopenia, and depression admitted for right lower extremity fracture with intractable pain. METS > 4 as per chart review. Recent Echo unremarkable. Platelet count stable and at baseline at 102. -The patient is low to moderate risk for intraoperative cardiac complications for orthopedic surgery. Caution recommended for risk of additional bleeding in light of thrombocytopenia. No obvious modifiable risk factors noted.
--- NOTE | 2021-07-07 14:50 | XR ---
EXAMINATION TYPE: XR tibia fibula RT, FL guidance operating room DATE OF EXAM: 07/07/2021 COMPARISON: NONE HISTORY: Fracture Fluoroscopy support supplied to the referring clinician. See dictated report from orthopedic surgery , 1 minute 39 seconds fluoroscopy time, 11 intraoperative C-arm images document the procedure
[2021-07-07] MEDS ORDERED: HYDROmorphone 0.5 MG/0.5 ML SYRINGE IVP PRN (14:59)
[2021-07-07] MEDS ORDERED: diphenhydrAMINE 50 MG/ML 1 ML VIAL IVP ONE ×2 (15:05→15:23)
[2021-07-07] MEDS: SODIUM CHLORIDE 0.9% 1,000 ML IV SCH (15:58)
[2021-07-07] MEDS: LACTATED RINGERS 1,000 ML IV SCH ×2 (15:58→19:48)
--- NOTE | 2021-07-07 18:51 | P.PN ---
Progress Note - Text Progress Note Date: 07/07/21 Postop: . Patient seen and examined they are doing well. Their pain is under control at this time. They are moving all 4 extremities without any issues. Vital signs are stable.. They are currently recovering and doing well on the floor. splint in place well fitting capillary refill brisk in all toes [Continue with intravenous fluids, pain medication, muscle relaxers, home medication] [Soft diet to start to advance as tolerated] We will evaluate the patient in the morning.
--- NOTE | 2021-07-07 18:59 | P.OP ---
Date of Procedure: 07/07/21 Preoperative Diagnosis: 1. Right distal 1/3 tibial shaft fracture spiral, displaced, closed 2. Developmental disorder 3. s/p ffs Postoperative Diagnosis: 1. Right distal 1/3 tibial shaft fracture spiral, displaced, closed 2. Developmental disorder 3. s/p ffs Procedure(s) Performed: 1. Open reduction with Intramedullary nail fixation of right tibia 2. Interpretation of intraoperative flouroscopy <1 hr 3. Short leg splint application RLE Implants: -Synthese 11 x345 mm Tibial nail -Two distal, two proximal locking screws Anesthesia: GETA Surgeon: Aki Salgado Starch Crab #1: Rochelle Coleman (Was present and assisted with all aspects of the case from postionog to closure and splint application) Estimated Blood Loss (ml): 100 IV fluids (ml): 500 Urine output (ml): 150 Pathology: none sent Condition: stable Disposition: PACU Indications for Procedure: 61 yo male presented with c/o RLE pain and inability to ambulate after ffs. Pt lives in [facility]. Headwaitress brought pt to ED he was found to have distal tibia fracture that was displaced. He was placed in a splint and sent home with follow up info. He presented to office with swelling and mangled splint. He was admitted to hospital due to surgical nature of fracture for fixation. Guardian services was contacted and they consented for procedure. We discussed with them and his architectural associate risks and benefits as well as potential outcomes and limitations. They understood and agreed. They were willing to undergo the procedure. Description of Procedure: The patient was seen and examined in the preoperative area. All preoperative protocols were followed. Informed consent was obtained risks and benefits of the procedure were discussed at length. Risks including bleeding infection damage to the surrounding tissue and risk of reoperation were discussed with the patient. Risk of anesthesia up to and including was a discussed with the patient. These are outlined in the risk reviewed. They were willing to accept these risks and all of the risks of surgery. The patient was given a weight- based dose of antibiotics in the form of 2 g Ancef. The patient was seen and evaluated by the anesthesia team who deemed them fit for surgery. The site was marked, the patient was willing to proceed with the procedure. The patient was transferred to the operative suite by the Department of anesthesia. There were then drifted off to sleep by the department of anesthesia and GETA anesthesia was used. Once adequate anesthesia had been obtained the patient was carefully transferred to the operative bed. All bony prominences were padded accordingly. SCDs were placed on the nonoperative lower extremities. Arms were well padded. the right lower extremity was exposed and placed on the bone forming ramp. A bump was placed in the patient's right hip. Tape secured the opposite leg to the table and the patient was secured to the table to take safety strap. Preoperative briefing was done with the operative team and everyone was ready for the procedure to start. The patients RLE was then prepped and draped in the normal sterile fashion. Timeout was then performed and all parties in agreement with the procedure to be performed. The patella was marked out and a skin incision was made from the proximal pole of the patella2 fingerbreadths above it and taken down through the quad tendon in line with its fibers. We then carefully placed the suprapatellar jig into position and placed a guidewire through it AP and lateral fluoroscopy was used to place a guidewire then proximally within the tibia in line with the shaft and just off the articular surface anteriorly. Once this was placed we confirmed its position and then placed an opening reamer over it with a remove this and placed a ball-tipped guidewire. Distally we made small skin incisions around the fracture site and under fluoroscopic guidance we placed a point to point clamp and carefully clamped down the fracture and pulled traction until it was reduced on the AP and lateral. Once reduced it was held with the point to point we advanced the ball tip to the physeal scar center center within the distal tibia. We then sequentially reamed until we reached a 12.5 reamer for an 11 nail. We measured the length of the nail and selected an 11 x 345 mm nail. This was then impacted into place under xray guidance. The fracture remained reduced. Once in position and in good rotation we obtained perfect circles distally and placed two distal locking screws medial to lateral. We confirmed their position within the nail on AP and Lateral images. We then placed the aiming guide proximally and placed two proximal screws. One in the S1 hole and the other in the oblique hole. These were drilled, measured and placed with image guidance. We then removed the jig. We removed the clamp on the fracture and the fracture was imaged and remained stable. We then removed the nail loss mitigation specialist. Final images taken showing good placement of hardware, maintenance of fracture LAR. We then copiously irrigated the wounds with NSS. The quat tendon was closed with O vicryl. The subcue tissues closed with 2.0 Vicryl and the skin closed with skin shavon. All wounds approximated very well. We then cleaned and dressed the wound with optifoam dressings. We then placed the RLE in a well padded well molded short leg AO plaster splint. This was then overwrapped with an nba wrap. Capillary refill was brisk in all toes after splint placement. Window anteriorly was made for compartment checks. The patient was then transferred back to their hospital bed. There were awakened by department of anesthesia having tolerated the procedure very well with no complications. The patient was then transported to the postoperative care unit in stable condition.
[2021-07-07] MEDS: DESMOPRESSIN 0.2 MG TAB PO SCH (21:43)
[2021-07-07] MEDS: HEPARIN SODIUM,PORCINE/PF 5,000 UNIT/0.5 ML SYRINGE SQ SCH (21:44)
[2021-07-07] MEDS: ESCITALOPRAM 10 MG TAB PO SCH (21:44)
[2021-07-08] MEDS: HEPARIN SODIUM,PORCINE/PF 5,000 UNIT/0.5 ML SYRINGE SQ SCH ×3 (05:09→23:22)
[2021-07-08] MEDS ORDERED: fentaNYL (PF) 50 MCG/ML 2 ML AMP IV PRN (07:00)
[2021-07-08] MEDS: LACTATED RINGERS 1,000 ML IV SCH ×2 (08:06→08:22)
[2021-07-08] MEDS: ASPIRIN 81 MG PO SCH (08:18)
[2021-07-08] MEDS: TAMSULOSIN 0.4 MG CAP.ER.24H PO SCH (08:18)
[2021-07-08] MEDS: LACOSAMIDE 50 MG TABLET PO SCH (08:19)
[2021-07-08] MEDS: DIVALPROEX 500 MG TABLET.DR PO SCH ×3 (08:19→20:37)
[2021-07-08] MEDS: levETIRAcetam 250 MG TAB PO SCH ×2 (08:20→20:37)
[2021-07-08] MEDS: PHENYTOIN SODIUM EXTENDED 100 MG CAP PO SCH (08:20)
[2021-07-08] MEDS: SODIUM CHLORIDE 0.9% 1,000 ML IV SCH (08:21)
--- NOTE | 2021-07-08 09:42 | P.PN ---
Subjective Progress Note Date: 07/08/21 Pt s/e this AM. He is doing well. In bed, but got up with nursing and sat in chair w/o issues. States he has little pain in his leg. Splint inplace and well fitting. Wiggles toes on command. No sob/cp overnight. Does not provide alot of history. NSG states no issues overnight. Objective - Vital Signs Vital signs: Vital Signs Temp 99.1 F 07/08/21 08:14 Pulse 67 07/08/21 08:14 Resp 18 07/08/21 08:14 BP 119/59 07/08/21 08:14 Pulse Ox 98 07/08/21 08:14 FiO2 Intake & Output 07/07/21 07/08/21 07/08/21 18:59 06:59 18:59 Intake Total 1500 Output Total 1200 600 150 Balance 300 -600 -150 Weight 61.235 kg Intake: IV 1500 Output: Urine 1000 600 150 Uretheral (Zhong) 300 Estimated Blood Loss 200 Other: Voiding Method Urinal Urinal # Voids 2 7 - Exam AOX2-3, essentially non verbal but will state yes and no to questions NAD NTTP RLE Splint in place CDI Wiggles toes Cap refill brisk all toes RLE Compartments soft compressive SILT L2-S1 - Labs CBC & Chem 7: 07/06/21 10:53 07/06/21 11:10 Assessment and Plan Assessment: 61 yo male POD1 Rt tibial IMN 1. Rt tibial shaft fracture, distal 1/3 spiral, displaced, closed 2. Rt proximal fibular shaft fracture 3. s/p ffs 4. debility related to developmental disorder Plan: -NWB in splint until boot arrives then we will change to boot and pt can be WBAT in boot -ICE and elevation of RLE for swelling control -Compartment and NV checks q shift -GI/DVT ppx, TEDs SCDs, Heparin -ABX post op -Medical management -Anticipate Rehab vs back to [facility] 1-2 days
--- NOTE | 2021-07-08 12:41 | P.PN ---
Subjective Progress Note Date: 07/08/21 Principal diagnosis: Right lower extremity fracture Interval history: The patient is a 61-year-old male, resident of an adult foster care, who was sent to the emergency room from the orthopedic surgeons clinic due to right lower extremity pain. The patient is a poor historian, easily distracted, and hard to reorient. He notes falling as he was trying to get into a van 3 days ago. Reports ongoing right leg pain since then. The patient was noted to have a spiral distal tibial shaft fracture and a proximal fibular displaced fracture. The patient was placed in the splint and was sent home. He however presented to the orthopedic surgery clinic with severe pain, at which time he was directed to the emergency room. The patient reports using some sort of a cane at baseline, although would not elaborate further on the exact type of device. Patient was found to have a right tibial pulse shaft fracture, distal one third spiral, displaced closed fracture. Patient underwent ORIF on 07/07/2021 07/08/2021: Patient seen and examined today. No acute complaints. Patient does have baseline cognitive impairment and history is limited due to patient's verbal responses. Discussed with nursing staff no acute issues reported Objective - Vital Signs Vital signs: Vital Signs Temp 99.1 F 07/08/21 08:14 Pulse 67 07/08/21 08:14 Resp 18 07/08/21 08:14 BP 119/59 07/08/21 08:14 Pulse Ox 98 07/08/21 08:14 FiO2 Intake & Output 07/07/21 07/08/21 07/08/21 18:59 06:59 18:59 Intake Total 1500 Output Total 1200 600 150 Balance 300 -600 -150 Weight 61.235 kg Intake: IV 1500 Output: Urine 1000 600 150 Uretheral (Zhong) 300 Estimated Blood Loss 200 Other: Voiding Method Urinal Urinal # Voids 2 7 - Exam Constitutional: No acute distress, on room air HEENT: Pupils equally reactive to light, atraumatic, normocephalic. Lungs: Clear to auscultation bilaterally, no wheezing, no crackles Cardiovascular: RRR, S1-S2 normal, no murmur, no peripheral edema Abdominal: Soft, nontender, no guarding, rebound or rigidity Extremities: No cyanosis or clubbing, RLE dressings Neuro: No focal neurological signs alert - Labs CBC & Chem 7: 07/06/21 10:53 07/06/21 11:10 Assessment and Plan (1) Right tibial fracture Current Visit: Yes Status: Acute Code(s): S82.201A - UNSP FRACTURE OF SHAFT OF RIGHT TIBIA, INIT FOR CLOS FX SNOMED Code(s): 71987090 Plan: Right lower extremity fracture -Patient is postop day #1 from a ORIF. -Nonweight bearing activity in splint currently until his boot arrives. Patient activity status will be changed to WBAT in a boot -Anticipated discharge back to rehab facility Seizure disorder - Continue Depakote and Vimpat - Continue Keppra and phenytoin Cognitive impairment - Continue supportive care. Thrombocytopenia - No evidence of active bleeding. -Continue to monitor Depression -Continue Lexapro BPH - Continue Flomax GI DVT prophylaxis: Heparin subcu, SCDs Disposition: Anticipate patient to be discharged back home in the next 1-2 days back to skilled nursing, will check a.m. labs
[2021-07-08] MEDS: DESMOPRESSIN 0.2 MG TAB PO SCH (20:37)
[2021-07-08] MEDS: ESCITALOPRAM 10 MG TAB PO SCH (20:37)
[2021-07-09] MEDS: HEPARIN SODIUM,PORCINE/PF 5,000 UNIT/0.5 ML SYRINGE SQ SCH ×3 (06:30→22:42)
[2021-07-09] MEDS: LACOSAMIDE 50 MG TABLET PO SCH (08:25)
[2021-07-09] MEDS: PHENYTOIN SODIUM EXTENDED 100 MG CAP PO SCH (08:25)
[2021-07-09] MEDS: DIVALPROEX 500 MG TABLET.DR PO SCH ×3 (08:25→20:09)
[2021-07-09] MEDS: ASPIRIN 81 MG PO SCH (08:25)
[2021-07-09] MEDS: TAMSULOSIN 0.4 MG CAP.ER.24H PO SCH (08:25)
[2021-07-09] MEDS: levETIRAcetam 250 MG TAB PO SCH ×2 (08:26→20:09)
[2021-07-09] MEDS: SODIUM CHLORIDE 0.9% 1,000 ML IV SCH (08:27)
[2021-07-09] MEDS: LACTATED RINGERS 1,000 ML IV SCH ×2 (08:28)
[2021-07-09 09:16] LABS: African American GFR (CKD) 102.5 (60.0-200.0); BUN/Creat Ratio 12.57 Ratio (12.00-20.00); Blood Urea Nitrogen 11.6 mg/dL (9.0-27.0); Calcium 8.1 mg/dL (8.7-10.3); Carbon Dioxide 24.8 mmol/L (20.0-27.5); Non-African American GFR(CKD) 88.5 (60.0-200.0); Potassium 4.3 mmol/L (3.5-5.5)
[2021-07-09 09:21] LABS: Basophils # (A) 0.02 X 10*3/uL (0.00-0.10); Basophils % (A) 0.3 %; Eosinophils # (A) 0.01 X 10*3/uL (0.04-0.35); Eosinophils % (A) 0.1 %; HCT 29.4 % (39.6-50.0); HGB 9.4 g/dL (13.0-17.0); Immature Grans, Automated 0.4 %; Lymphocytes # (A) 1.34 X 10*3/uL (0.90-5.00); Lymphocytes % (A) 17.5 %; MCH 29.4 pg (27.0-32.0); MCV 91.9 fL (80.0-97.0); Mean Platelet Volume 11.7 fL (9.5-12.2); Monocytes # (A) 1.31 X 10*3/uL (0.20-1.00); Monocytes % (A) 17.1 %; NRBC Per 100 WBC 0 /100 WBCS (0.0-0.0); Neutrophils # (A) 4.96 X 10*3/uL (1.80-7.70); Neutrophils % (A) 64.6 %; Platelet Count 131 X 10*3/uL (140-440); RDW 15.3 % (11.5-14.5); WBC 7.67 X 10*3/uL (4.50-10.00)
--- NOTE | 2021-07-09 09:24 | P.PN ---
Subjective Progress Note Date: 07/09/21 Principal diagnosis: RLE pain Patient seen and examined at bedside. He seems to be relaxed, pain associated grimacing with movement of right lower extremity. Patient is able to follow commands with repeated requests. He is able to wiggle toes on right lower extremity. Maintain right lower extremity elevated on at least 2 pillows with ice packs to decrease swelling and assist with pain management. Patient has been afebrile, no nausea/vomiting, or chest pain. Objective - Vital Signs Vital signs: Vital Signs Temp 97.8 F 07/09/21 07:36 Pulse 68 07/09/21 07:36 Resp 16 07/09/21 07:36 BP 122/82 07/09/21 07:36 Pulse Ox 99 07/09/21 07:36 FiO2 Intake & Output 07/08/21 07/09/21 07/09/21 18:59 06:59 18:59 Output Total 150 600 200 Balance -150 -600 -200 Output: Urine 150 600 200 Other: Voiding Method Urinal Urinal Urinal - Exam Physical Examination General: The patient is awake and alert, in no acute distress Skin: Skin is warm and dry with no obvious rashes or lesions. Hairy patches absent, no dorsal skin dimples, no cafe au lait spots, surgical incisions to RLE , short splint intact. Eye: Pupils are equal, round and reactive to light, extra-ocular movements are intact; there is normal conjunctiva bilaterally. Neck: The neck is supple, there is no tenderness and ROM intact. Cardiovascular: There is a regular rate and rhythm. No murmur, rub or gallop is appreciated, +1 edema noted to RLE. Respiratory: Lungs are clear to auscultation, respirations are non-labored, breath sounds are equal. Gastrointestinal: Soft, non-distended, non-tender abdomen Musculoskeletal: ROM limited in right lower extremity due to fracture. FROM, 5/5 in all other major muscle groups. Neurological: CN 2-12 intact. There are no obvious motor or sensory deficits. Movement and coordination equal and intact. Sensory exam to light touch intact C5-T1 and intact from L2-S1. Reflexes 2/4 in bilateral upper and lower extremities. Negative Hoffmans, babinski, and clonus signs. Psychiatric: Cooperative, appropriate mood & affect, normal judgment. - Labs CBC & Chem 7: 07/06/21 10:53 07/06/21 11:10 Assessment and Plan Assessment: Assessment: Postop day 2: Open reduction with Intramedullary nail fixation of right tibia 1. Rt tibial shaft fracture, distal 1/3 spiral, displaced, closed 2. Rt proximal fibular shaft fracture 3. s/p ffs 4. debility related to developmental disorder Plan: Plan: -Appreciate nursing consultant and team management. -Activity: Ambulate QID, OOB all meals, up and about, limit lifting bending twisting to less than 5 lbs. Use walker for stability. -Daily PT/OT, increase ambulation strength and balance. -Walking boot has been ordered. -Pain control: Adequate at this time -Meds: reviewed -GI ppx: senna, Miralax -DVT PPX: Heparin -Hygiene: May shower. Keep Short Splint Dry. Maintain dressing clean and dry. -Encourage IS 10x/hr -Dispo: Anticipate discharge to [facility] within 48hrs. *I reviewed and discussed this case with my attending Dr. Salgado, whom has reviewed this chart and films and is in agreement with assessment and plan of care as outlined above. I have personally seen and examined the patient, performed the documentation and the assessment and plan as written. Number of minutes spent on the visit: 20m.
--- NOTE | 2021-07-09 12:35 | P.PN ---
Subjective Progress Note Date: 07/09/21 Principal diagnosis: Right lower extremity fracture Interval history: The patient is a 61-year-old male, resident of an adult foster care, who was sent to the emergency room from the orthopedic surgeons clinic due to right lower extremity pain. The patient is a poor historian, easily distracted, and hard to reorient. He notes falling as he was trying to get into a van 3 days ago. Reports ongoing right leg pain since then. The patient was noted to have a spiral distal tibial shaft fracture and a proximal fibular displaced fracture. The patient was placed in the splint and was sent home. He however presented to the orthopedic surgery clinic with severe pain, at which time he was directed to the emergency room. The patient reports using some sort of a cane at baseline, although would not elaborate further on the exact type of device. Patient was found to have a right tibial pulse shaft fracture, distal one third spiral, displaced closed fracture. Patient underwent ORIF on 07/07/2021 07/09/2021: Patient seen and examined today. No acute complaints. Patient does have baseline cognitive impairment and history is limited due to patient's verbal responses. Discussed with nursing staff no acute issues reported. Patient is stable for discharge however is waiting for boot and then needs to go to subacute rehab Objective - Vital Signs Vital signs: Vital Signs Temp 97.8 F 07/09/21 07:36 Pulse 68 07/09/21 07:36 Resp 16 07/09/21 07:36 BP 122/82 07/09/21 07:36 Pulse Ox 99 07/09/21 07:36 FiO2 Intake & Output 07/08/21 07/09/21 07/09/21 18:59 06:59 18:59 Output Total 150 600 200 Balance -150 -600 -200 Output: Urine 150 600 200 Other: Voiding Method Urinal Urinal Urinal - Labs CBC & Chem 7: 07/09/21 05:00 07/09/21 05:00 Labs: Abnormal Lab Results - Last 24 Hours (Table) 07/09/21 07/09/21 Range/Units 05:00 05:00 RBC 3.20 L (4.40-5.60) X 10*6/uL Hgb 9.4 L (13.0-17.0) g/dL Hct 29.4 L (39.6-50.0) % RDW 15.3 H (11.5-14.5) % Plt Count 131 L (140-440) X 10*3/uL Monocytes # 1.31 H (0.20-1.00) X 10*3/uL Eosinophils # 0.01 L (0.04-0.35) X 10*3/uL Calcium 8.1 L (8.7-10.3) mg/dL Assessment and Plan (1) Right tibial fracture Current Visit: Yes Status: Acute Code(s): S82.201A - UNSP FRACTURE OF SHAFT OF RIGHT TIBIA, INIT FOR CLOS FX SNOMED Code(s): 30298955 Plan: Right lower extremity fracture -Patient is postop day #2 from a ORIF. -Nonweight bearing activity in splint currently until his boot arrives. Patient activity status will be changed to WBAT in a boot -Anticipated discharge back to rehab facility Seizure disorder - Continue Depakote and Vimpat - Continue Keppra and phenytoin Cognitive impairment - Continue supportive care. -Patient's baseline mentation Thrombocytopenia - No evidence of active bleeding. -Improved stable Anemia -Patient's hemoglobin has down trended to 9.4 from 12.6 there is no signs of act patricia bleeding. We'll continue to monitor -Transfuse for hemoglobin less than 7 Depression -Continue Lexapro BPH - Continue Flomax GI DVT prophylaxis: Heparin subcu, SCDs Disposition: Patient is stable for discharge. Patient needs a boot. Patient will need to be discharged to subacute rehab. Case management to arrange.
[2021-07-09] MEDS: ESCITALOPRAM 10 MG TAB PO SCH (20:09)
[2021-07-09] MEDS: DESMOPRESSIN 0.2 MG TAB PO SCH (20:09)
[2021-07-10] MEDS: HEPARIN SODIUM,PORCINE/PF 5,000 UNIT/0.5 ML SYRINGE SQ SCH ×3 (06:28→22:05)
[2021-07-10] MEDS: ASPIRIN 81 MG PO SCH (07:01)
[2021-07-10] MEDS: DIVALPROEX 500 MG TABLET.DR PO SCH ×3 (07:01→19:48)
[2021-07-10] MEDS: TAMSULOSIN 0.4 MG CAP.ER.24H PO SCH (07:01)
[2021-07-10] MEDS: LACOSAMIDE 50 MG TABLET PO SCH (07:01)
[2021-07-10] MEDS: levETIRAcetam 250 MG TAB PO SCH ×2 (07:03→19:48)
[2021-07-10] MEDS: PHENYTOIN SODIUM EXTENDED 100 MG CAP PO SCH (07:04)
[2021-07-10] MEDS: LACTATED RINGERS 1,000 ML IV SCH ×2 (08:48→14:40)
[2021-07-10] MEDS: SODIUM CHLORIDE 0.9% 1,000 ML IV SCH (10:07)
[2021-07-10 10:53] LABS: Basophils # (A) 0.02 X 10*3/uL (0.00-0.10); Basophils % (A) 0.3 %; Eosinophils # (A) 0.02 X 10*3/uL (0.04-0.35); Eosinophils % (A) 0.3 %; HCT 27.1 % (39.6-50.0); HGB 8.9 g/dL (13.0-17.0); Immature Grans, Automated 0.4 %; Lymphocytes # (A) 1.19 X 10*3/uL (0.90-5.00); Lymphocytes % (A) 16.7 %; MCH 30.2 pg (27.0-32.0); MCHC 32.8 g/dL (32.0-37.0); MCV 91.9 fL (80.0-97.0); Mean Platelet Volume 11.1 fL (9.5-12.2); Monocytes # (A) 1.07 X 10*3/uL (0.20-1.00); NRBC Per 100 WBC 0 /100 WBCS (0.0-0.0); Neutrophils # (A) 4.78 X 10*3/uL (1.80-7.70); Neutrophils % (A) 67.3 %; Platelet Count 133 X 10*3/uL (140-440); RBC 2.95 X 10*6/uL (4.40-5.60); RDW 15.3 % (11.5-14.5); WBC 7.11 X 10*3/uL (4.50-10.00)
--- NOTE | 2021-07-10 11:09 | P.PN ---
Subjective Patient was examined at bedside by complaining of any new symptomatology Case discussed with RN. Objective - Vital Signs Vital signs: Vital Signs Temp 98.9 F 07/10/21 07:28 Pulse 51 L 07/10/21 07:28 Resp 19 07/10/21 07:28 BP 114/68 07/10/21 07:28 Pulse Ox 99 07/10/21 07:28 FiO2 Intake & Output 07/09/21 07/10/21 07/10/21 18:59 06:59 18:59 Output Total 500 500 425 Balance -500 -500 -425 Output: Urine 500 500 425 Other: Voiding Method Urinal Urinal Urinal - Exam Constitutional: No acute distress, on room air HEENT: Pupils equally reactive to light, atraumatic, normocephalic. Lungs: Clear to auscultation bilaterally, no wheezing, no crackles Cardiovascular: RRR, S1-S2 normal, no murmur, no peripheral edema Abdominal: Soft, nontender, no guarding, rebound or rigidity Extremities: No cyanosis or clubbing, RLE dressings Neuro: No focal neurological signs alert - Labs CBC & Chem 7: 07/10/21 04:15 07/09/21 05:00 Labs: Abnormal Lab Results - Last 24 Hours (Table) 07/10/21 Range/Units 04:15 RBC 2.95 L (4.40-5.60) X 10*6/uL Hgb 8.9 L (13.0-17.0) g/dL Hct 27.1 L (39.6-50.0) % RDW 15.3 H (11.5-14.5) % Plt Count 133 L (140-440) X 10*3/uL Monocytes # 1.07 H (0.20-1.00) X 10*3/uL Eosinophils # 0.02 L (0.04-0.35) X 10*3/uL Assessment and Plan Assessment: Right lower extremity fracture -Patient is postop day #1 from a ORIF. -Nonweight bearing activity in splint currently until his boot arrives. Patient activity status will be changed to WBAT in a boot -Anticipated discharge back to rehab facility Seizure disorder - Continue Depakote and Vimpat - Continue Keppra and phenytoin Cognitive impairment - Continue supportive care. Thrombocytopenia - No evidence of active bleeding. -Continue to monitor Depression -Continue Lexapro BPH - Continue Flomax GI DVT prophylaxis: Heparin subcu, SCDs Disposition: Anticipate patient to be discharged back home in the next 1-2 days back to [facility]
--- NOTE | 2021-07-10 11:45 | P.PN ---
Subjective Progress Note Date: 07/10/21 Pt s/e no issues. Has not been up much needs PT and to be up in chair and about. Awaiting boot delivery. No other issues. Objective - Vital Signs Vital signs: Vital Signs Temp 98.9 F 07/10/21 07:28 Pulse 51 L 07/10/21 07:28 Resp 19 07/10/21 07:28 BP 114/68 07/10/21 07:28 Pulse Ox 99 07/10/21 07:28 FiO2 Intake & Output 07/09/21 07/10/21 07/10/21 18:59 06:59 18:59 Output Total 500 500 425 Balance -500 -500 -425 Output: Urine 500 500 425 Other: Voiding Method Urinal Urinal Urinal - Exam Exam repeated. No significant changes. AOX2-3, essentially non verbal but will state yes and no to questions NAD NTTP RLE Splint in place CDI Wiggles toes Cap refill brisk all toes RLE Compartments soft compressive SILT L2-S1 - Labs CBC & Chem 7: 07/10/21 04:15 07/09/21 05:00 Assessment and Plan Assessment: 61 yo male s/p Rt tibial IMN 1. Rt tibial shaft fracture, distal 1/3 spiral, displaced, closed 2. Rt proximal fibular shaft fracture 3. s/p ffs 4. debility related to developmental disorder Plan: -NWB in splint until boot arrives then we will change to boot and pt can be WBAT in boot -ICE and elevation of RLE for swelling control -Compartment and NV checks q shift -GI/DVT ppx, TEDs SCDs, Heparin -ABX post op -Medical management -Anticipate Rehab tomorrow
[2021-07-10] MEDS: ESCITALOPRAM 10 MG TAB PO SCH (19:48)
[2021-07-10] MEDS: DESMOPRESSIN 0.2 MG TAB PO SCH (19:48)
[2021-07-11] MEDS: HEPARIN SODIUM,PORCINE/PF 5,000 UNIT/0.5 ML SYRINGE SQ SCH ×2 (05:29→15:54)
[2021-07-11] MEDS: DIVALPROEX 500 MG TABLET.DR PO SCH ×2 (06:04→15:54)
[2021-07-11] MEDS: ASPIRIN 81 MG PO SCH (06:05)
[2021-07-11] MEDS: LACOSAMIDE 50 MG TABLET PO SCH (06:05)
[2021-07-11] MEDS: TAMSULOSIN 0.4 MG CAP.ER.24H PO SCH (06:05)
[2021-07-11] MEDS: PHENYTOIN SODIUM EXTENDED 100 MG CAP PO SCH (06:05)
[2021-07-11] MEDS: levETIRAcetam 250 MG TAB PO SCH (06:05)
[2021-07-11 07:00] VITALS: RESP 18
--- NOTE | 2021-07-11 08:07 | P.PN ---
Subjective Progress Note Date: 07/11/21 Principal diagnosis: RLE pain Patient seen and examined at bedside. He is more awake this morning and expressing that he is feeling good. Patient is able to follow commands. He is able to wiggle toes on right lower extremity. We are still awaiting delivery on walking boot. Patient has been afebrile, no nausea/vomiting, or chest pain. Objective - Vital Signs Vital signs: Vital Signs Temp 97.6 F 07/11/21 07:00 Pulse 54 L 07/11/21 07:00 Resp 18 07/11/21 07:00 BP 111/63 07/11/21 07:00 Pulse Ox 99 07/11/21 07:00 FiO2 Intake & Output 07/10/21 07/11/21 07/11/21 18:59 06:59 18:59 Intake Total 500 Output Total 625 200 Balance -125 -200 Intake: Oral 500 Output: Urine 625 200 Other: Voiding Method Urinal Urinal - Exam Physical Examination General: The patient is awake and alert, in no acute distress Skin: Skin is warm and dry with no obvious rashes or lesions. Hairy patches absent, no dorsal skin dimples, no cafe au lait spots, surgical incisions to RLE, short splint intact. Eye: Pupils are equal, round and reactive to light, extra-ocular movements are intact; there is normal conjunctiva bilaterally. Neck: The neck is supple, there is no tenderness and ROM intact. Cardiovascular: There is a regular rate and rhythm. No murmur, rub or gallop is appreciated, +1 edema noted to RLE. Respiratory: Lungs are clear to auscultation, respirations are non-labored, breath sounds are equal. Gastrointestinal: Soft, non-distended, non-tender abdomen Musculoskeletal: ROM limited in right lower extremity due to fracture. FROM, 5/5 in all other major muscle groups. Neurological: CN 2-12 intact. There are no obvious motor or sensory deficits. Movement and coordination equal and intact. Sensory exam to light touch intact C5-T1 and intact from L2-S1. Reflexes 2/4 in bilateral upper and lower extremities. Negative Hoffmans, babinski, and clonus signs. Psychiatric: Cooperative, appropriate mood & affect, normal judgment. - Labs CBC & Chem 7: 07/10/21 04:15 07/09/21 05:00 Labs: Abnormal Lab Results - Last 24 Hours (Table) 07/10/21 Range/Units 04:15 RBC 2.95 L (4.40-5.60) X 10*6/uL Hgb 8.9 L (13.0-17.0) g/dL Hct 27.1 L (39.6-50.0) % RDW 15.3 H (11.5-14.5) % Plt Count 133 L (140-440) X 10*3/uL Monocytes # 1.07 H (0.20-1.00) X 10*3/uL Eosinophils # 0.02 L (0.04-0.35) X 10*3/uL Assessment and Plan Assessment: Assessment: Postop day 4: Open reduction with Intramedullary nail fixation of right tibia 1. Rt tibial shaft fracture, distal 1/3 spiral, displaced, closed 2. Rt proximal fibular shaft fracture 3. s/p ffs 4. debility related to developmental disorder Plan: Plan: -Appreciate center lead consultant and team management. -Activity: Ambulate QID, OOB all meals, up and about, limit lifting bending twisting to less than 5 lbs. Use walker for stability. -Daily PT/OT, increase ambulation strength and balance. -Walking boot has been ordered, still awaiting delivery -Pain control: Adequate at this time -Meds: reviewed -GI ppx: senna, Miralax -DVT PPX: Heparin -Hygiene: May shower. Keep Short Splint Dry. Maintain dressing clean and dry. -Encourage IS 10x/hr -Dispo: Anticipate discharge to [facility] within 24hrs. *I reviewed and discussed this case with my attending Dr. Salgado, whom has reviewed this chart and films and is in agreement with assessment and plan of care as outlined above. I have personally seen and examined the patient, performed the documentation and the assessment and plan as written. Number of minutes spent on the visit: 20m.
[2021-07-11] MEDS: LACTATED RINGERS 1,000 ML IV SCH (11:00)
[2021-07-11] MEDS: SODIUM CHLORIDE 0.9% 1,000 ML IV SCH (11:01)
[2021-07-11 13:37] VITALS: BP 107/64; PULSE 60; TEMP 98.4
--- NOTE | 2021-07-11 15:26 | P.DS ---
Providers Date of admission: 07/06/21 10:51 Expected date of discharge: 07/11/21 Attending physician: Aki Salgado DO Consults: 07/06/21 10:53 Consult Physician Routine Consulting Provider: Babak Orourke Reason/Comments: clearance for OR 07/07, medical management Do you want consulting provider notified?: Yes Primary care physician: Chris Quiroga [facility] Course: Hospital Course: The patient was evaluated preoperatively and found to have the diagnosis of right tibia fracture. They underwent appropriate preoperative care and were willing to undergo the intended procedure. They underwent a successful right tibia intramedullary nailing fixation, were recovered appropriately and sent to the floor. While on the floor they worked with physical therapy, occupational therapy and nursing to enhance their recovery experience. Their pain was well controlled through their stay and they were started on appropriate medications, DVT ppx modalities, activity and dietary needs. Daily labs were monitored closely, and transfusions were only used when necessary. Medicine as well as other consulting services have made their input and have helped with our team approach and multidisciplinary care. PT milestones have been met and passed and they have made the recommendation of subacute rehab for this patient and treating providers agree with this care path. The patient will be discharged home with appropriate medications, instructions and follow-up information and in stable condition. Patient Condition at Discharge: Good Plan - Discharge Summary Discharge Rx Participant: No New Discharge Prescriptions: New cefaDROXiL [Duricef] 500 mg PO Q12HR 5 Days #10 cap HYDROcodone/APAP 5-325MG [[place] 5-325] 1 tab PO Q6HR PRN #56 tab PRN Reason: Pain Ferrous Sulfate [Iron (65 MG Elemental)] 325 mg PO BID-W/MEALS tab Continue Desmopressin Acetate 0.4 mg PO HS@1999 Lacosamide [Vimpat] 50 mg PO DAILY@0700 Aspirin EC [Ecotrin Low Dose] 81 mg PO DAILY@0700 Phenytoin Chew [Dilantin Chew] 50 mg PO DAILY@1600 Tamsulosin HCl [Flomax] 0.4 mg PO DAILY@0700 Cholecalciferol (Vitamin D3) [Vitamin D3 (125 MCG = 5,000 IU)] 125 mcg PO DAILY@0700 levETIRAcetam [Keppra] 250 mg PO BID@0700,1999 Escitalopram [Lexapro] 10 mg PO HS@1999 Phenytoin Sodium Extended [Dilantin] 100 mg PO DAILY@699 Iloperidone [Fanapt] 4 mg PO BID@ Divalproex [Depakote] 1,000 mg PO TID@699, clonazePAM [KlonoPIN] 0.5 mg PO HS@1999 #3 tab Discharge Medication List Desmopressin Acetate 0.4 mg PO HS@199907/13/15 [History] Aspirin EC [Ecotrin Low Dose] 81 mg PO DAILY@69910/05/16 [History] Lacosamide [Vimpat] 50 mg PO DAILY@69910/05/16 [History] Escitalopram [Lexapro] 10 mg PO HS@199910/20/20 [History] Iloperidone [Fanapt] 4 mg PO BID@699,199910/20/20 [History] Phenytoin Chew [Dilantin Chew] 50 mg PO DAILY@159910/20/20 [History] Phenytoin Sodium Extended [Dilantin] 100 mg PO DAILY@69910/20/20 [History] Divalproex [Depakote] 1,000 mg PO TID@699,1599,199911/25/20 [History] Cholecalciferol (Vitamin D3) [Vitamin D3 (125 MCG = 5,000 IU)] 125 mcg PO DAILY@69906/17/21 [History] Tamsulosin HCl [Flomax] 0.4 mg PO DAILY@69906/17/21 [History] levETIRAcetam [Keppra] 250 mg PO BID@699,199906/17/21 [History] Ferrous Sulfate [Iron (65 MG Elemental)] 325 mg PO BID-W/MEALS tab 07/11/21 [Rx] HYDROcodone/APAP 5-325MG [[place] 5-325] 1 tab PO Q6HR PRN #56 tab 07/11/21 [Rx] cefaDROXiL [Duricef] 500 mg PO Q12HR 5 Days #10 cap 07/11/21 [Rx] clonazePAM [KlonoPIN] 0.5 mg PO HS@1999 #3 tab 07/11/21 [Rx] Follow up Appointment(s)/Referral(s): Chris Quiroga MD [Primary Care Provider] - 1 Week Aki Salgado DO [Doctor of Osteopathic Medicine] - 2 Weeks Patient Instructions/Handouts: Leg Fracture (DC), ORIF of a Leg Fracture (DC) Discharge Disposition: TRANSFER TO SNF/ECF
--- NOTE | 2021-07-11 16:19 | P.PN ---
Progress Note - Text Progress Note Date: 07/11/21 Hospital course: Patient had a slip and fall. Seen in the ER on July 04. July 07: Open reduction with IM nail fixation of the right tibia and short leg splint application right lower extremity. By Dr. Salgado July 11: I assumed care of the patient today. Sitting up in a chair. Comfortable. Oral intake variable. Pain control. Active Medications Acetaminophen (Acetaminophen Tab 325 Mg Tab) 650 mg PO Q6HR PRN PRN Reason: Mild Pain or Fever > 100.5 Last Admin: 07/09/21 20:09 Dose: 650 mg Hydrocodone Bitart/Acetaminophen (Hydrocodone/Apap 5-325mg 1 Each Tab) 1 each PO Q4HR PRN PRN Reason: Moderate Pain Last Admin: 07/07/21 21:58 Dose: 1 each Aspirin (Aspirin 81 Mg) 81 mg PO DAILY@0700 [facility] Last Admin: 07/11/21 06:05 Dose: 81 mg Benzocaine/Menthol (Benzocaine/Menthol Lozeng 1 Each Lozenge) 1 each MUCOUS MEM Q4HR PRN PRN Reason: Sore Throat Desmopressin Acetate (Desmopressin 0.2 Mg Tab) 0.4 mg PO HS@1999 [facility] Last Admin: 07/10/21 19:48 Dose: 0.4 mg Divalproex Sodium (Divalproex 500 Mg Tablet.Dr) 1,000 mg PO TID@0700,1600,1999 [facility] Last Admin: 07/11/21 15:54 Dose: 1,000 mg Docusate Sodium (Docusate 100 Mg Cap) 100 mg PO BID PRN PRN Reason: Constipation Escitalopram Oxalate (Escitalopram 10 Mg Tab) 10 mg PO HS@1999 [facility] Last Admin: 07/10/21 19:48 Dose: 10 mg Ferrous Sulfate (Ferrous Sulfate 325 Mg Tab) 325 mg PO BID-W/MEALS [facility] Last Admin: 07/11/21 15:54 Dose: 325 mg Heparin Sodium (Porcine) (Heparin Sodium,Porcine/Pf 5,000 Unit/0.5 Ml Syringe) 5,000 unit SQ Q8H [facility] Stop: 08/06/21 22:01 Last Admin: 07/11/21 15:54 Dose: 5,000 unit Hydromorphone HCl (Hydromorphone 0.5 Mg/0.5 Ml Syringe) 0.5 mg IVP Q3HR PRN PRN Reason: Pain Sodium Chloride (Saline 0.9%) 1,000 mls @ 20 mls/hr IV .Q24H [facility] Last Admin: 07/11/21 11:01 Dose: Not Given Lactated Ringer's (Lactated Ringers) 1,000 mls @ 20 mls/hr IV .Q24H [facility] Last Admin: 07/11/21 11:00 Dose: Not Given Cefazolin Sodium 2 gm/ Sodium (Chloride) 50 mls @ 100 mls/hr IVPB Q8HR [facility]; Protocol Last Admin: 07/11/21 07:00 Dose: 100 mls/hr Lacosamide (Lacosamide 50 Mg Tablet) 50 mg PO DAILY@07 [facility] Last Admin: 07/11/21 06:05 Dose: 50 mg Levetiracetam (Levetiracetam 250 Mg Tab) 250 mg PO BID@07,1999 [facility] Last Admin: 07/11/21 06:05 Dose: 250 mg Naloxone HCl (Naloxone 0.4 Mg/Ml 1 Ml Vial) 0.2 mg IV Q2M PRN PRN Reason: Opioid Reversal Ondansetron HCl (Ondansetron 4 Mg/2 Ml Vial) 4 mg IVP Q8HR PRN PRN Reason: Nausea And Vomiting Phenytoin Sodium (Phenytoin Sodium Extended 100 Mg Cap) 100 mg PO DAILY@07 [facility] Last Admin: 07/11/21 06:05 Dose: 100 mg Tamsulosin HCl (Tamsulosin 0.4 Mg Cap.Er.24h) 0.4 mg PO DAILY@07 [facility] Last Admin: 07/11/21 06:05 Dose: 0.4 mg On examination: VITAL SIGNS: [98.4, 60, 18, 10 7 x 64, 98% room air] GENERAL APPEARANCE: Sitting up in a chair, awake HEENT: Normal external appearance of nose and ear. Oral cavity normal EYES: Pupils equal. Conjunctiva normal. NECK: JVD not raised. Mass not palpable. RESPIRATORY: Respiratory effort normal. Lungs clear to auscultation. CARDIOVASCULAR: First and second sounds normal. No edema. ABDOMEN: Soft. Liver and spleen not palpable. No tenderness. No mass palpable. PSYCHIATRY: Answering simple questions MUSCULAR skeletal: Right leg in with a dressing and support INVESTIGATIONS, reviewed in the clinical context: White count 7.1 hemoglobin 8.9 platelets 133 potassium 4.3 creatinine 0.9 Admission hemoglobin: 12.6 Assessment and plan: -Open reduction with IM nail fixation of the right tibia and short leg splint application right lower extremity. By Dr. Salgado -Seizure disorder vimpat 50 mg daily Dilantin 100 mg in the morning and 50 mg midafternoon. Keppra 25 mg twice a day -Developmental delay -Depression Lexapro 10 mg daily at bedtime -Chronic nicotine dependence, cigarette smoker Nicotine patch 14 mg -Acute postprocedure blood loss anemia expected from surgery Start ferrous sulfate Continue current medication treatment plan. Patient's pending discharge to rehab. Discussed with nurse.
[2021-07-11] MEDS ORDERED: NICOTINE 14MG/24HR PATCH TRANSDERM SCH (16:30)
[2021-07-11] MEDS ORDERED: FERROUS SULFATE 325 MG TAB PO SCH (17:30)
== END 2021-07-11 18:35 | DRG 494 ==
LOC: OR 09:44 → 4SSUR 10:51
PROVIDERS: ADMIT Orthopaedic Surgery; ATTEND Orthopaedic Surgery
PROC: 0QSG06Z Reposition Right Tibia with Intramedullary Internal Fixation Device, Open Approach (ICD-10-PCS; principal; 2021-07-07 12:00)
DX: S82.301A Unspecified fracture of lower end of right tibia, initial encounter for closed fracture (principal); D69.6 Thrombocytopenia, unspecified; D50.0 Iron deficiency anemia secondary to blood loss (chronic); F32.A Depression, unspecified; F89 Unspecified disorder of psychological development; F17.210 Nicotine dependence, cigarettes, uncomplicated; S82.831A Other fracture of upper and lower end of right fibula, initial encounter for closed fracture; G40.909 Epilepsy, unspecified, not intractable, without status epilepticus; K59.00 Constipation, unspecified; N40.0 Benign prostatic hyperplasia without lower urinary tract symptoms; R41.89 Other symptoms and signs involving cognitive functions and awareness; Z79.82 Long term (current) use of aspirin; Z79.899 Other long term (current) drug therapy; Z87.898 Personal history of other specified conditions; Z71.3 Dietary counseling and surveillance; W01.0XXA Fall on same level from slipping, tripping and stumbling without subsequent striking against object, initial encounter
CPT/HCPCS: 71045; 80048; 80053; 81001; 85025; 85610; 93005; 96360; 99284

== ENCOUNTER → 2022-01-01 | Outpatient (CLI) | payer OTHER ==
[2022-01-01 10:05] LABS: Mean Platelet Volume 10.2
[2022-01-01 10:29] LABS: Platelet Count 57 k/uL (150-450)
== END | disposition home or self-care (01) ==
LOC: LABWHC1 09:03
PROVIDERS: ATTEND Psychiatry & Neurology Neurology
DX: G40.209 Localization-related (focal) (partial) symptomatic epilepsy and epileptic syndromes with complex partial seizures, not intractable, without status epilepticus (principal)
CPT/HCPCS: 36415; 80164; 85049

== ENCOUNTER 2022-01-10 11:12 | Observation (INO) | payer OTHER ==
[2022-01-10] MEDS ORDERED: cefTRIAXone IN SWFI 1,000 MG/10 ML SYRINGE IVP STA (11:23)
[2022-01-10] MEDS ORDERED: ACETAMINOPHEN IV (For NPO) 1,000 MG in EMPTY BAG 1 BAG IVPB ONE (11:35)
[2022-01-10] MEDS ORDERED: IBUPROFEN IV 800 MG in SODIUM CHLORIDE 0.9% 250 ML IV ONE (11:50)
[2022-01-10] MEDS: SODIUM CHLORIDE 0.9% 500 ML 500 ML IV SCH ×3 (12:09→13:15)
[2022-01-10 12:11] LABS: Calcium 9.5 mg/dL (8.4-10.2); Potassium 4.5 mmol/L (3.5-5.1); Total Bilirubin 0.5 mg/dL (0.2-1.3); Total Protein 6.8 g/dL (6.3-8.2)
[2022-01-10 12:13] LABS: Anisocytosis Slight; Basophils % (A) 0 %; Eosinophils # (A) 0.1 k/uL (0-0.7); Eosinophils % (A) 1 %; HCT 42.4 % (39.0-53.0); Hypochromasia Slight; Lymphocytes # (A) 1.2 k/uL (1.0-4.8); Lymphocytes % (A) 13 %; MCH 30.7 pg (25.0-35.0); MCHC 32.9 g/dL (31.0-37.0); MCV 93.3 fL (80.0-100.0); Mean Platelet Volume 10.7; Monocytes % (A) 11 %; Neutrophils # (A) 6.6 k/uL (1.3-7.7); Neutrophils % (A) 74 %; RBC 4.55 m/uL (4.30-5.90); RDW 18.7 % (11.5-15.5)
[2022-01-10 12:15] LABS: Platelet Count 99 k/uL (150-450)
[2022-01-10 12:18] LABS: Appearance,Urine Clear (Clear); Bilirubin,Urine Negative (Negative); Blood,Urine Negative (Negative); Color,Urine Light Yellow; Glucose,Urine (UA) Negative (Negative); Ketones,Urine Negative (Negative); Leukocyte Esterase,Urine Negative (Negative); Nitrite,Urine Negative (Negative); Protein,Urine Negative (Negative); Specific Gravity,Urine 1.012 (1.001-1.035); Urobilinogen,Urine <2.0 mg/dL (<2.0)
[2022-01-10 12:20] LABS: INR 1.1 (<1.2); Prothrombin Time 11.7 sec (9.0-12.0)
[2022-01-10 12:24] LABS: Partial Thromboplastin Time 19.3 sec (22.0-30.0)
--- NOTE | 2022-01-10 13:38 | XR ---
EXAMINATION TYPE: XR chest 2V DATE OF EXAM: 01/10/2022 COMPARISON: 07/06/2021 HISTORY: Shortness of breath TECHNIQUE: Frontal and lateral views of the chest are obtained. FINDINGS: Scattered senescent parenchymal changes noted. Hyperinflation compatible with COPD. No evidence for infiltrate. No evidence for atelectasis. Heart size is stable. Mediastinal structures are stable and grossly unremarkable. No evidence for hilar prominence. Degenerative changes dorsal spine. IMPRESSION: 1. No evidence for acute pulmonary disease.
--- NOTE | 2022-01-10 14:41 | ED ---
General Adult HPI - General Chief complaint: Altered Mental Status Stated complaint: Altered LOC Time Seen by Provider: 01/10/22 11:15 Source: patient, EMS, RN notes reviewed, old records reviewed Mode of arrival: EMS Limitations: altered mental status - History of Present Illness Initial comments: This is a 61-year-old male who comes to us via EMS. Patient lives at a retirement and according to EMS the caregivers at school from say he is less respon sive and on a normal day comes down and eats breakfast and today he did not when she went in the room he was not acting at his baseline. Patient is unable to give any history except for the fact he denies any pain. There is no history of any fevers no history of any difficulty breathing there's no history of any trauma there is no history of any vomiting or diarrhea. - Related Data Home Medications Medication Instructions Recorded Confirmed Desmopressin Acetate 0.4 mg PO HS@199907/13/15 01/10/22 Aspirin EC [Ecotrin Low Dose] 81 mg PO DAILY@0800 10/05/16 01/10/22 Escitalopram [Lexapro] 10 mg PO HS@199910/20/20 01/10/22 Iloperidone [Fanapt] 4 mg PO BID@0800,199910/20/20 01/10/22 Divalproex [Depakote] 1,000 mg PO BID@0800,1600 11/25/20 01/10/22 Cholecalciferol (Vitamin D3) 125 mcg PO DAILY@0800 06/17/21 01/10/22 [Vitamin D3 (125 MCG = 5,000 IU)] levETIRAcetam [Keppra] 250 mg PO BID@0800,199906/17/21 01/10/22 Ferrous Sulfate [Iron (65 MG 325 mg PO BID@0800,199901/10/22 01/10/22 Elemental)] clonazePAM [KlonoPIN] 0.25 mg PO HS@199901/10/22 01/10/22 Allergies Allergy/AdvReac Type Severity Reaction Status Date / Time No Known Allergies Allergy Verified 01/10/22 13:10 Review of Systems ROS Statement: Those systems with pertinent positive or pertinent negative responses have been documented in the HPI. ROS Other: All systems not noted in ROS Statement are negative. Past Medical History Past Medical History: Prostate Disorder, Seizure Disorder Additional Past Medical History / Comment(s): epilepsy, developmentally delayed History of Any Multi-Drug Resistant Organisms: None Reported Past Surgical History: No Surgical Hx Reported Additional Past Surgical History / Comment(s): Only surgery known was plastic surgery due to ashley as a child. Past Anesthesia/Blood Transfusion Reactions: Unable to Obtain Past Psychological History: Depression Smoking Status: Current every day smoker Past Alcohol Use History: None Reported Past Drug Use History: None Reported - Past Family History Father History Unknown: Yes Family Medical History: Unable to Obtain Mother History Unknown: Yes Family Medical History: Unable to Obtain General Exam - General Exam Comments Initial Comments: GENERAL: Patient is well-developed and well-nourished. Patient is nontoxic and well- hydrated and patient only responds on occasion very simple commands. ENT: Neck is soft and supple. No significant lymphadenopathy is noted. Oropharynx is clear. Moist mucous membranes. Neck has full range of motion without eliciting any pain. EYES: The sclera were anicteric and conjunctiva were pink and moist. Extraocular movements were intact and pupils were equal round and reactive to light. Eyelids were unremarkable. PULMONARY: Unlabored respirations. Good breath sounds bilaterally. No audible rales rhonchi or wheezing was noted. CARDIOVASCULAR: There is a regular rate and rhythm without any murmurs gallops or rubs. ABDOMEN: Soft and nontender with normal bowel sounds. SKIN: Skin is clear with no lesions or rashes and otherwise unremarkable. NEUROLOGIC: Patient is alert and oriented 1. Cranial nerves II through XII are grossly intact. Motor and sensory are also intact. Patient only answers yes and no to questions on occasion MUSCULOSKELETAL: Normal extremities with adequate strength and full range of motion. LYMPHATICS: No significant lymphadenopathy is noted PSYCHIATRIC: Unable to assess Limitations: altered mental status Course Vital Signs 01/10/22 01/10/22 01/10/22 11:15 11:45 12:45 Temperature 101.3 F H 101.8 F H 98.7 F Pulse Rate 80 Respiratory 18 16 Rate Blood Pressure 122/68 121/72 O2 Sat by Pulse 100 Oximetry 01/10/22 13:26 Temperature Pulse Rate 66 Respiratory 18 Rate Blood Pressure 136/60 O2 Sat by Pulse 94 L Oximetry Procedures - Brent Protocol (Time Out) Nurse: Tejal Lind Medical Decision Making - Medical Decision Making When patient arrived I did a temperature patient had 101.9 temp. Patient was given off from of and I the Motrin and after that patient was reevaluated and was doing considerably better but when we spoke with the caregiver at the retirement she did not want him back Because she did not feel as though she could take care of him. I interpreted EKG showed a sinus tachycardia at 103 bpm DE interval 123 QRS is 70 QT interval 370 QTC is 366. Patient's EKG shows no ST segment elevation or depression. I interpreted the chest x-ray showed no acute abnormality I spoke with Dr. Orourke agreed to admit the patient admitted the patient wrote admitting orders. - Lab Data Result diagrams: 01/10/22 11:45 01/10/22 11:45 Lab Results 01/10/22 01/10/22 01/10/22 Range/Units 11:45 11:45 11:45 WBC 9.0 (3.8-10.6) k/uL RBC 4.55 (4.30-5.90) m/uL Hgb 14.0 (13.0-17.5) gm/dL Hct 42.4 (39.0-53.0) % MCV 93.3 (80.0-100.0) fL MCH 30.7 (25.0-35.0) pg MCHC 32.9 (31.0-37.0) g/dL RDW 18.7 H (11.5-15.5) % Plt Count 99 L D (150-450) k/uL MPV 10.7 Neutrophils % 74 % Lymphocytes % 13 % Monocytes % 11 % Eosinophils % 1 % Basophils % 0 % Neutrophils # 6.6 (1.3-7.7) k/uL Lymphocytes # 1.2 (1.0-4.8) k/uL Monocytes # 1.0 (0-1.0) k/uL Eosinophils # 0.1 (0-0.7) k/uL Basophils # 0.0 (0-0.2) k/uL Hypochromasia Slight Anisocytosis Slight PT 11.7 (9.0-12.0) sec INR 1.1 (<1.2) APTT 19.3 L (22.0-30.0) sec Sodium (137-145) mmol/L Potassium (3.5-5.1) mmol/L Chloride (98-107) mmol/L Carbon Dioxide (22-30) mmol/L Anion Gap mmol/L BUN (9-20) mg/dL Creatinine (0.66-1.25) mg/dL Est GFR (CKD-EPI)AfAm (>60 ml/min/1.73 sqM) Est GFR (CKD-EPI)NonAf (>60 ml/min/1.73 sqM) Glucose (74-99) mg/dL Lactic Ac Sepsis Rflx Plasma Lactic Acid Yobany (0.7-2.0) mmol/L Calcium (8.4-10.2) mg/dL Total Bilirubin (0.2-1.3) mg/dL AST (17-59) U/L ALT (4-49) U/L Alkaline Phosphatase (38-126) U/L Total Protein (6.3-8.2) g/dL Albumin (3.5-5.0) g/dL Urine Color Light Yellow Urine Appearance Clear (Clear) Urine pH 8.0 (5.0-8.0) Ur Specific Hustle 1.012 (1.001-1.035) Urine Protein Negative (Negative) Urine Glucose (UA) Negative (Negative) Urine Ketones Negative (Negative) Urine Blood Negative (Negative) Urine Nitrite Negative (Negative) Urine Bilirubin Negative (Negative) Urine Urobilinogen <2.0 (<2.0) mg/dL Ur Leukocyte Esterase Negative (Negative) Influenza Type A (PCR) (Not Detectd) Influenza Type B (PCR) (Not Detectd) RSV (PCR) (Not Detectd) SARS-CoV-2 (PCR) (Not Detectd) 01/10/22 01/10/22 01/10/22 Range/Units 11:45 11:45 12:08 WBC (3.8-10.6) k/uL RBC (4.30-5.90) m/uL Hgb (13.0-17.5) gm/dL Hct (39.0-53.0) % MCV (80.0-100.0) fL MCH (25.0-35.0) pg MCHC (31.0-37.0) g/dL RDW (11.5-15.5) % Plt Count (150-450) k/uL MPV Neutrophils % % Lymphocytes % % Monocytes % % Eosinophils % % Basophils % % Neutrophils # (1.3-7.7) k/uL Lymphocytes # (1.0-4.8) k/uL Monocytes # (0-1.0) k/uL Eosinophils # (0-0.7) k/uL Basophils # (0-0.2) k/uL Hypochromasia Anisocytosis PT (9.0-12.0) sec INR (<1.2) APTT (22.0-30.0) sec Sodium 141 (137-145) mmol/L Potassium 4.5 (3.5-5.1) mmol/L Chloride 110 H (98-107) mmol/L Carbon Dioxide 28 (22-30) mmol/L Anion Gap 3 mmol/L BUN 21 H (9-20) mg/dL Creatinine 1.55 H (0.66-1.25) mg/dL Est GFR (CKD-EPI)AfAm 55 (>60 ml/min/1.73 sqM) Est GFR (CKD-EPI)NonAf 47 (>60 ml/min/1.73 sqM) Glucose 91 (74-99) mg/dL Lactic Ac Sepsis Rflx Y Plasma Lactic Acid Yobany 2.1 H* (0.7-2.0) mmol/L Calcium 9.5 (8.4-10.2) mg/dL Total Bilirubin 0.5 (0.2-1.3) mg/dL AST 29 (17-59) U/L ALT 18 (4-49) U/L Alkaline Phosphatase 69 (38-126) U/L Total Protein 6.8 (6.3-8.2) g/dL Albumin 4.0 (3.5-5.0) g/dL Urine Color Urine Appearance (Clear) Urine pH (5.0-8.0) Ur Specific Hustle (1.001-1.035) Urine Protein (Negative) Urine Glucose (UA) (Negative) Urine Ketones (Negative) Urine Blood (Negative) Urine Nitrite (Negative) Urine Bilirubin (Negative) Urine Urobilinogen (<2.0) mg/dL Ur Leukocyte Esterase (Negative) Influenza Type A (PCR) (Not Detectd) Influenza Type B (PCR) (Not Detectd) RSV (PCR) (Not Detectd) SARS-CoV-2 (PCR) (Not Detectd) 01/10/22 Range/Units 12:10 WBC (3.8-10.6) k/uL RBC (4.30-5.90) m/uL Hgb (13.0-17.5) gm/dL Hct (39.0-53.0) % MCV (80.0-100.0) fL MCH (25.0-35.0) pg MCHC (31.0-37.0) g/dL RDW (11.5-15.5) % Plt Count (150-450) k/uL MPV Neutrophils % % Lymphocytes % % Monocytes % % Eosinophils % % Basophils % % Neutrophils # (1.3-7.7) k/uL Lymphocytes # (1.0-4.8) k/uL Monocytes # (0-1.0) k/uL Eosinophils # (0-0.7) k/uL Basophils # (0-0.2) k/uL Hypochromasia Anisocytosis PT (9.0-12.0) sec INR (<1.2) APTT (22.0-30.0) sec Sodium (137-145) mmol/L Potassium (3.5-5.1) mmol/L Chloride (98-107) mmol/L Carbon Dioxide (22-30) mmol/L Anion Gap mmol/L BUN (9-20) mg/dL Creatinine (0.66-1.25) mg/dL Est GFR (CKD-EPI)AfAm (>60 ml/min/1.73 sqM) Est GFR (CKD-EPI)NonAf (>60 ml/min/1.73 sqM) Glucose (74-99) mg/dL Lactic Ac Sepsis Rflx Plasma Lactic Acid Yobany (0.7-2.0) mmol/L Calcium (8.4-10.2) mg/dL Total Bilirubin (0.2-1.3) mg/dL AST (17-59) U/L ALT (4-49) U/L Alkaline Phosphatase (38-126) U/L Total Protein (6.3-8.2) g/dL Albumin (3.5-5.0) g/dL Urine Color Urine Appearance (Clear) Urine pH (5.0-8.0) Ur Specific Hustle (1.001-1.035) Urine Protein (Negative) Urine Glucose (UA) (Negative) Urine Ketones (Negative) Urine Blood (Negative) Urine Nitrite (Negative) Urine Bilirubin (Negative) Urine Urobilinogen (<2.0) mg/dL Ur Leukocyte Esterase (Negative) Influenza Type A (PCR) Not Detected (Not Detectd) Influenza Type B (PCR) Not Detected (Not Detectd) RSV (PCR) Not Detected (Not Detectd) SARS-CoV-2 (PCR) Not Detected (Not Detectd) Disposition Clinical Impression: Altered mental status, Febrile illness Disposition: ADMITTED IP TO THIS HOSP Referrals: Donovan Lara MD [Primary Care Provider] - 1-2 days Time of Disposition: 14:41
[2022-01-10] MEDS ORDERED: SODIUM CHLORIDE 0.9% 1,000 ML IV ONE (14:44)
[2022-01-10] MEDS: clonazePAM 0.5 MG TAB PO SCH (20:08)
[2022-01-10] MEDS: ESCITALOPRAM 10 MG TAB PO SCH (20:08)
[2022-01-10] MEDS: FERROUS SULFATE 325 MG TAB PO SCH (20:08)
[2022-01-10] MEDS: levETIRAcetam 250 MG TAB PO SCH (20:15)
[2022-01-10] MEDS: DESMOPRESSIN 0.2 MG TAB PO SCH (20:15)
[2022-01-10] MEDS: SODIUM CHLORIDE 0.9% 1,000 ML IV SCH (20:15)
[2022-01-10] MEDS: ILOPERIDONE 4 MG PO SCH (21:36)
--- NOTE | 2022-01-10 22:15 | P.HPIM ---
History of Present Illness H&P Date: 01/10/22 Chief Complaint: Altered mentation This is a 61-year-old patient who follows with visiting physicians Dr. Lara. Chronic stable medical conditions include prostate disorder, seizure disorder, developmental delay, depression. He lives at the [facility] home. Able to feed himself and needs some assistance with ADLs. Gait is slow does not use any device. He does work searches. Smoker. History of alcohol abuse not use at least 6 years. Patient is brought to the ER by EMS. According to staff he was less responsive and normally would come down and eat breakfast and today did not come down. When they went to his room he is not acting at his baseline. Patient himself is not able to give me any history. Often remaining quite. Then will speak a few words. Denies any pain. Denies any fever. Moving all his limbs. Noted to have a fever in the ER. No respiratory symptoms. Review of systems: Unable to obtain as patient really not communicating Past medical history to include: Seizure disorder, developmental delay, depression, chronic nicotine dependence, prostate disorder Social history: History of alcoholism in the past. At least over 6 years ago. Lives at [facility] home. Smokes about half a pack a day. Family history: Patient cannot tell Physical examination: VITAL SIGNS: 101.3, 18, 1 22 x 68, 100% room air GENERAL: BMI 18.2, laying in bed, awake appears a bit distant. EYES: Pupils equal. Conjunctiva normal. HEENT: External appearance of nose and ears normal, oral cavity grossly normal. NECK: JVD not raised; masses not palpable. HEART: First and second heart sounds are normal; no edema. LUNGS: Respiratory rate normal; decreased breath sounds. ABDOMEN: Soft, nontender, liver spleen not palpable, no masses palpable. PSYCH: Barely speaking then will speak suddenly a few words.l. MUSCULOSKELETAL:No Clubbing/cyanosis;muscles-grossly intact NEUROLOGICAL: Cranial nerves grossly intact; no facial asymmetry, power and se nsation grossly intact. LYMPHATICS: No lymph nodes palpable in the axilla and neck INVESTIGATIONS, reviewed in the clinical context: WBC 9 hemoglobin 14 platelets 99 sodium 141 BUN 21 creatinine 1.55 lactic acid 2.1 UA: Negative Influenza type A/diabetes/RSV/COVID-19: Not detected EKG tracing personally reviewed by me-sinus tachycardia. Nonspecific ST segment changes Chest x-ray film personally reviewed by me-borderline cardiomegaly. Possible chronic changes Previous labs: Creatinine 0.9 in June 2021 Assessment and plan: -Patient presents with decrease sensorium, fever.: Acute delirium -Patient has a fever, no respiratory symptoms, no urinary symptoms. No abdominal pain. No obvious source of infection. White count is normal. No left shift.: Possible viral syndrome Blood cultures done. Consult ID. hold antibiotics for now. -Acute kidney injury, possibly prerenal from decreased oral intake IV fluids. -Thrombocytopenia likely from underlying infection -Seizure disorder Depakote Keppra 250 mg twice a day -Developmental delay -Depression Lexapro 10 mg daily at bedtime fanapt -Chronic nicotine dependence, cigarette smoker Nicotine patch 14 mg IV fluids. Blood cultures. Consult ID. Resume home medications. Past Medical History Past Medical History: Prostate Disorder, Seizure Disorder Additional Past Medical History / Comment(s): epilepsy, developmentally delayed History of Any Multi-Drug Resistant Organisms: None Reported Past Surgical History: No Surgical Hx Reported Additional Past Surgical History / Comment(s): Only surgery known was plastic surgery due to ashley as a child. Past Anesthesia/Blood Transfusion Reactions: Unable to Obtain Past Psychological History: Depression Smoking Status: Current every day smoker Past Alcohol Use History: None Reported Past Drug Use History: None Reported - Past Family History Father History Unknown: Yes Family Medical History: Unable to Obtain Mother History Unknown: Yes Family Medical History: Unable to Obtain Medications and Allergies Home Medications Medication Instructions Recorded Confirmed Type Desmopressin Acetate 0.4 mg PO HS@199907/13/15 01/10/22 History Aspirin EC [Ecotrin Low Dose] 81 mg PO DAILY@0800 10/05/16 01/10/22 History Escitalopram [Lexapro] 10 mg PO HS@199910/20/20 01/10/22 History Iloperidone [Fanapt] 4 mg PO BID@10/20/20 01/10/22 History Divalproex [Depakote] 1,000 mg PO BID@0800,1600 11/25/20 01/10/22 History Cholecalciferol (Vitamin D3) 125 mcg PO DAILY@0800 06/17/21 01/10/22 History [Vitamin D3 (125 MCG = 5,000 IU)] levETIRAcetam [Keppra] 250 mg PO BID@799,199906/17/21 01/10/22 History Ferrous Sulfate [Iron (65 MG 325 mg PO BID@799,199901/10/22 01/10/22 History Elemental)] clonazePAM [KlonoPIN] 0.25 mg PO HS@199901/10/22 01/10/22 History Allergies Allergy/AdvReac Type Severity Reaction Status Date / Time No Known Allergies Allergy Verified 01/10/22 13:10 Physical Exam Vitals: Vital Signs Temp Pulse Resp BP Pulse Ox 01/10/22 18:55 98.0 F 56 L 18 130/83 99 01/10/22 18:00 59 L 18 106/74 98 01/10/22 16:00 62 16 124/80 97 01/10/22 15:00 82 16 128/56 98 01/10/22 14:00 56 L 16 115/90 98 01/10/22 13:26 66 18 136/60 94 L 01/10/22 12:45 98.7 F 80 16 121/72 100 01/10/22 11:45 101.8 F H 01/10/22 11:15 101.3 F H 18 122/68 Intake and Output 01/10/22 01/10/22 01/10/22 06:59 14:59 22:59 Other: Weight 54.431 kg Results CBC & Chem 7: 01/10/22 11:45 01/10/22 11:45 Labs: Abnormal Lab Results - Last 24 Hours (Table) 01/10/22 01/10/22 01/10/22 Range/Units 11:45 11:45 11:45 RDW 18.7 H (11.5-15.5) % Plt Count 99 L D (150-450) k/uL APTT 19.3 L (22.0-30.0) sec Chloride 110 H (98-107) mmol/L BUN 21 H (9-20) mg/dL Creatinine 1.55 H (0.66-1.25) mg/dL Plasma Lactic Acid Yobany (0.7-2.0) mmol/L 01/10/22 Range/Units 11:45 RDW (11.5-15.5) % Plt Count (150-450) k/uL APTT (22.0-30.0) sec Chloride (98-107) mmol/L BUN (9-20) mg/dL Creatinine (0.66-1.25) mg/dL Plasma Lactic Acid Yobany 2.1 H* (0.7-2.0) mmol/L
[2022-01-11] MEDS: SODIUM CHLORIDE 0.9% 1,000 ML IV SCH ×2 (04:44→19:22)
[2022-01-11 06:20] LABS: Anisocytosis Slight; Basophils % (A) 0 %; Eosinophils # (A) 0.1 k/uL (0-0.7); Eosinophils % (A) 1 %; HCT 36.4 % (39.0-53.0); HGB 11.4 gm/dL (13.0-17.5); Hypochromasia Slight; Lymphocytes # (A) 1.8 k/uL (1.0-4.8); Lymphocytes % (A) 23 %; MCH 29.9 pg (25.0-35.0); MCHC 31.4 g/dL (31.0-37.0); MCV 95.2 fL (80.0-100.0); Macrocytosis Slight; Mean Platelet Volume 9.3; Monocytes # (A) 0.9 k/uL (0-1.0); Monocytes % (A) 11 %; Neutrophils % (A) 62 %; RBC 3.82 m/uL (4.30-5.90); RDW 18.6 % (11.5-15.5)
[2022-01-11 06:22] LABS: African American GFR (CKD) 66 (>60 ml/min/1.73 sqM); Anion Gap 0 mmol/L; Blood Urea Nitrogen 21 mg/dL (9-20); Carbon Dioxide 28 mmol/L (22-30); Chloride 114 mmol/L (98-107); Glucose 75 mg/dL (74-99); Non-African American GFR(CKD) 57 (>60 ml/min/1.73 sqM); Potassium 4.5 mmol/L (3.5-5.1); Sodium 142 mmol/L (137-145)
[2022-01-11 06:33] LABS: Platelet Count 82 k/uL (150-450)
[2022-01-11] MEDS: CHOLECALCIFEROL 125 MCG (5000 IU) TABLET PO SCH (08:13)
[2022-01-11] MEDS: ASPIRIN 81 MG PO SCH (08:14)
[2022-01-11] MEDS: FERROUS SULFATE 325 MG TAB PO SCH ×2 (08:15→21:30)
[2022-01-11] MEDS: levETIRAcetam 250 MG TAB PO SCH ×2 (08:16→21:30)
[2022-01-11] MEDS: DIVALPROEX 500 MG TABLET.DR PO SCH ×2 (08:17→17:04)
[2022-01-11 11:08] VITALS: BMI 18.2
[2022-01-11] MEDS: ILOPERIDONE 4 MG PO SCH ×2 (14:53→21:31)
--- NOTE | 2022-01-11 15:25 | P.PN ---
Progress Note - Text Progress Note Date: 01/11/22 Chief Complaint: Altered mentation This is a 61-year-old patient who follows with visiting physicians Dr. Lara. Chronic stable medical conditions include prostate disorder, seizure disorder, developmental delay, depression. He lives at the [facility] home. Able to feed himself and needs some assistance with ADLs. Gait is slow does not use any device. He does work searches. Smoker. History of alcohol abuse not use at least 6 years. Patient is brought to the ER by EMS. According to staff he was less responsive and normally would come down and eat breakfast and today did not come down. When they went to his room he is not acting at his baseline. Patient himself is not able to give me any history. Often remaining quite. Then will speak a few words. Denies any pain. Denies any fever. Moving all his limbs. Noted to have a fever in the ER. No respiratory symptoms. Admitted with acute delirium felt to be from acute viral syndrome. 01/11/2022: No further fever. Antibiotics are not prescribed. Doing much better this morning. Had a good amount of his breakfast and lunch. Pending EEG. Cutback IV fluids. Communicating much better. Answer questions. Blood cultures negative to now. Active Medications Aspirin (Aspirin 81 Mg) 81 mg PO DAILY@0800 [facility] Last Admin: 01/11/22 08:14 Dose: 81 mg Cholecalciferol (Cholecalciferol 125 Mcg (5000 Iu) Tablet) 125 mcg PO DAILY@0800 [facility] Last Admin: 01/11/22 08:13 Dose: 125 mcg Clonazepam (Clonazepam 0.5 Mg Tab) 0.25 mg PO HS@1999 [facility] Last Admin: 01/10/22 20:08 Dose: 0.25 mg Desmopressin Acetate (Desmopressin 0.2 Mg Tab) 0.4 mg PO HS@1999 [facility] Last Admin: 01/10/22 20:15 Dose: 0.4 mg Divalproex Sodium (Divalproex 500 Mg Tablet.) 1,000 mg PO BID@0800,1600 [facility] Last Admin: 01/11/22 08:17 Dose: 1,000 mg Escitalopram Oxalate (Escitalopram 10 Mg Tab) 10 mg PO HS@1999 [facility] Last Admin: 01/10/22 20:08 Dose: 10 mg Ferrous Sulfate (Ferrous Sulfate 325 Mg Tab) 325 mg PO BID@ [facility] Last Admin: 01/11/22 08:15 Dose: 325 mg Sodium Chloride (Saline 0.9%) 1,000 mls @ 50 mls/hr IV .Q20H [facility] Last Admin: 01/11/22 04:44 Dose: 130 mls/hr Levetiracetam (Levetiracetam 250 Mg Tab) 250 mg PO BID@ [facility] Last Admin: 01/11/22 08:16 Dose: 250 mg Iloperidone [Fanapt] (4 Mg Tablet)) 4 mg PO BID@ [facility] Last Admin: 01/11/22 14:53 Dose: Not Given Past medical history to include: Seizure disorder, developmental delay, depression, chronic nicotine dependence, prostate disorder Social history: History of alcoholism in the past. At least over 6 years ago. Lives at [facility] home. Smokes about half a pack a day. Family history: Patient cannot tell Physical examination: VITAL SIGNS: 98.1, 50, 18, 1 33 x 65, 99% room air GENERAL: More awake today, smiling, answering some questions. EYES: Pupils equal. Conjunctiva normal. HEENT: External appearance of nose and ears normal, oral cavity grossly normal. NECK: JVD not raised; masses not palpable. HEART: First and second heart sounds are normal; no edema. LUNGS: Respiratory rate normal; decreased breath sounds. ABDOMEN: Soft, nontender, liver spleen not palpable, no masses palpable. PSYCH: Answering some simple questions. NEUROLOGICAL: Cranial nerves grossly intact; no facial asymmetry, power and sensation grossly intact. INVESTIGATIONS, reviewed in the clinical context: WBC 9 hemoglobin 14 platelets 99 sodium 141 BUN 21 creatinine 1.55 lactic acid 2.1 UA: Negative Influenza type A/diabetes/RSV/COVID-19: Not detected EKG tracing personally reviewed by me-sinus tachycardia. Nonspecific ST segment changes Chest x-ray film personally reviewed by me-borderline cardiomegaly. Possible chronic changes Previous labs: Creatinine 0.9 in June 2021 Assessment and plan: -Patient presents with decrease sensorium, fever.: Acute delirium -Patient has a fever, no respiratory symptoms, no urinary symptoms. No abdominal pain. No obvious source of infection. White count is normal. No left shift.: Possible viral syndrome Blood cultures pending. Consult ID. hold antibiotics for now. -Acute kidney injury, possibly prerenal from decreased oral intake IV fluids. -Thrombocytopenia likely from underlying infection -Seizure disorder Depakote Keppra 250 mg twice a day -Developmental delay -Depression Lexapro 10 mg daily at bedtime fanapt -Chronic nicotine dependence, cigarette smoker Nicotine patch 14 mg Cutback IV fluids. Blood cultures pending. Doing better. EEG pending.
[2022-01-11] MEDS: IOPAMIDOL CONTRAST (ORAL USE) VIAL PO PRN ×2 (16:27→17:34)
--- NOTE | 2022-01-11 19:04 | CT ---
EXAMINATION TYPE: CT abdomen pelvis wo con DATE OF EXAM: 01/11/2022 COMPARISON: None HISTORY: fever. pt only able to tolerate 1 drink due to AMS CT DLP: 521 mGycm Automated exposure control for dose reduction was used. Images obtained from the diaphragm to the floor of the pelvis with oral contrast only. There is some patchy linear infiltrate and atelectasis at the lung bases. Heart is slightly enlarged. There is mild pleural thickening at the posterior lung bases. Liver and spleen are intact. There is no pancreatic mass. Gallbladder is contracted. The stomach is i ntact. The bile ducts are not dilated. There is no adrenal mass. Kidneys have normal size. No hydronephrosis. Ureters are not dilated. No re troperitoneal adenopathy. Abdominal aorta is atheromatous. Bladder distends smoothly. No inguinal her adolfo. No free fluid in the pelvis. No evidence of a pelvic mass. The appendix is posterior adjacent to the right psoas muscle and appears normal. The small bowel pattern is normal. No evidence of obstruc tion. There is no mesenteric edema. No ascites or free air. No sign of a bowel obstruction. There is small amount of free fluid in the pelvis on the right side. The lumbar vertebra have normal alignment. Disc spaces are fairly normal. No compression fracture. Po sterior elements are intact. The sacroiliac joints are intact. Pelvic ring is intact. The proximal fe murs and hip joints are intact. IMPRESSION: There is small amount of low-density free fluid in the pelvis on the right side. Normal appendix. No evidence of a bowel obstruction.
[2022-01-11 20:45] LABS: Glucose,Whole Blood 81 mg/dL (70-110)
[2022-01-11] MEDS: ESCITALOPRAM 10 MG TAB PO SCH (21:30)
[2022-01-11] MEDS: clonazePAM 0.5 MG TAB PO SCH (21:30)
[2022-01-11] MEDS: DESMOPRESSIN 0.2 MG TAB PO SCH (21:30)
--- NOTE | 2022-01-11 23:26 | P.CONS ---
History of Present Illness - Reason for Consult Consult date: 01/11/22 Fever Requesting physician: Babak Orourke - Chief Complaint Less responsive x one day - History of Present Illness Patient is a 61-year-old -[place] male residential resident in this patient with a history of epilepsy developmental delay and seizure disorder the patient was brought into the ER after the patient was noticed to be less responsive as although normally the patient calms down and eat breakfast and patient did not do that yesterday when they went to check on him in his room he was not acting as his baseline no clear history of any fever chills vomiting seizure with the symptom the patient was brought into the ER on arrival to the ER the patient did have a fever of 101.8 F patient was not tachycardic nor hypoxic and did have a normal white count BUN/creatinine was mildly elevated lactic acid was mildly elevated subsequently normal liver exams are normal urine has been negative patient did have a negative SARS-CoV-2 RSV and influenza PCR patient did have a chest x-ray no evidence of acute pulmonary disease patient did received dose of Rocephin admitted to the hospital infectious he was consulted for further management most information has been obtained from review the chart talking nursing staff and the patient himself is not good historian however the patient was able to tell me that he is in the hospital was not able to name the hospital though he denies any headache to me no photophobia no nausea no vomiting and no diarrhea and is breathing comfortably on room air Review of Systems Positive point has been mentioned in the HPI rest of the systems are negative Past Medical History Past Medical History: Prostate Disorder, Seizure Disorder Additional Past Medical History / Comment(s): epilepsy, developmentally delayed History of Any Multi-Drug Resistant Organisms: None Reported Past Surgical History: No Surgical Hx Reported Additional Past Surgical History / Comment(s): Only surgery known was plastic surgery due to ashley as a child. Past Anesthesia/Blood Transfusion Reactions: Unable to Obtain Past Psychological History: Depression Smoking Status: Current every day smoker Past Alcohol Use History: None Reported Past Drug Use History: None Reported - Past Family History Father History Unknown: Yes Family Medical History: Unable to Obtain Mother History Unknown: Yes Family Medical History: Unable to Obtain Medications and Allergies Home Medications Medication Instructions Recorded Confirmed Type Desmopressin Acetate 0.4 mg PO HS@199907/13/15 01/10/22 History Aspirin EC [Ecotrin Low Dose] 81 mg PO DAILY@0800 10/05/16 01/10/22 History Escitalopram [Lexapro] 10 mg PO HS@199910/20/20 01/10/22 History Iloperidone [Fanapt] 4 mg PO BID@0800,199910/20/20 01/10/22 History Divalproex [Depakote] 1,000 mg PO BID@0800,1600 11/25/20 01/10/22 History Cholecalciferol (Vitamin D3) 125 mcg PO DAILY@0800 06/17/21 01/10/22 History [Vitamin D3 (125 MCG = 5,000 IU)] levETIRAcetam [Keppra] 250 mg PO BID@0800,199906/17/21 01/10/22 History Ferrous Sulfate [Iron (65 MG 325 mg PO BID@799,199901/10/22 01/10/22 History Elemental)] clonazePAM [KlonoPIN] 0.25 mg PO HS@199901/10/22 01/10/22 History cefUROXime axetiL [Ceftin] 500 mg PO BID #7 tab 01/13/22 Rx Allergies Allergy/AdvReac Type Severity Reaction Status Date / Time No Known Allergies Allergy Verified 01/10/22 13:10 Physical Exam Vitals: Vital Signs Temp Pulse Pulse Resp BP BP Pulse Ox 01/11/22 07:59 98.1 F 54 L 18 133/74 99 01/11/22 02:24 97.9 F 52 L 16 128/70 96 01/10/22 21:51 98.1 F 54 L 15 124/69 95 01/10/22 18:55 98.0 F 56 L 18 130/83 99 01/10/22 18:00 59 L 18 106/74 98 01/10/22 16:00 62 16 124/80 97 01/10/22 15:00 82 16 128/56 98 01/10/22 14:00 56 L 16 115/90 98 01/10/22 13:26 66 18 136/60 94 L 01/10/22 12:45 98.7 F 80 16 121/72 100 01/10/22 11:45 101.8 F H 01/10/22 11:15 101.3 F H 18 122/68 Intake and Output 1101/11/22 01/11/22 22:59 06:59 14:59 Output Total 150 225 Balance -150 -225 Output: Urine 150 225 Other: Voiding Method Urinal # Voids 0 Weight 54.431 kg GENERAL DESCRIPTION: Middle-aged male lying in bed, no distress. No tachypnea or accessory muscle of respiration use. HEENT: Shows Pallor , no scleral icterus. Oral mucous membrane is dry. No pharyngeal erythema or thrush NECK: Trachea central, no thyromegaly. LUNGS: Unlabored breathing. Clear to auscultation anteriorly. No wheeze or crackle. HEART: S1, S2, regular rate and rhythm. No loud murmur ABDOMEN: Soft, mild tenderness , no guarding or rigidity, no organomegaly EXTREMITIES: No edema of feet. SKIN: No rash, no masses palpable. NEUROLOGICAL: The patient is awake, alert, mood and affect normal. Results CBC & Chem 7: 01/11/22 05:27 01/13/22 05:58 Labs: Abnormal Lab Results - Last 24 Hours (Table) 01/10/22 01/10/22 01/10/22 Range/Units 11:45 11:45 11:45 RBC (4.30-5.90) m/uL Hgb (13.0-17.5) gm/dL Hct (39.0-53.0) % RDW 18.7 H (11.5-15.5) % Plt Count 99 L D (150-450) k/uL APTT 19.3 L (22.0-30.0) sec Chloride 110 H (98-107) mmol/L BUN 21 H (9-20) mg/dL Creatinine 1.55 H (0.66-1.25) mg/dL Plasma Lactic Acid Yobany (0.7-2.0) mmol/L Calcium (8.4-10.2) mg/dL 01/10/22 01/11/22 01/11/22 Range/Units 11:45 05:27 05:27 RBC 3.82 L (4.30-5.90) m/uL Hgb 11.4 L (13.0-17.5) gm/dL Hct 36.4 L (39.0-53.0) % RDW 18.6 H (11.5-15.5) % Plt Count 82 L (150-450) k/uL APTT (22.0-30.0) sec Chloride 114 H (98-107) mmol/L BUN 21 H (9-20) mg/dL Creatinine 1.34 H (0.66-1.25) mg/dL Plasma Lactic Acid Yobany 2.1 H* (0.7-2.0) mmol/L Calcium 8.0 L (8.4-10.2) mg/dL Assessment and Plan (1) Febrile illness Status: Acute Code(s): R50.9 - FEVER, UNSPECIFIED SNOMED Code(s): 297512672 Plan: 1patient is in the hospital with mental status changes and the fever in this patient with initial work-up has been negative with a question of possible viral syndrome versus abdominal source clinically suspicious low for encephalitis in this patient seem to have gone to his baseline he was able to tell me that he is in the hospital and categorically denies having any headache. 2we will obtain CT of abdominal pelvis with oral contrast 3we will repeat a UA CRP and a procalcitonin 4empirically add Rocephin while awaiting further work-up to be completed We will follow on clinical condition and cultures to further adjust medication if needed Thank you for this consultation will follow this patient along with you Time with Patient: Greater than 30
--- NOTE | 2022-01-11 23:54 | P.CNNES ---
History of Present Illness Consult date: 01/11/22 Requesting physician: Kris Shukla Reason for Consult: Altered mental status History of Present Illness: Patient is a 61-year-old male with history of seizure disorder, mentally slightly challenged, resident of an adult foster half-way, came to the hospital by ambulance yesterday at 11:12 AM. As per EMS flow sheet, upon arrival, they found patient in living room chair, shaking uncontrollably. desktop support manager stated that he came out of his room today, put on a heavy jacket, sat in the chair and was not responding appropriately. Patient has limited verbal response. But is alert. Patient denies any chest pain, abdominal pain, shortness of breath, recent infections/trauma, nausea vomiting or any compla ints. Patient does have contracture of arms bilaterally and full body muscle stiffness. Patient does have a known psychiatric/cognitive behavioral history reported by group insurance special agent. Patient's vitals at the scene include blood pressure 140/98, pulse rate 110, respirations 18, saturation 95% temperature 98.2 and blood glucose 110. Blood tests shows normal CBC with slightly decreased platelets 99,000. PT/PTT is normal. Electrolytes are normal, BUN 21, creatinine 1.55. Lactate was 2.1. Hepatic panel is normal UA negative, Depakote 93.5, influenza screen, RSV and arteaga virus negative. Patient was seen by myself on 06/18/2021 for generalized weakness, lethargy, likely because of hypotension, bradycardia. Patient does have seizure disorder, well controlled, no seizure for last 5 years. Patient has history of alcoholism. Also has tobacco use. Patient at that time was taking Keppra 250 mg twice a day, Depakote 1000 mg 3 times a day, Dilantin 100 mg in the morning 50 mg in the evening and Vimpat 50 mg daily. At present it appears patient is on Depakote 1000 mg twice a day, Keppra 250 mg twice a day and clonazepam 0.25 mg at bedtime. Not on Vimpat and Dilantin. Review of Systems Patient denies any headache. Patient does not cooperate with review of system evaluation. ROS unobtainable: due to mental status Past Medical History Past Medical History: Prostate Disorder, Seizure Disorder Additional Past Medical History / Comment(s): epilepsy, developmentally delayed History of Any Multi-Drug Resistant Organisms: None Reported Past Surgical History: No Surgical Hx Reported Additional Past Surgical History / Comment(s): Only surgery known was plastic surgery due to ashley as a child. Past Anesthesia/Blood Transfusion Reactions: Unable to Obtain Past Psychological History: Depression Smoking Status: Current every day smoker Past Alcohol Use History: None Reported Past Drug Use History: None Reported - Past Family History Father History Unknown: Yes Family Medical History: Unable to Obtain Mother History Unknown: Yes Family Medical History: Unable to Obtain Medications and Allergies Home Medications Medication Instructions Recorded Confirmed Type Desmopressin Acetate 0.4 mg PO HS@199907/13/15 01/10/22 History Aspirin EC [Ecotrin Low Dose] 81 mg PO DAILY@0800 10/05/16 01/10/22 History Escitalopram [Lexapro] 10 mg PO HS@199910/20/20 01/10/22 History Iloperidone [Fanapt] 4 mg PO BID@0800,199910/20/20 01/10/22 History Divalproex [Depakote] 1,000 mg PO BID@0800,1600 11/25/20 01/10/22 History Cholecalciferol (Vitamin D3) 125 mcg PO DAILY@0800 06/17/21 01/10/22 History [Vitamin D3 (125 MCG = 5,000 IU)] levETIRAcetam [Keppra] 250 mg PO BID@0800,199906/17/21 01/10/22 History Ferrous Sulfate [Iron (65 MG 325 mg PO BID@0800,199901/10/22 01/10/22 History Elemental)] clonazePAM [KlonoPIN] 0.25 mg PO HS@199901/10/22 01/10/22 History Allergies Allergy/AdvReac Type Severity Reaction Status Date / Time No Known Allergies Allergy Verified 01/10/22 13:10 Physical Examination - Vital Signs Vital Signs: Vital Signs Temp Pulse Pulse Resp BP BP Pulse Ox 01/11/22 07:59 98.1 F 54 L 18 133/74 99 01/11/22 02:24 97.9 F 52 L 16 128/70 96 01/10/22 21:51 98.1 F 54 L 15 124/69 95 01/10/22 18:55 98.0 F 56 L 18 130/83 99 01/10/22 18:00 59 L 18 106/74 98 01/10/22 16:00 62 16 124/80 97 01/10/22 15:00 82 16 128/56 98 01/10/22 14:00 56 L 16 115/90 98 01/10/22 13:26 66 18 136/60 94 L 01/10/22 12:45 98.7 F 80 16 121/72 100 01/10/22 11:45 101.8 F H 01/10/22 11:15 101.3 F H 18 122/68 Intake and Output 01/10/22 01/11/22 01/11/22 22:59 06:59 14:59 Output Total 150 225 Balance -150 -225 Output: Urine 150 225 Other: Voiding Method Urinal # Voids 0 Weight 54.431 kg Patient is a late middle aged [place] male, very pleasant, in no distress. Patient is alert awake, not well oriented. He perseverates on some clubhouse he states something "5 week since I'm in club house". Patient is mentally challenged. Speech and language functions are normal. Patient can name and repeat very well. No aphasia or dysarthria. Attention, concentration and fund of knowledge all are somewhat impaired. On cranial nerve examination, pupils are equal, round and reacting to light, visual maldonado are full on confrontation, with no neglect on double simultaneous stimulation. Extraocular muscles are intact with no nystagmus. Face is symmetric, tongue protrudes to the midline. Palatal elevation and sensation normal, hearing and shoulder shrug normal, facial sensation normal. On muscle strength testing, there is no pronator drift and the strength is normal in arms distally and proximally. In the lower limbs, patient would not cooperate with the testing particularly distally. He would move his foot up and down and would flail it, but would not cooperate. Deep tendon reflexes are (right/left) biceps 1/2, brachioradialis trace/1, knee 1/1, plantar flat bilaterally. Sensory to touch is unreliable. Cerebellar function showed no ataxia for [id number] testing. No ataxia for [id number] testing on either side. Tone is slightly increasedand bulk of muscles normal. Gait deferred.. On general examination, there is no carotid bruit or murmur, S1-S2 audible. Chest is clear on consultation. Abdomen is soft nontender. No organomegaly, bowel sounds present. Peripheral pulses are present. No edema. Results - Laboratory Findings CBC and BMP: 01/11/22 05:27 01/11/22 05:27 Abnormal Lab Findings: Abnormal Labs 01/10/22 01/10/22 01/10/22 11:45 11:45 11:45 RBC Hgb Hct RDW 18.7 H Plt Count 99 L D APTT 19.3 L Chloride 110 H BUN 21 H Creatinine 1.55 H Plasma Lactic Acid Yobany Calcium 01/10/22 01/11/22 01/11/22 11:45 05:27 05:27 RBC 3.82 L Hgb 11.4 L Hct 36.4 L RDW 18.6 H Plt Count 82 L APTT Chloride 114 H BUN 21 H Creatinine 1.34 H Plasma Lactic Acid Yobany 2.1 H* Calcium 8.0 L Assessment and Plan Assessment: * Altered mental status, likely due to acute febrile illness. * Cognitive slowing/mentally challenged. * History of seizure disorder, currently in remission. If patient has a seizure, probably provoked due to febrile illness. * History of alcoholism Plan: * Patient's altered mental status likely due to acute febrile illness. * Treatment of infection as per IM. * Patient's seizures are well controlled. Continue same dose of Keppra 250 mg twice a day and Depakote 1000 mg twice a day. Depakote level is therapeutic 93.5. * Neurologically no other workup indicated. Discussed with primary physician. * Thank you for the consult.
[2022-01-12] MEDS: SODIUM CHLORIDE 0.9% 1,000 ML IV SCH ×2 (01:42→21:31)
--- NOTE | 2022-01-12 03:29 | EEG ---
ELECTROENCEPHALOGRAM REPORT PREAMBLE: This is a 61-year-old male with a history of seizure disorder. The patient lives at adult foster skilled nursing. The patient was found to be altered yesterday. He is delayed and has significant medical history. Previous history of alcoholism. He has developmental delay. CURRENT MEDICATIONS: 1. Aspirin. 2. Klonopin. 3. Depakote. 4. Lexapro. 5. Keppra. EEG FINDINGS: This is a 21-channel digital EEG recorded with video component, utilizing 10/20 international system with referential and bipolar montages. Background consists of well-developed, moderately well regulated, mixed frequencies of low-voltage fast frequency beta intermixed with some alpha and some theta activity seen in bihemispheric region. Background is posterior dominant and reactive to eye opening and closing. Photic stimulation and hyperventilation were not done. Frequent movement and myogenic artifacts were seen as the patient would not lay still. Different stages of sleep were not seen. No focal or generalized epileptiform activity was seen. IMPRESSION: This is a normal awake and drowsy EEG. No focal, lateralized, or epileptiform activity was seen. MMODL / IJN: [id number] /
[2022-01-12 08:05] VITALS: RESP 16
[2022-01-12] MEDS: FERROUS SULFATE 325 MG TAB PO SCH ×2 (10:03→21:22)
[2022-01-12] MEDS: ASPIRIN 81 MG PO SCH (10:03)
[2022-01-12] MEDS: CHOLECALCIFEROL 125 MCG (5000 IU) TABLET PO SCH (10:03)
[2022-01-12] MEDS: levETIRAcetam 250 MG TAB PO SCH ×2 (10:04→21:22)
[2022-01-12] MEDS: DIVALPROEX 500 MG TABLET.DR PO SCH ×2 (10:04→15:01)
[2022-01-12 13:14] LABS: Appearance,Urine Clear (Clear); Bilirubin,Urine Negative (Negative); Blood,Urine Negative (Negative); Color,Urine Colorless; Glucose,Urine (UA) Negative (Negative); Ketones,Urine Negative (Negative); Leukocyte Esterase,Urine Negative (Negative); Nitrite,Urine Negative (Negative); PH, Urine 7.5 (5.0-8.0); Protein,Urine Negative (Negative); Specific Gravity,Urine 1.009 (1.001-1.035); Urobilinogen,Urine <2.0 mg/dL (<2.0)
--- NOTE | 2022-01-12 17:08 | P.PN ---
Progress Note - Text Progress Note Date: 01/12/22 Chief Complaint: Altered mentation This is a 61-year-old patient who follows with visiting physicians Dr. Lara. Chronic stable medical conditions include prostate disorder, seizure disorder, developmental delay, depression. He lives at the [facility] home. Able to feed himself and needs some assistance with ADLs. Gait is slow does not use any device. He does work searches. Smoker. History of alcohol abuse not use at least 6 years. Patient is brought to the ER by EMS. According to staff he was less responsive and normally would come down and eat breakfast and today did not come down. When they went to his room he is not acting at his baseline. Patient himself is not able to give me any history. Often remaining quite. Then will speak a few words. Denies any pain. Denies any fever. Moving all his limbs. Noted to have a fever in the ER. No respiratory symptoms. Admitted with acute delirium felt to be from acute viral syndrome. 01/11/2022: No further fever. Antibiotics are not prescribed. Doing much better this morning. Had a good amount of his breakfast and lunch. Pending EEG. Cutback IV fluids. Communicating much better. Answer questions. Blood cultures negative to now. 01/12/2022: Sitting up. Awake. Comfortable. Empirically and IV ceftriaxone per ID. Cultures pending. Active Medications Aspirin (Aspirin 81 Mg) 81 mg PO DAILY@0800 [facility] Last Admin: 01/12/22 10:03 Dose: 81 mg Cholecalciferol (Cholecalciferol 125 Mcg (5000 Iu) Tablet) 125 mcg PO DAILY@0800 [facility] Last Admin: 01/12/22 10:03 Dose: 125 mcg Clonazepam (Clonazepam 0.5 Mg Tab) 0.25 mg PO HS@1999 [facility] Last Admin: 01/11/22 21:30 Dose: 0.25 mg Desmopressin Acetate (Desmopressin 0.2 Mg Tab) 0.4 mg PO HS@1999 [facility] Last Admin: 01/11/22 21:30 Dose: 0.4 mg Divalproex Sodium (Divalproex 500 Mg Tablet.) 1,000 mg PO BID@0800,1600 [facility] Last Admin: 01/12/22 15:01 Dose: 1,000 mg Escitalopram Oxalate (Escitalopram 10 Mg Tab) 10 mg PO HS@1999 [facility] Last Admin: 01/11/22 21:30 Dose: 10 mg Ferrous Sulfate (Ferrous Sulfate 325 Mg Tab) 325 mg PO BID@ [facility] Last Admin: 01/12/22 10:03 Dose: 325 mg Sodium Chloride (Saline 0.9%) 1,000 mls @ 50 mls/hr IV .Q20H [facility] Last Admin: 01/12/22 01:42 Dose: Not Given Ceftriaxone Sodium 1 gm/ (Sodium Chloride) 50 mls @ 100 mls/hr IVPB Q24HR [facility]; Protocol Last Admin: 01/12/22 10:04 Dose: 100 mls/hr Levetiracetam (Levetiracetam 250 Mg Tab) 250 mg PO BID@ [facility] Last Admin: 01/12/22 10:04 Dose: 250 mg Iloperidone [Fanapt] (4 Mg Tablet)) 4 mg PO BID@ [facility] Last Admin: 01/11/22 21:31 Dose: Not Given Past medical history to include: Seizure disorder, developmental delay, depression, chronic nicotine dependence, prostate disorder Social history: History of alcoholism in the past. At least over 6 years ago. Lives at [facility] home. Smokes about half a pack a day. Family history: Patient cannot tell Physical examination: VITAL SIGNS: 97.6, 50, 16, 153 with 75, 99% room air GENERAL: Awake answering questions EYES: Pupils equal. Conjunctiva normal. HEENT: External appearance of nose and ears normal, oral cavity grossly normal. NECK: JVD not raised; masses not palpable. HEART: First and second heart sounds are normal; no edema. LUNGS: Respiratory rate normal; decreased breath sounds. ABDOMEN: Soft, nontender, liver spleen not palpable, no masses palpable. PSYCH: Awake answering simple questions NEUROLOGICAL: Cranial nerves grossly intact; no facial asymmetry, power and sensation grossly intact. INVESTIGATIONS, reviewed in the clinical context: WBC 9 hemoglobin 14 platelets 99 sodium 141 BUN 21 creatinine 1.55 lactic acid 2.1 UA: Negative Influenza type A/diabetes/RSV/COVID-19: Not detected EKG tracing personally reviewed by me-sinus tachycardia. Nonspecific ST segment changes Chest x-ray film personally reviewed by me-borderline cardiomegaly. Possible chronic changes Previous labs: Creatinine 0.9 in June 2021 Assessment and plan: -Patient presents with decrease sensorium, fever.: Acute delirium -Patient has a fever, no respiratory symptoms, no urinary symptoms. No abdominal pain. No obvious source of infection. White count is normal. No left shift.: Possible viral syndrome Blood cultures pending. Empirically started on IV ceftriaxone by Dr. Jacome. Cultures pending. -Acute kidney injury, possibly prerenal from decreased oral intake IV fluids. -Thrombocytopenia likely from underlying infection -Seizure disorder Depakote Keppra 250 mg twice a day -Developmental delay -Depression Lexapro 10 mg daily at bedtime fanapt -Chronic nicotine dependence, cigarette smoker Nicotine patch 14 mg Medications to continue Blood cultures pending. IV ceftriaxone empirically started by Dr. Jacome.
[2022-01-12] MEDS: ILOPERIDONE 4 MG PO SCH ×2 (17:36→21:21)
[2022-01-12] MEDS: DESMOPRESSIN 0.2 MG TAB PO SCH (21:21)
[2022-01-12] MEDS: ESCITALOPRAM 10 MG TAB PO SCH (21:22)
[2022-01-12] MEDS: clonazePAM 0.5 MG TAB PO SCH (21:22)
[2022-01-13 06:31] LABS: African American GFR (CKD) 70 (>60 ml/min/1.73 sqM); Anion Gap 0 mmol/L; Blood Urea Nitrogen 20 mg/dL (9-20); Calcium 8.4 mg/dL (8.4-10.2); Carbon Dioxide 29 mmol/L (22-30); Chloride 108 mmol/L (98-107); Glucose 73 mg/dL (74-99); Non-African American GFR(CKD) 60 (>60 ml/min/1.73 sqM); Potassium 4.9 mmol/L (3.5-5.1); Sodium 137 mmol/L (137-145)
[2022-01-13] MEDS: FERROUS SULFATE 325 MG TAB PO SCH (09:00)
[2022-01-13] MEDS: CHOLECALCIFEROL 125 MCG (5000 IU) TABLET PO SCH (09:00)
[2022-01-13] MEDS: DIVALPROEX 500 MG TABLET.DR PO SCH (09:00)
[2022-01-13] MEDS: ASPIRIN 81 MG PO SCH (09:00)
[2022-01-13] MEDS: levETIRAcetam 250 MG TAB PO SCH (09:00)
[2022-01-13] MEDS: ILOPERIDONE 4 MG PO SCH (09:01)
[2022-01-13 09:26] VITALS: BP 142/74; PULSE 42; TEMP 98.2
--- NOTE | 2022-01-13 16:19 | P.DS ---
Providers Date of admission: 01/10/22 14:43 Expected date of discharge: 01/13/22 Attending physician: Babak Orourke Consults: 01/10/22 14:44 Consult Physician Urgent Consulting Provider: Josef Sellers Consult Reason/Comments: Altered mental status Do you want consulting provider notified?: Yes 01/10/22 21:40 Consult Physician Routine Consulting Provider: Adam Salas Consult Reason/Comments: Fever Do you want consulting provider notified?: Yes Primary care physician: Donovna Lara [facility] Course: Chief Complaint: Altered mentation This is a 61-year-old patient who follows with visiting physicians Dr. Lara. Chronic stable medical conditions include prostate disorder, seizure disorder, developmental delay, depression. He lives at the [facility] home. Able to feed himself and needs some assistance with ADLs. Gait is slow does not use any device. He does work searches. Smoker. History of alcohol abuse not use at least 6 years. Patient is brought to the ER by EMS. According to staff he was less responsive and normally would come down and eat breakfast and today did not come down. When they went to his room he is not acting at his baseline. Patient himself is not able to give me any history. Often remaining quite. Then will speak a few words. Denies any pain. Denies any fever. Moving all his limbs. Noted to have a fever in the ER. No respiratory symptoms. Admitted with acute delirium felt to be from acute viral syndrome. 01/11/2022: No further fever. Antibiotics are not prescribed. Doing much better this morning. Had a good amount of his breakfast and lunch. Pending EEG. Cutback IV fluids. Communicating much better. Answer questions. Blood cultures negative to now. 01/12/2022: Sitting up. Awake. Comfortable. Empirically and IV ceftriaxone per ID. Cultures pending. 01/13/2022: Doing well. Oral intake good. Communicative. Discussed the Dr. Salas from ID. 7 days of Ceftin. Cultures remain negative. Past medical history to include: Seizure disorder, developmental delay, depression, chronic nicotine dependence, prostate disorder Social history: History of alcoholism in the past. At least over 6 years ago. Lives at [facility] home. Smokes about half a pack a day. Family history: Patient cannot tell Physical examination: VITAL SIGNS: 98.2, 42, 16, 142/74, 97% room air GENERAL: Awake answering questions EYES: Pupils equal. Conjunctiva normal. HEENT: External appearance of nose and ears normal, oral cavity grossly normal. NECK: JVD not raised; masses not palpable. HEART: First and second heart sounds are normal; no edema. LUNGS: Respiratory rate normal; decreased breath sounds. ABDOMEN: Soft, nontender, liver spleen not palpable, no masses palpable. PSYCH: Awake answering simple questions NEUROLOGICAL: Cranial nerves grossly intact; no facial asymmetry, power and sensation grossly intact. INVESTIGATIONS, reviewed in the clinical context: Computed tomography scan abdomen and pelvis: Unremarkable EEG: Negative for epilepsy Blood culture: Negative 01/13/2022: Potassium 4.9 creatinine 1.27 WBC 9 hemoglobin 14 platelets 99 sodium 141 BUN 21 creatinine 1.55 lactic acid 2.1 UA: Negative Influenza type A/diabetes/RSV/COVID-19: Not detected EKG tracing personally reviewed by me-sinus tachycardia. Nonspecific ST segment changes Chest x-ray film personally reviewed by me-borderline cardiomegaly. Possible chronic changes Previous labs: Creatinine 0.9 in June 2021 Assessment and plan: -Patient presents with decrease sensorium, fever.: Acute delirium -Patient has a fever, no respiratory symptoms, no urinary symptoms. No abdominal pain. No obvious source of infection. White count is normal. No left shift.: Possible viral syndrome Blood cultures. If. Empirically started on IV ceftriaxone. Complete M The course of Ceftin for 7 days. Seen by ID. -Acute kidney injury, possibly prerenal from decreased oral intake IV fluids. -Thrombocytopenia likely from underlying infection -Seizure disorder Depakote Keppra 250 mg twice a day -Developmental delay -Depression Lexapro 10 mg daily at bedtime fanapt -Chronic nicotine dependence, cigarette smoker Nicotine patch 14 mg Disposition: Home Outpatient: BMP in 7 days Plan - Discharge Summary New Discharge Prescriptions: New cefUROXime axetiL [Ceftin] 500 mg PO BID #7 tab Continue Desmopressin Acetate 0.4 mg PO HS@2000 Aspirin EC [Ecotrin Low Dose] 81 mg PO DAILY@0800 Cholecalciferol (Vitamin D3) [Vitamin D3 (125 MCG = 5,000 IU)] 125 mcg PO DAILY@0800 levETIRAcetam [Keppra] 250 mg PO BID@0800,2000 clonazePAM [KlonoPIN] 0.25 mg PO HS@1999 Escitalopram [Lexapro] 10 mg PO HS@1999 Iloperidone [Fanapt] 4 mg PO BID@799,1999 Divalproex [Depakote] 1,000 mg PO BID@0800,1600 Ferrous Sulfate [Iron (65 MG Elemental)] 325 mg PO BID@799,1999 Discharge Medication List Desmopressin Acetate 0.4 mg PO HS@199907/13/15 [History] Aspirin EC [Ecotrin Low Dose] 81 mg PO DAILY@0800 10/05/16 [History] Escitalopram [Lexapro] 10 mg PO HS@199910/20/20 [History] Iloperidone [Fanapt] 4 mg PO BID@799,199910/20/20 [History] Divalproex [Depakote] 1,000 mg PO BID@0800,1600 11/25/20 [History] Cholecalciferol (Vitamin D3) [Vitamin D3 (125 MCG = 5,000 IU)] 125 mcg PO DAILY@0800 06/17/21 [History] levETIRAcetam [Keppra] 250 mg PO BID@08,199906/17/21 [History] Ferrous Sulfate [Iron (65 MG Elemental)] 325 mg PO BID@799,199901/10/22 [History] clonazePAM [KlonoPIN] 0.25 mg PO HS@199901/10/22 [History] cefUROXime axetiL [Ceftin] 500 mg PO BID #7 tab 01/13/22 [Rx] Follow up Appointment(s)/Referral(s): Donovan Lara MD [Primary Care Provider] - 1-2 days Patient Instructions/Handouts: Fever in Adults (GEN) Discharge Disposition: TRANSFER TO SNF/ECF
--- NOTE | 2022-01-19 14:50 | P.PN ---
Subjective Progress Note Date: 01/12/22 Principal diagnosis: Fever Patient is a 61-year-old -[place] male with a past medical history significant for developmental delay and seizure disorder brought in the hospital for less responsiveness subsequently noticed to have a fever. On today's evaluation that is 01/12/2022, the patient is afebrile, the patient is breathing comfortably on room air no chest pain shortness of breath or cough no nausea no vomiting no abdominal pain no diarrhea Objective - Vital Signs Vital signs: Vital Signs Temp 97.6 F 01/12/22 08:04 Pulse 48 L 01/12/22 08:04 Resp 16 01/12/22 08:04 BP 149/62 01/12/22 08:04 Pulse Ox 98 01/12/22 08:04 FiO2 Intake & Output 01/11/22 01/12/22 01/12/22 18:59 06:59 18:59 Intake Total 240 240 Output Total 900 600 550 Balance -660 -600 -310 Weight 54.431 kg Intake: Oral 240 240 Output: Urine 900 600 550 Other: Voiding Method Urinal # Voids 2 1 # Bowel Movements 1 - Exam GENERAL DESCRIPTION: Middle-age male lying in bed in no distress RESPIRATORY SYSTEM: Unlabored breathing , decreased breath sounds at bases HEART: S1 S2 regular rate and rhythm , ABDOMEN: Soft , no tenderness EXTREMITIES: No edema feet - Labs CBC & Chem 7: 01/11/22 05:27 01/13/22 05:58 Labs: Abnormal Lab Results - Last 24 Hours (Table) 01/12/22 01/12/22 Range/Units 04:29 04:29 C-Reactive Protein 4.20 H (0.00-0.80) mg/dL Procalcitonin 0.30 H (0.02-0.09) ng/mL Microbiology - Last 24 Hours (Table) 01/10/22 11:45 Blood Culture - Preliminary Blood No Growth after 24 hours 01/10/22 11:45 Blood Culture - Preliminary Blood No Growth after 24 hours Assessment and Plan (1) Febrile illness Status: Acute Code(s): R50.9 - FEVER, UNSPECIFIED SNOMED Code(s): 318304486 Plan: 1patient is in the hospital with mental status changes and the fever in this patient with initial work-up has been negative with a question of possible viral syndrome versus abdominal source clinically suspicious low for encephalitis in this patient seem to have gone to his baseline he was able to tell me that he is in the hospital and categorically denies having any headache. 2patient did have CT of abdominal pelvis with oral contrast did not show any acute abnormality 3patient to continue with Rocephin while awaiting for the cultures to be finalize Time with Patient: Less than 30
--- NOTE | 2022-01-19 14:51 | P.PN ---
Subjective Progress Note Date: 01/13/22 Principal diagnosis: Fever Patient is a 61-year-old -[place] male with a past medical history significant for developmental delay and seizure disorder brought in the hospital for less responsiveness subsequently noticed to have a fever. On today's evaluation that is 01/13/2022, the patient remains to be afebrile, the patient is breathing comfortably on room air, the patient denies chest pain shortness of breath or cough no nausea no vomiting no abdominal pain no diarrhea Objective - Vital Signs Vital signs: Vital Signs Temp 98.2 F 01/13/22 07:00 Pulse 42 L 01/13/22 07:00 Resp 16 01/13/22 07:00 BP 142/74 01/13/22 07:00 Pulse Ox 97 01/13/22 07:00 FiO2 Intake & Output 01/12/22 01/13/22 01/13/22 18:59 06:59 18:59 Intake Total 712 2000 118 Output Total 1525 605 Balance -813 1999 -487 Intake: Intake, IV Titration 2000 Amount Sodium Chloride 0.9% 1, 1999 000 ml @ 50 mls/hr IV . Q20H [facility] Rx#:[id number] Oral 712 118 Output: Urine 1525 605 Other: Voiding Method Urinal # Voids 1 - Exam GENERAL DESCRIPTION: Middle-age male lying in bed in no distress RESPIRATORY SYSTEM: Unlabored breathing , decreased breath sounds at bases HEART: S1 S2 regular rate and rhythm , ABDOMEN: Soft , no tenderness EXTREMITIES: No edema feet - Labs CBC & Chem 7: 01/11/22 05:27 01/13/22 05:58 Labs: Abnormal Lab Results - Last 24 Hours (Table) 01/13/22 Range/Units 05:58 Chloride 108 H (98-107) mmol/L Creatinine 1.27 H (0.66-1.25) mg/dL Glucose 73 L (74-99) mg/dL Microbiology - Last 24 Hours (Table) 01/10/22 11:45 Blood Culture - Preliminary Blood No Growth after 48 hours 01/10/22 11:45 Blood Culture - Preliminary Blood No Growth after 48 hours Assessment and Plan (1) Febrile illness Status: Acute Code(s): R50.9 - FEVER, UNSPECIFIED SNOMED Code(s): 577191342 Plan: 1patient is in the hospital with mental status changes and the fever in this patient with initial work-up has been negative with a question of possible viral syndrome versus abdominal source clinically suspicious low for encephalitis in this patient seem to have gone to his baseline he was able to tell me that he is in the hospital and categorically denies having any headache. 2patient did have CT of abdominal pelvis with oral contrast did not show any acute abnormality 3patient fever has resolved culture has been negative with a question of possible viral syndrome however the patient did receive Rocephin will consider short course of oral Ceftin on discharge to be safe side discussed with the admitting physician with no discharge Time with Patient: Less than 30
== END 2022-01-13 14:14 ==
LOC: EC 11:12 → 6NMEDSUR 14:43
PROVIDERS: ADMIT Hospitalist; ATTEND Hospitalist
DX: R41.0 Disorientation, unspecified (principal); R50.9 Fever, unspecified; N17.9 Acute kidney failure, unspecified; D69.59 Other secondary thrombocytopenia; G40.909 Epilepsy, unspecified, not intractable, without status epilepticus; R62.50 Unspecified lack of expected normal physiological development in childhood; F32.A Depression, unspecified; N42.9 Disorder of prostate, unspecified; F10.21 Alcohol dependence, in remission; F17.210 Nicotine dependence, cigarettes, uncomplicated; Z79.82 Long term (current) use of aspirin; Z79.899 Other long term (current) drug therapy
CPT/HCPCS: 96361 ×3; 96365; 96375; 99285; 36415; 94760; 95816; 93005; 80164; 80053; 80048 ×2; 83605; 85025 ×2; 85610; 85730; 86140; 81003 ×2; 87040; 84145; 87636; 71046; 74176; G0378 ×4; J0696 ×4; J0131; J1741

== ENCOUNTER 2022-01-24 02:41 | Emergency (ER) | payer OTHER ==
[2022-01-24 02:54] VITALS: RESP 16
[2022-01-24] MEDS ORDERED: levETIRAcetam IV 1,000 MG in SALINE 1 100ML.BAG IVPB STA (03:02)
--- NOTE | 2022-01-24 03:02 | ED ---
General Adult HPI - General Chief complaint: Altered Mental Status Stated complaint: Seizure Time Seen by Provider: 01/24/22 02:52 Source: EMS Mode of arrival: EMS - History of Present Illness Initial comments: Dictation was produced using [employer] dictation software. please excuse any grammatical, word or spelling errors. Chief Complaint: 61-year-old male presents to the emergency department for seizure or altered mental status History of Present Illness: 61-year-old male past medical history of seizure disorder, developmental delay and mentally challenged. [facility] is a [facility]. Just prior to arrival patient was suspected to have just suffered a seizure. Does take seizure medications. He takes Keppra on a daily basis. Some clear with exact the patient's baseline is. Emesis, patient brought to the emergency room. Patient has any complaints at this time. He states he feels fine. Though he is not the most reliable historian. It is unclear if patient is been compliant with his medications. The ROS documented in this emergency department record has been reviewed and confirmed by me. Those systems with pertinent positive or negative responses have been documented in the HPI. All other systems are other negative and/or noncontributory. PHYSICAL EXAM: General Impression: Alert and oriented x3/4, not in acute distress HEENT: Normocephalic atraumatic, extra-ocular movements intact, pupils equal and reactive to light bilaterally, mucous membranes moist. Cardiovascular: Heart regular rate and rhythm Chest: Able to complete full sentences, no retractions, no tachypnea Abdomen: abdomen soft, non-tender, non-distended, no organomegaly Musculoskeletal: Pulses present and equal in all extremities, no peripheral edema Motor: no focal deficits noted Neurological: CN II-XII grossly intact, no focal motor or sensory deficits noted Skin: Intact with no visualized rashes Psych: Normal affect and mood ED course: 61-year-old well-appearing male past medical history of seizure disorder mental delay presents to the ER after suspicion that patient suffered a seizure. No history to suggest that he had a witnessed tonic-clonic convulsive episode. Chart review was performed showing the patient was seen here in emergency department and admitted to the hospital last month for similar issue. Vital signs upon arrival are within acceptable limits. Nursing notes and chart review was performed There was [facility] that was sent with the patient that suggests that he ate his meals and had all his meds. He went to bed got up and got dressed and came and sat in his chair and he became unresponsive. My EKG interpretation: Ventricular rate 50, sinus bradycardia,. Interval 136, QRS 70, QTC 414. No AK prolongation, no QTC prolongation, no ST or T-wave changes noted. EKG compared to 01/10/2022 showing no changes. Overall, this EKG is unremarkable Critical Care: no Critical Care time: n/a Laboratory evaluation obtained. CBC, metabolic panel is unremarkable. Abdominal labs negative. Computed tomography scan of the brain shows no acute processes. Patient observed in emergency department for 2 hours and 15 minutes. Reevaluated at bedside at 5:00 AM found to be stable medical condition. His resting comfortably. Patient given 1 g of Keppra. Patient clinical stable for discharge. - Related Data Home Medications Medication Instructions Recorded Confirmed Desmopressin Acetate 0.4 mg PO HS@199907/13/15 01/10/22 Aspirin EC [Ecotrin Low Dose] 81 mg PO DAILY@0800 10/05/16 01/10/22 Escitalopram [Lexapro] 10 mg PO HS@199910/20/20 01/10/22 Iloperidone [Fanapt] 4 mg PO BID@0800,199910/20/20 01/10/22 Divalproex [Depakote] 1,000 mg PO BID@0800,1600 11/25/20 01/10/22 Cholecalciferol (Vitamin D3) 125 mcg PO DAILY@0800 06/17/21 01/10/22 [Vitamin D3 (125 MCG = 5,000 IU)] levETIRAcetam [Keppra] 250 mg PO BID@0800,199906/17/21 01/10/22 Ferrous Sulfate [Iron (65 MG 325 mg PO BID@0800,199901/10/22 01/10/22 Elemental)] clonazePAM [KlonoPIN] 0.25 mg PO HS@199901/10/22 01/10/22 Previous Rx's Medication Instructions Recorded cefUROXime axetiL [Ceftin] 500 mg PO BID #7 tab 01/13/22 Allergies Allergy/AdvReac Type Severity Reaction Status Date / Time No Known Allergies Allergy Verified 01/10/22 13:10 Review of Systems ROS Statement: Those systems with pertinent positive or pertinent negative responses have been documented in the HPI. ROS Other: All systems not noted in ROS Statement are negative. Past Medical History Past Medical History: Prostate Disorder, Seizure Disorder Additional Past Medical History / Comment(s): epilepsy, developmentally delayed History of Any Multi-Drug Resistant Organisms: None Reported Past Surgical History: No Surgical Hx Reported Additional Past Surgical History / Comment(s): Only surgery known was plastic surgery due to ashley as a child. Past Anesthesia/Blood Transfusion Reactions: Unable to Obtain Past Psychological History: Depression Smoking Status: Current every day smoker Past Alcohol Use History: None Reported Past Drug Use History: None Reported - Past Family History Father History Unknown: Yes Family Medical History: Unable to Obtain Mother History Unknown: Yes Family Medical History: Unable to Obtain Course Vital Signs 01/24/22 01/24/22 01/24/22 02:44 03:27 04:00 Temperature 98.4 F Pulse Rate 52 L 54 L 53 L Respiratory 16 16 16 Rate Blood Pressure 105/60 123/96 132/74 O2 Sat by Pulse 99 98 98 Oximetry 01/24/22 04:14 Temperature Pulse Rate 53 L Respiratory 16 Rate Blood Pressure 126/86 O2 Sat by Pulse 99 Oximetry Medical Decision Making - Lab Data Result diagrams: 01/24/22 03:04 01/24/22 03:04 Lab Results 01/24/22 01/24/22 01/24/22 Range/Units 03:04 03:04 03:04 WBC 4.1 (3.8-10.6) k/uL RBC 4.03 L (4.30-5.90) m/uL Hgb 12.6 L (13.0-17.5) gm/dL Hct 38.4 L (39.0-53.0) % MCV 95.3 (80.0-100.0) fL MCH 31.2 (25.0-35.0) pg MCHC 32.7 (31.0-37.0) g/dL RDW 17.8 H (11.5-15.5) % Plt Count 108 L (150-450) k/uL MPV 8.6 Neutrophils % 38 % Lymphocytes % 46 % Monocytes % 10 % Eosinophils % 2 % Basophils % 1 % Neutrophils # 1.6 (1.3-7.7) k/uL Lymphocytes # 1.9 (1.0-4.8) k/uL Monocytes # 0.4 (0-1.0) k/uL Eosinophils # 0.1 (0-0.7) k/uL Basophils # 0.0 (0-0.2) k/uL Manual Slide Review Performed Hypochromasia Slight Anisocytosis Slight Sodium 143 (137-145) mmol/L Potassium 4.9 (3.5-5.1) mmol/L Chloride 109 H (98-107) mmol/L Carbon Dioxide 30 (22-30) mmol/L Anion Gap 4 mmol/L BUN 31 H (9-20) mg/dL Creatinine 1.35 H (0.66-1.25) mg/dL Est GFR (CKD-EPI)AfAm 65 (>60 ml/min/1.73 sqM) Est GFR (CKD-EPI)NonAf 56 (>60 ml/min/1.73 sqM) Glucose 82 (74-99) mg/dL Plasma Lactic Acid Yobany 1.4 (0.7-2.0) mmol/L Calcium 9.1 (8.4-10.2) mg/dL Magnesium 2.1 (1.6-2.3) mg/dL Total Bilirubin 0.3 (0.2-1.3) mg/dL AST 29 (17-59) U/L ALT 20 (4-49) U/L Alkaline Phosphatase 100 (38-126) U/L Ammonia <9 (<30) umol/L Total Protein 6.3 (6.3-8.2) g/dL Albumin 3.5 (3.5-5.0) g/dL Disposition Clinical Impression: Altered mental status Disposition: HOME SELF-CARE Condition: Good Instructions (If sedation given, give patient instructions): Altered Mental Status (ED) Is patient prescribed a controlled substance at d/c from ED?: No Referrals: Donovan Lara MD [Primary Care Provider] - 1-2 days Time of Disposition: 05:00
[2022-01-24 03:32] LABS: Anisocytosis Slight; Basophils % (A) 1 %; Eosinophils # (A) 0.1 k/uL (0-0.7); Eosinophils % (A) 2 %; HCT 38.4 % (39.0-53.0); HGB 12.6 gm/dL (13.0-17.5); Hypochromasia Slight; Lymphocytes # (A) 1.9 k/uL (1.0-4.8); Lymphocytes % (A) 46 %; MCH 31.2 pg (25.0-35.0); MCHC 32.7 g/dL (31.0-37.0); MCV 95.3 fL (80.0-100.0); Mean Platelet Volume 8.6; Monocytes # (A) 0.4 k/uL (0-1.0); Monocytes % (A) 10 %; Neutrophils # (A) 1.6 k/uL (1.3-7.7); Neutrophils % (A) 38 %; Platelet Count 108 k/uL (150-450); RBC 4.03 m/uL (4.30-5.90); RDW 17.8 % (11.5-15.5); WBC 4.1 k/uL (3.8-10.6)
[2022-01-24 03:43] LABS: Lactic Acid, Venous 1.4 mmol/L (0.7-2.0)
[2022-01-24 03:44] LABS: Albumin 3.5 g/dL (3.5-5.0); Calcium 9.1 mg/dL (8.4-10.2); Magnesium 2.1 mg/dL (1.6-2.3); Potassium 4.9 mmol/L (3.5-5.1); Total Bilirubin 0.3 mg/dL (0.2-1.3); Total Protein 6.3 g/dL (6.3-8.2)
--- NOTE | 2022-01-24 04:57 | CT ---
EXAMINATION TYPE: CT brain wo con DATE OF EXAM: 01/24/2022 COMPARISON: 06/17/2021 HISTORY: AMS, seizure. CT DLP: 1143 mGycm Automated exposure control for dose reduction was used. Images of the brain obtained with no contrast There is diffuse cerebral cortical atrophy. There is no mass effect or midline shift. No sign of intr acranial hemorrhage. Calvarium is intact. There is some mild mucosal thickening in the ethmoid sinus. There is more noticeable cerebellar atrophy. IMPRESSION: Cerebral atrophy. No acute intracranial abnormality. No significant change.
[2022-01-24 05:56] VITALS: BP 120/74; PULSE 55; TEMP 98.4
== END 2022-01-24 06:10 | disposition home or self-care (01) ==
LOC: EC 02:41
DX: R41.82 Altered mental status, unspecified (principal); G40.909 Epilepsy, unspecified, not intractable, without status epilepticus; F32.A Depression, unspecified; F17.200 Nicotine dependence, unspecified, uncomplicated; Z79.82 Long term (current) use of aspirin
CPT/HCPCS: 36415; 93005; 80053; 82140; 83605; 83735; 85025; 70450; 99285; 96374; J1953

== ENCOUNTER → 2022-02-28 | Outpatient (CLI) | payer OTHER ==
--- NOTE | 2022-02-28 11:58 | US ---
EXAMINATION TYPE: US abdomen complete DATE OF EXAM: 02/28/2022 COMPARISON: NONE CLINICAL HISTORY: K76.9 LIVER DISEASE, UNSPECIFIED. Hepatic cirrhosis TECHNIQUE: Multiple sonographic images of the abdomen are obtained. FINDINGS: EXAM MEASUREMENTS: Liver Length: 13.8 cm Gallbladder Wall: .2 cm CBD: .3 cm Spleen: Obscured by bowel gas. Right Kidney: 8.5 x 3.5 x 4.2 cm Left Kidney: 9.6 x 4.3 x 3.4 cm HAND FINISHER NOTES: Pancreas: Obscured by bowel gas Liver: Liver contour appears relatively smooth. There is homogenous echotexture. No suspicious masses . Gallbladder: No stones seen Evidence for sonographic Ward's sign: No CBD: wnl Spleen: Obscured by overlying bowel gas Right Kidney: wnl Left Kidney: wnl Upper IVC: wnl Abd Aorta: wnl The liver is homogenous. The intrahepatic portion of the IVC and proximal abdominal aorta are within normal limits. There is no evidence of cholelithiasis. Common bile duct is unremarkable. The visu alized portions of the pancreas are homogenous. The spleen is unremarkable. Kidneys are symmetric a nd free of hydronephrosis. No renal lesions are seen. IMPRESSION: No acute process.
== END | disposition home or self-care (01) ==
LOC: RADUSWWP 09:24
PROVIDERS: ATTEND Internal Medicine Hematology & Oncology
DX: K76.9 Liver disease, unspecified (principal); K74.60 Unspecified cirrhosis of liver
CPT/HCPCS: 76700

== ENCOUNTER 2022-04-29 11:02 | Observation (INO) | payer OTHER ==
[2022-04-29 11:16] LABS: Glucose,Whole Blood 75 mg/dL (70-110)
[2022-04-29] MEDS ORDERED: levETIRAcetam IV 500 MG in SODIUM CHLORIDE 0.9% 100 ML IVPB STA (11:40)
--- NOTE | 2022-04-29 11:44 | ED ---
General Adult HPI - General Chief complaint: Seizure Stated complaint: seizure Time Seen by Provider: 04/29/22 11:05 Source: patient, EMS, RN notes reviewed, old records reviewed Mode of arrival: EMS Limitations: no limitations - History of Present Illness Initial comments: This is a 62-year-old male who is unable to give any history because he is posti ctal. All history comes from EMS. EMS stated that at his adult foster care facility he was seen having seizure-like activities he gave him nasal Versed and his activity stop EMS arrived she was postictal they did not give him any further medications and he remained postictal for his right in. Patient is on multiple antiseizure medications. There was no history of any other problems fevers or problems breathing. Patient said no history of nausea vomiting or diarrhea. - Related Data Home Medications Medication Instructions Recorded Confirmed Desmopressin Acetate 0.4 mg PO HS 07/13/15 04/29/22 Aspirin EC [Ecotrin Low Dose] 81 mg PO DAILY 10/05/16 04/29/22 Escitalopram [Lexapro] 10 mg PO HS 10/20/20 04/29/22 Divalproex [Depakote] 1,000 mg PO BID 11/25/20 04/29/22 Cholecalciferol (Vitamin D3) 125 mcg PO DAILY 06/17/21 04/29/22 [Vitamin D3 (125 MCG = 5,000 IU)] levETIRAcetam [Keppra] 250 mg PO Q12H 06/17/21 04/29/22 Ferrous Sulfate [Iron (65 MG 325 mg PO BID 01/10/22 04/29/22 Elemental)] Lacosamide [Vimpat] 50 mg PO DAILY 03/24/22 04/29/22 Divalproex [Depakote] 250 mg PO DAILY@1200 04/29/22 04/29/22 Iloperidone [Fanapt] 2 mg PO BID 04/29/22 04/29/22 Allergies Allergy/AdvReac Type Severity Reaction Status Date / Time No Known Allergies Allergy Verified 04/29/22 13:26 Review of Systems ROS Statement: Those systems with pertinent positive or pertinent negative responses have been documented in the HPI. ROS Other: All systems not noted in ROS Statement are negative. Past Medical History Past Medical History: Prostate Disorder, Seizure Disorder Additional Past Medical History / Comment(s): epilepsy, developmentally delayed History of Any Multi-Drug Resistant Organisms: None Reported Past Surgical History: No Surgical Hx Reported Additional Past Surgical History / Comment(s): Only surgery known was plastic surgery due to ashley as a child. Past Anesthesia/Blood Transfusion Reactions: Unable to Obtain Past Psychological History: Depression Smoking Status: Current every day smoker Past Alcohol Use History: None Reported Past Drug Use History: None Reported - Past Family History Father History Unknown: Yes Family Medical History: Unable to Obtain Mother History Unknown: Yes Family Medical History: Unable to Obtain General Exam - General Exam Comments Initial Comments: GENERAL: Patient is well-developed and well-nourished. Patient is nontoxic and well- hydrated and is in no acute distress. ENT: Neck is soft and supple. No significant lymphadenopathy is noted. Oropharynx is clear. Moist mucous membranes. Neck has full range of motion without eliciting any pain. EYES: The sclera were anicteric and conjunctiva were pink and moist. Extraocular movements were intact and pupils were equal round and reactive to light. Eyel ids were unremarkable. PULMONARY: Unlabored respirations. Good breath sounds bilaterally. No audible rales rhonchi or wheezing was noted. CARDIOVASCULAR: There is a regular rate and rhythm without any murmurs gallops or rubs. ABDOMEN: Soft and nontender with normal bowel sounds. SKIN: Skin is clear with no lesions or rashes and otherwise unremarkable. NEUROLOGIC: Patient is alert and oriented 1. Cranial nerves II through XII are grossly intact. Motor and sensory are also intact. Normal speech, volume and content. Symmetrical smile. MUSCULOSKELETAL: Normal extremities with adequate strength and full range of motion. LYMPHATICS: No significant lymphadenopathy is noted PSYCHIATRIC: Unable to evaluate at this time Limitations: no limitations Course Vital Signs 04/29/22 04/29/22 04/29/22 11:05 11:13 11:30 Temperature 97.6 F Pulse Rate 74 61 60 Respiratory 22 16 12 Rate Blood Pressure 124/90 117/73 O2 Sat by Pulse 99 99 100 Oximetry 04/29/22 04/29/22 12:30 14:00 Temperature Pulse Rate 56 L 54 L Respiratory 15 18 Rate Blood Pressure 104/71 133/67 O2 Sat by Pulse 96 97 Oximetry Medical Decision Making - Medical Decision Making EKG is interpreted by myself shows a sinus rhythm at 62 bpm NH interval 290 QRS is 77 QT interval 320 QTC is 36. Patient's EKG shows no ST segment elevation or depression. Was pt. sent in by a medical professional or institution ([facility], [facility]EEPER, urgent care, hospital, or group home...) When possible be specific @ -Patient was sent in from the care home and they observed seizure activity Did you speak to anyone other than the patient for history (EMS, parent, family, police, friend...)? What history was obtained from this source @ -EMS gave most of the history because no one was with the patient and the patient was postictal Did you review nursing and triage notes (agree or disagree)? Why? @ -I reviewed and agree with nursing and triage notes Were old charts reviewed (outside hosp., previous admission, EMS record, old EKG, old radiological studies, urgent care reports/EKG's, group home records)? Report findings @ -I reviewed prior CT scans of this patient. I also reviewed prior lab work on this patient. Differential Diagnosis (chest pain, altered mental status, abdominal pain women, abdominal pain men, vaginal bleeding, weakness, fever, dyspnea, syncope, headache, dizziness, GI bleed, back pain, seizure, CVA, palpatations, mental health, musculoskeletal)? @ -Differential Seizure: Recurrent seizure disorder, febrile seizure, alcohol withdrawal, stimulants, meningitis, encephalitis, intercranial hemorrhage, intracranial tumor, stroke, eclampsia, thyrotoxicosis, hypocalcemia, hyponatremia, hypernatremia, hypomagnesemia, psychogenic, this is not meant to be an all-inclusive list. EKG interpreted by me (3pts min.). @ -As above X-rays interpreted by me (1pt min.). @ -Chest x-ray was interpreted by myself as no acute abnormalities. CT interpreted by me (1pt min.). @ -None done U/S interpreted by me (1pt. min.). @ -None done What testing was considered but not performed or refused? (CT, X-rays, U/S, labs)? Why? @ -Consider doing CT of the brain but the patient recently had a CT of brain and had no trauma from today's event What meds were considered but not given or refused? Why? @ -None Did you discuss the management of the patient with other professionals (professionals i.e. Dr., PA, BROTHEL KEEPER, lab, RT, psych nurse, social work professor, tarring machine operator, teacher, homicide squad commanding officer, case packer)? Give summary @ -I spoke with Dr. Orourke he agreed to admit the patient admitted the patient wrote admitting orders. Was smoking cessation discussed for >3mins.? @ -No Was critical care preformed (if so, how long)? @ -No Were there social determinants of health that impacted care today? How? (Homele ssness, low income, unemployed, alcoholism, drug addiction, transportation, low edu. Level, literacy, decrease access to med. care, shelter, rehab)? @ -No Was there de-escalation of care discussed even if they declined (Discuss DNR or withdrawal of care, Hospice)? DNR status @ -No What co-morbidities impacted this encounter? (DM, HTN, Smoking, COPD, CAD, Cancer, CVA, ARF, Chemo, Hep., AIDS, mental health diagnosis, sleep apnea, morbid obesity)? @ -None Was patient admitted / discharged? Hospital course, mention meds given and route, prescriptions, significant lab abnormalities, going to OR and other pertinent info. @ -Patient came in a postictal state he eventually woke up be alert and oriented 1 according to the adult foster care he is normally alert and oriented 2 and able to ambulate we were unable to get him to ambulate after for half hours and at this time I called Dr. Orourke he did agree to admit the patient we will consult neurology and I'll write admitting orders Undiagnosed new problem with uncertain prognosis? @ -No Drug Therapy requiring intensive monitoring for toxicity (Heparin, Nitro, Insulin, Cardizem)? @ -No Were any procedures done? @ -No Diagnosis/symptom? @ -Generalized seizure Acute, or Chronic, or Acute on Chronic? @ -Acute Uncomplicated (without systemic symptoms) or Complicated (systemic symptoms)? @ -Complicated Side effects of treatment? @ -No Exacerbation, Progression, or Severe Exacerbation? @ -No Poses a threat to life or bodily function? How? (Chest pain, [place], [place], pneumonia, PE, COPD, DKA, ARF, appy, cholecystitis, CVA, Diverticulitis, Homicidal, Suicidal, threat to staff... and all critical care pts) @ -No - Lab Data Result diagrams: 04/29/22 11:44 04/29/22 11:44 Lab Results 04/29/22 04/29/22 04/29/22 Range/Units 11:13 11:44 11:44 WBC 3.7 L (3.8-10.6) k/uL RBC 4.50 (4.30-5.90) m/uL Hgb 14.1 (13.0-17.5) gm/dL Hct 43.5 (39.0-53.0) % MCV 96.7 (80.0-100.0) fL MCH 31.3 (25.0-35.0) pg MCHC 32.4 (31.0-37.0) g/dL RDW 15.2 (11.5-15.5) % Plt Count 93 L (150-450) k/uL MPV 8.9 Neutrophils % 54 % Lymphocytes % 30 % Monocytes % 11 % Eosinophils % 2 % Basophils % 1 % Neutrophils # 2.0 (1.3-7.7) k/uL Lymphocytes # 1.1 (1.0-4.8) k/uL Monocytes # 0.4 (0-1.0) k/uL Eosinophils # 0.1 (0-0.7) k/uL Basophils # 0.0 (0-0.2) k/uL Manual Slide Review Performed Sodium (137-145) mmol/L Potassium (3.5-5.1) mmol/L Chloride (98-107) mmol/L Carbon Dioxide (22-30) mmol/L Anion Gap mmol/L BUN (9-20) mg/dL Creatinine (0.66-1.25) mg/dL Est GFR (CKD-EPI)AfAm (>60 ml/min/1.73 sqM) Est GFR (CKD-EPI)NonAf (>60 ml/min/1.73 sqM) Glucose (74-99) mg/dL POC Glucose (mg/dL) 75 (70-110) mg/dL POC Glu Silk Screen Operator ID Asaf Catalan Calcium (8.4-10.2) mg/dL Magnesium (1.6-2.3) mg/dL Total Bilirubin (0.2-1.3) mg/dL AST (17-59) U/L ALT (4-49) U/L Alkaline Phosphatase (38-126) U/L Total Protein (6.3-8.2) g/dL Albumin (3.5-5.0) g/dL Urine Color Light Yellow Urine Appearance Clear (Clear) Urine pH 6.5 (5.0-8.0) Ur Specific [place] 1.011 (1.001-1.035) Urine Protein Negative (Negative) Urine Glucose (UA) Negative (Negative) Urine Ketones Negative (Negative) Urine Blood Trace H (Negative) Urine Nitrite Negative (Negative) Urine Bilirubin Negative (Negative) Urine Urobilinogen <2.0 (<2.0) mg/dL Ur Leukocyte Esterase Negative (Negative) Urine RBC 9 H (0-5) /hpf Urine WBC <1 (0-5) /hpf Urine Opiates Screen Not Detected (NotDetected) Ur Oxycodone Screen Not Detected (NotDetected) Urine Methadone Screen Not Detected (NotDetected) Ur Propoxyphene Screen Not Detected (NotDetected) Ur Barbiturates Screen Not Detected (NotDetected) Valproic Acid ug/mL U Tricyclic Antidepress Not Detected (NotDetected) Ur Phencyclidine Scrn Not Detected (NotDetected) Ur Amphetamines Screen Not Detected (NotDetected) U Methamphetamines Scrn Not Detected (NotDetected) U Benzodiazepines Scrn Not Detected (NotDetected) Urine Cocaine Screen Not Detected (NotDetected) U Marijuana (THC) Screen Not Detected (NotDetected) 04/29/22 04/29/22 Range/Units 11:44 11:44 WBC (3.8-10.6) k/uL RBC (4.30-5.90) m/uL Hgb (13.0-17.5) gm/dL Hct (39.0-53.0) % MCV (80.0-100.0) fL MCH (25.0-35.0) pg MCHC (31.0-37.0) g/dL RDW (11.5-15.5) % Plt Count (150-450) k/uL MPV Neutrophils % % Lymphocytes % % Monocytes % % Eosinophils % % Basophils % % Neutrophils # (1.3-7.7) k/uL Lymphocytes # (1.0-4.8) k/uL Monocytes # (0-1.0) k/uL Eosinophils # (0-0.7) k/uL Basophils # (0-0.2) k/uL Manual Slide Review Sodium 139 (137-145) mmol/L Potassium 4.6 (3.5-5.1) mmol/L Chloride 106 (98-107) mmol/L Carbon Dioxide 28 (22-30) mmol/L Anion Gap 5 mmol/L BUN 24 H (9-20) mg/dL Creatinine 1.56 H (0.66-1.25) mg/dL Est GFR (CKD-EPI)AfAm 54 (>60 ml/min/1.73 sqM) Est GFR (CKD-EPI)NonAf 47 (>60 ml/min/1.73 sqM) Glucose 69 L (74-99) mg/dL POC Glucose (mg/dL) (70-110) mg/dL POC Glu Silk Screen Operator ID Calcium 9.6 (8.4-10.2) mg/dL Magnesium 1.9 (1.6-2.3) mg/dL Total Bilirubin 0.3 (0.2-1.3) mg/dL AST 26 (17-59) U/L ALT 21 (4-49) U/L Alkaline Phosphatase 53 (38-126) U/L Total Protein 6.8 (6.3-8.2) g/dL Albumin 4.0 (3.5-5.0) g/dL Urine Color Urine Appearance (Clear) Urine pH (5.0-8.0) Ur Specific [place] (1.001-1.035) Urine Protein (Negative) Urine Glucose (UA) (Negative) Urine Ketones (Negative) Urine Blood (Negative) Urine Nitrite (Negative) Urine Bilirubin (Negative) Urine Urobilinogen (<2.0) mg/dL Ur Leukocyte Esterase (Negative) Urine RBC (0-5) /hpf Urine WBC (0-5) /hpf Urine Opiates Screen (NotDetected) Ur Oxycodone Screen (NotDetected) Urine Methadone Screen (NotDetected) Ur Propoxyphene Screen (NotDetected) Ur Barbiturates Screen (NotDetected) Valproic Acid 85.8 ug/mL U Tricyclic Antidepress (NotDetected) Ur Phencyclidine Scrn (NotDetected) Ur Amphetamines Screen (NotDetected) U Methamphetamines Scrn (NotDetected) U Benzodiazepines Scrn (NotDetected) Urine Cocaine Screen (NotDetected) U Marijuana (THC) Screen (NotDetected) Disposition Clinical Impression: Generalized seizure, Post-ictal state Disposition: ADMITTED IP TO THIS HOSP Instructions (If sedation given, give patient instructions): Seizure/Epilepsy Discharge Instructions & Follow-Up Referrals: Francisco Wiley MD [Primary Care Provider] - 1-2 days Time of Disposition: 15:58
[2022-04-29 12:11] LABS: Potassium 4.6 mmol/L (3.5-5.1)
[2022-04-29 12:12] LABS: Calcium 9.6 mg/dL (8.4-10.2); Magnesium 1.9 mg/dL (1.6-2.3); Total Bilirubin 0.3 mg/dL (0.2-1.3); Total Protein 6.8 g/dL (6.3-8.2)
--- NOTE | 2022-04-29 12:23 | XR ---
EXAMINATION TYPE: XR chest 2V DATE OF EXAM: 04/29/2022 COMPARISON: 01/10/2022 HISTORY: 62 year-old male shortness of breath, difficulty breathing TECHNIQUE: AP and lateral views FINDINGS: Heart upper limits of normal in size. Aorta and pulmonary vasculature within normal limits. No consol idation or pleural effusion. Mild hyperinflation. Pectus excavatum deformity noted on the lateral vie w. IMPRESSION: COPD. Pectus excavatum deformity incidentally noted on the lateral view. No acute process seen.
[2022-04-29 12:42] LABS: Basophils % (A) 1 %; Eosinophils # (A) 0.1 k/uL (0-0.7); Eosinophils % (A) 2 %; HCT 43.5 % (39.0-53.0); HGB 14.1 gm/dL (13.0-17.5); Lymphocytes # (A) 1.1 k/uL (1.0-4.8); Lymphocytes % (A) 30 %; MCH 31.3 pg (25.0-35.0); MCHC 32.4 g/dL (31.0-37.0); MCV 96.7 fL (80.0-100.0); Mean Platelet Volume 8.9; Monocytes # (A) 0.4 k/uL (0-1.0); Monocytes % (A) 11 %; Neutrophils % (A) 54 %; RDW 15.2 % (11.5-15.5); WBC 3.7 k/uL (3.8-10.6)
[2022-04-29 13:13] LABS: Platelet Count 93 k/uL (150-450)
[2022-04-29 13:51] LABS: Amphetamine Screen,Urine Not Detected (NotDetected); Barbiturate Screen,Urine Not Detected (NotDetected); Benzodiazepines Screen,Urine Not Detected (NotDetected); Cocaine Screen,Urine Not Detected (NotDetected); Methadone Screen, Urine Not Detected (NotDetected); Opiate Screen,Urine Not Detected (NotDetected); Oxycodone Screen, Urine Not Detected (NotDetected); Phencyclidine Screen,Urine Not Detected (NotDetected); Tricyclic Antidepressant,Urine Not Detected (NotDetected); Urn Cannabinoid Scrn Not Detected (NotDetected)
[2022-04-29 13:53] LABS: Appearance,Urine Clear (Clear); Bilirubin,Urine Negative (Negative); Blood,Urine Trace (Negative); Color,Urine Light Yellow; Glucose,Urine (UA) Negative (Negative); Ketones,Urine Negative (Negative); Leukocyte Esterase,Urine Negative (Negative); Nitrite,Urine Negative (Negative); PH, Urine 6.5 (5.0-8.0); Protein,Urine Negative (Negative); RBC,Urine 9 /hpf (0-5); Specific Gravity,Urine 1.011 (1.001-1.035); Urobilinogen,Urine <2.0 mg/dL (<2.0); WBC,Urine <1 /hpf (0-5)
[2022-04-29] MEDS ORDERED: SODIUM CHLORIDE 0.9% 1,000 ML IV ONE (15:58)
[2022-04-29] MEDS ORDERED: ONDANSETRON 4 MG/2 ML VIAL IVP PRN (16:21)
[2022-04-29] MEDS ORDERED: NALOXONE 0.4 MG/ML 1 ML VIAL IV PRN (16:21)
[2022-04-29] MEDS ORDERED: LACTULOSE 20 GM/30 ML CUP PO PRN (16:21)
[2022-04-29] MEDS ORDERED: LORazepam 0.5 MG TAB PO PRN (16:21)
[2022-04-29] MEDS ORDERED: CALCIUM CARBONATE 500 MG CHEWABLE PO PRN (16:21)
[2022-04-29] MEDS ORDERED: ACETAMINOPHEN TAB 325 MG TAB PO PRN (16:21)
--- NOTE | 2022-04-29 16:34 | P.HPIM ---
History of Present Illness H&P Date: 04/29/22 Chief Complaint: Seizure This is a 62-year-old patient who follows with visiting physicians Dr. Lara. Chronic stable medical conditions include prostate disorder, seizure disorder, developmental delay, depression. He lives at the [facility] home. Able to feed himself and needs some assistance with ADLs. Gait is slow does not use any device. He does work searches. Smoker. History of alcohol abuse not use at least 6 years. By the EMS report patient reported a seizure at the [facility] home. Patient remained postictal. EMS was called out. After the ER. Remained postictal. Not waking up. Hence patient is being admitted. Nobody else available to give any further history. Neurology was consulted. Review of systems: Cannot be obtained as patient's postictal Past medical history to include: Seizure disorder, developmental delay, depression, chronic nicotine dependence, prostate disorder Social history: History of alcoholism in the past. At least over 6 years ago. Lives at [facility]. Smokes about half a pack a day. Physical examination: VITAL SIGNS: 97.6, 74, 22, 124/90, 99% room air GENERAL: BMI 22.4, lethargic, laying in bed, barely arousable EYES: Pupils equal. Conjunctiva normal. HEENT: External appearance of nose and ears normal, oral cavity grossly normal. NECK: JVD unable to assess; masses not palpable. HEART: First and second heart sounds are normal; no edema. LUNGS: Respiratory rate normal; decreased breath sounds. ABDOMEN: Soft, nontender, liver spleen not palpable, no masses palpable. PSYCH: Lethargic, unable to assess MUSCULOSKELETAL:No Clubbing/cyanosis;muscles-grossly intact NEUROLOGICAL: Cranial nerves grossly intact; no facial asymmetry, power and sensation grossly intact. LYMPHATICS: No lymph nodes palpable in the axilla and neck INVESTIGATIONS, reviewed in the clinical context: White count 3.7 hemoglobin 14.1 platelets 93 potassium 4.6 BUN 24 creatinine 1.56 [place] 69 UA negative for nitrite and leukoesterase Urine drug screen valproic acid 85.8 EKG tracing personally reviewed by me-harley baseline. Sinus rhythm. Rate 62 Chest x-ray film personally reviewed by me-some hyperinflation Previous labs: Creatinine 1.35 in January 30 Assessment and plan: -Patient presents with decrease sensorium, felt to be postictal -Acute kidney injury, possibly prerenal from decreased oral intake IV fluids. -Hypoglycemia likely from decreased oral intake D5 0.45 -Chronic kidney disease stage III flexor from nephrosclerosis Creatinine 1.35 in January 2022 -Thrombocytopenia chronic -Seizure disorder Depakote thousand milligrams twice a day, to 50 mg a day Keppra 250 mg twice a day. At 50 mg a day -Developmental delay -Depression Lexapro 10 mg daily at bedtime fanapt -Chronic nicotine dependence, cigarette smoker Nicotine patch 14 mg Neuro Checks. Aspiration precautions. Consult neurology. Home medications resumed. Feeding with supervision. Past Medical History Past Medical History: Prostate Disorder, Seizure Disorder Additional Past Medical History / Comment(s): epilepsy, developmentally delayed History of Any Multi-Drug Resistant Organisms: None Reported Past Surgical History: No Surgical Hx Reported Additional Past Surgical History / Comment(s): Only surgery known was plastic surgery due to ashley as a child. Past Anesthesia/Blood Transfusion Reactions: Unable to Obtain Past Psychological History: Depression Smoking Status: Current every day smoker Past Alcohol Use History: None Reported Past Drug Use History: None Reported - Past Family History Father History Unknown: Yes Family Medical History: Unable to Obtain Mother History Unknown: Yes Family Medical History: Unable to Obtain Medications and Allergies Home Medications Medication Instructions Recorded Confirmed Type Desmopressin Acetate 0.4 mg PO HS 07/13/15 04/29/22 History Aspirin EC [Ecotrin Low Dose] 81 mg PO DAILY 10/05/16 04/29/22 History Escitalopram [Lexapro] 10 mg PO HS 10/20/20 04/29/22 History Divalproex [Depakote] 1,000 mg PO BID 11/25/20 04/29/22 History Cholecalciferol (Vitamin D3) 125 mcg PO DAILY 06/17/21 04/29/22 History [Vitamin D3 (125 MCG = 5,000 IU)] levETIRAcetam [Keppra] 250 mg PO Q12H 06/17/21 04/29/22 History Ferrous Sulfate [Iron (65 MG 325 mg PO BID 01/10/22 04/29/22 History Elemental)] Lacosamide [Vimpat] 50 mg PO DAILY 03/24/22 04/29/22 History Divalproex [Depakote] 250 mg PO DAILY@1200 04/29/22 04/29/22 History Iloperidone [Fanapt] 2 mg PO BID 04/29/22 04/29/22 History Allergies Allergy/AdvReac Type Severity Reaction Status Date / Time No Known Allergies Allergy Verified 04/29/22 13:26 Physical Exam Vitals: Vital Signs Temp Pulse Resp BP Pulse Ox 04/29/22 14:00 54 L 18 133/67 97 04/29/22 12:30 56 L 15 104/71 96 04/29/22 11:30 60 12 117/73 100 04/29/22 11:13 61 16 99 04/29/22 11:05 97.6 F 74 22 124/90 99 Intake and Output 04/29/22 04/29/22 04/29/22 06:59 14:59 22:59 Other: Weight 74.843 kg Results CBC & Chem 7: 04/29/22 11:44 04/29/22 11:44 Labs: Abnormal Lab Results - Last 24 Hours (Table) 04/29/22 04/29/22 04/29/22 Range/Units 11:44 11:44 11:44 WBC 3.7 L (3.8-10.6) k/uL Plt Count 93 L (150-450) k/uL BUN 24 H (9-20) mg/dL Creatinine 1.56 H (0.66-1.25) mg/dL Glucose 69 L (74-99) mg/dL Urine Blood Trace H (Negative) Urine RBC 9 H (0-5) /hpf
[2022-04-29] MEDS: ENOXAPARIN 40 MG/0.4 ML SYRINGE SQ SCH (18:27)
[2022-04-29] MEDS: DEXTROSE 5%-0.45% NACL 1,000 ML IV ONE (18:31)
[2022-04-29] MEDS: levETIRAcetam 250 MG TAB PO SCH (22:23)
[2022-04-29] MEDS: DIVALPROEX 500 MG TABLET.DR PO SCH (22:25)
[2022-04-29] MEDS: DESMOPRESSIN 0.2 MG TAB PO SCH (22:25)
[2022-04-29] MEDS: ESCITALOPRAM 10 MG TAB PO SCH (22:25)
[2022-04-29] MEDS: FERROUS SULFATE 325 MG TAB PO SCH (22:25)
[2022-04-29] MEDS: ILOPERIDONE PO SCH (22:55)
[2022-04-29] MEDS: VALPROIC ACID ORAL SOLN 250 MG/5 ML CUP PO SCH (23:53)
[2022-04-30] MEDS: DEXTROSE 5%-0.45% NACL 1,000 ML IV ONE (01:59)
[2022-04-30 07:15] LABS: African American GFR (CKD) 58 (>60 ml/min/1.73 sqM); Anion Gap -1 mmol/L; Blood Urea Nitrogen 21 mg/dL (9-20); Calcium 8.6 mg/dL (8.4-10.2); Carbon Dioxide 32 mmol/L (22-30); Chloride 105 mmol/L (98-107); Glucose 92 mg/dL (74-99); Non-African American GFR(CKD) 51 (>60 ml/min/1.73 sqM); Potassium 4.6 mmol/L (3.5-5.1); Sodium 136 mmol/L (137-145)
[2022-04-30] MEDS: DIVALPROEX 500 MG TABLET.DR PO SCH (07:31)
[2022-04-30] MEDS: ILOPERIDONE PO SCH ×2 (09:13→21:55)
[2022-04-30] MEDS: ENOXAPARIN 40 MG/0.4 ML SYRINGE SQ SCH (09:21)
[2022-04-30] MEDS: FERROUS SULFATE 325 MG TAB PO SCH ×2 (09:21→21:54)
[2022-04-30] MEDS: CHOLECALCIFEROL 125 MCG (5000 IU) TABLET PO SCH (09:21)
[2022-04-30] MEDS: LACOSAMIDE 50 MG TABLET PO SCH (09:21)
[2022-04-30] MEDS: ASPIRIN 81 MG PO SCH (09:21)
[2022-04-30] MEDS: levETIRAcetam 250 MG TAB PO SCH (09:22)
[2022-04-30] MEDS: VALPROIC ACID ORAL SOLN 250 MG/5 ML CUP PO SCH ×3 (09:43→21:53)
--- NOTE | 2022-04-30 10:22 | P.CNNES ---
History of Present Illness Consult date: 04/30/22 Requesting physician: Kris Shukla Reason for Consult: Generalized seizure, postictal state History of Present Illness: Patient is a 62-year-old male with history of seizure disorder, mentally slightly challenged, resident of an adult foster custodial, came to the hospital by ambulance yesterday at 11:02 AM for a breakthrough seizure. As per EMS flow sheet, when they arrived, found patient unresponsive after staff states that he had a prolonged seizure. Patient has history of seizures in the seizure lasted for over 3 minutes. Patient was given Versed nasal spray 2 attempted to stop the seizure. When EMS arrived, patient was sitting in the chair completely unresponsive with snoring respiration. Patient was lowered to the floor and airway was opened and snoring stopped. Patient's blood sugar was 109. EKG shows sinus tachycardia. Patient began to move around but was very postictal and resisting any treatment. Patient's vitals at the scene was blood pressure 156/86, pulse rate 104, respiration 12, saturation 92% EKG shows sinus rhythm. Chest x-ray showed COPD. Practice excavatum deformity incidentally noted on the lateral view. Patient had a recent CT head performed without contrast on 03/24/2022 after a seizure showed cerebellar atrophy with no acute intracranial process. 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 Agree with significant cerebellar atrophy. Patient's blood test shows WBC 3.7, normal hemoglobin and platelets are slightly decreased 93. Electrolytes are normal, BU and 24 creatinine 1.56. Hepatic panel is normal, UA negative. Urine drug screen negative, Depakote level is normal 85.8. Patient's home medications include desmopressin, aspirin 81 mg, Lexapro 10 mg, Depakote 1000 mg twice a day, 250 mg at noon. Also on Keppra 250 mg every 12 hours and Vimpat 50 mg daily, ferrous sulfate, Fanapt. Patient at present states that he probably had a seizure. Patient not able to provide any further history. Patient had a normal EEG on 01/11/2022. Patient was seen by myself on 06/18/2021 for generalized weakness, lethargy, likely because of hypotension, bradycardia. Patient does have seizure disorder, well controlled, no seizure for last 5 years. Patient has history of alcoholism. Also has tobacco use. Patient at that time was taking Keppra 250 mg twice a day, Depakote 1000 mg 3 times a day, Dilantin 100 mg in the morning 50 mg in the evening and Vimpat 50 mg daily. At present it appears patient is on Depakote 1000 mg twice a day, Keppra 250 mg twice a day and clonazepam 0.25 mg at bedtime. Not on Vimpat and Dilantin. Patient was also seen by myself on 01/11/2022. At that time patient was taking Keppra 250 mg twice a day, Depakote 1000 mg twice a day. Review of Systems Review of systems not reliable because patient would not answer questions. ROS unobtainable: due to mental status Constitutional: Denies chills, Denies fever Eyes: denies blurred vision, denies pain Ears: deny: decreased hearing, ear discharge Ears, nose, mouth and throat: Denies headache, Denies sore throat Cardiovascular: Denies chest pain, Denies shortness of breath Past Medical History Past Medical History: Prostate Disorder, Seizure Disorder Additional Past Medical History / Comment(s): epilepsy, developmentally delayed History of Any Multi-Drug Resistant Organisms: None Reported Past Surgical History: No Surgical Hx Reported Additional Past Surgical History / Comment(s): Only surgery known was plastic surgery due to ashley as a child. Past Anesthesia/Blood Transfusion Reactions: Unable to Obtain Past Psychological History: Depression Additional Psychological History / Comment(s): Pt resides at [facility]. He has lived there for 6 yrs. He is able to feed himself and needs assist with other ADLS. He walks without device-gait is slow. He loves doing word searches. He likes to eat meat and have one coke each night. Smoking Status: Current every day smoker Past Alcohol Use History: None Reported Additional Past Alcohol Use History / Comment(s): Pt is a 10 cigarette a day smoker. He has hx of alcohol abuse. Youth Corrections Officer states she does not know last time pt drank alcohol but knows he has had none for the past 6 yrs while he has lived with her. Past Drug Use History: None Reported - Past Family History Father History Unknown: Yes Family Medical History: Unable to Obtain Mother History Unknown: Yes Family Medical History: Unable to Obtain Medications and Allergies Home Medications Medication Instructions Recorded Confirmed Type Desmopressin Acetate 0.4 mg PO HS 07/13/15 04/29/22 History Aspirin EC [Ecotrin Low Dose] 81 mg PO DAILY 10/05/16 04/29/22 History Escitalopram [Lexapro] 10 mg PO HS 10/20/20 04/29/22 History Divalproex [Depakote] 1,000 mg PO BID 11/25/20 04/29/22 History Cholecalciferol (Vitamin D3) 125 mcg PO DAILY 06/17/21 04/29/22 History [Vitamin D3 (125 MCG = 5,000 IU)] levETIRAcetam [Keppra] 250 mg PO Q12H 06/17/21 04/29/22 History Ferrous Sulfate [Iron (65 MG 325 mg PO BID 01/10/22 04/29/22 History Elemental)] Lacosamide [Vimpat] 50 mg PO DAILY 03/24/22 04/29/22 History Divalproex [Depakote] 250 mg PO DAILY@1200 04/29/22 04/29/22 History Iloperidone [Fanapt] 2 mg PO BID 04/29/22 04/29/22 History Allergies Allergy/AdvReac Type Severity Reaction Status Date / Time No Known Allergies Allergy Verified 04/29/22 13:26 Physical Examination - Vital Signs Vital Signs: Vital Signs Temp Pulse Pulse Resp BP BP Pulse Ox 04/30/22 07:54 97.7 F 54 L 18 124/86 99 04/30/22 02:12 98.0 F 60 19 111/64 100 04/29/22 19:27 98.3 F 78 16 120/69 98 04/29/22 18:10 97.9 F 83 18 124/75 95 04/29/22 14:00 54 L 18 133/67 97 04/29/22 12:30 56 L 15 104/71 96 04/29/22 11:30 60 12 117/73 100 04/29/22 11:13 61 16 99 04/29/22 11:05 97.6 F 74 22 124/90 99 Intake and Output 04/29/22 04/30/22 04/30/22 22:59 06:59 14:59 Intake Total 240 1320 118 Output Total 400 Balance 240 920 118 Intake: Intake, IV Titration 1200 Amount Dextrose 5%-0.45% NaCl 1, 1200 000 ml @ 100 mls/hr IV . Q10H ONE Rx#:[id number] Oral 240 120 118 Output: Urine 400 Other: Voiding Method Urinal Urinal Diaper Diaper Incontinent Incontinent # Voids 1 Weight 74.843 kg Patient is late middle aged Afro-[place]ian male, in no acute distress. Patient has been decreased slightly. He smiles and laughs for no reason. Patient is alert awake. He states is April 2001, could not tell the city or sta te he is in. He knows his name and his date of . She has significantly slow mentation, prolonged latency time to answer any questions. Speech and language functions are normal. Patient has difficulty with naming objects like knuckles. His limited speech appears clear. No aphasia or dysarthria. Attention, concentration and fund of knowledge is quite limited On cranial nerve examination, pupils are equal, round and reacting to light, visual maldonado are full on confrontation. Extraocular muscles are intact with no nystagmus. Face is symmetric, he lifts his tongue to top of the mouth, would not protruded out. He appears to have some tongue tie. No obvious tongue laceration. Palatal elevation and sensation normal, hearing probably slightly decreased and shoulder shrug normal, facial sensation normal. On muscle strength testing, patient did not cooperate with muscle strength testing. His biceps and triceps appears normal. He did not squeeze hands, did not cooperate for deltoid testing. Patient would not cooperate for testing of his lower extremities. He wiggles slightly to painful stimuli. Deep tendon reflexes are symmetric 1 in the upper limbs, trace in the lower limbs, plantars are probably upgoing. Sensory to touch could not be assessed. He does withdraw slightly to painful stimuli in the lower limbs. Cerebellar functions could not be checked, as patient would not cooperate. He does have some intermittent tremors of his arms, sometimes right, sometimes left, appears at rest. Gait deferred. On general examination, there is no carotid bruit or murmur, S1-S2 audible. Chest is clear on consultation. Abdomen is soft nontender. No organomegaly, bowel sounds present. Peripheral pulses are present. No edema. Results - Laboratory Findings CBC and BMP: 04/29/22 11:44 04/30/22 06:02 Abnormal Lab Findings: Abnormal Labs 03/19/23 03/19/23 03/19/23 11:44 11:44 11:44 WBC 3.7 L Plt Count 93 L Sodium Carbon Dioxide BUN 24 H Creatinine 1.56 H Glucose 69 L Urine Blood Trace H Urine RBC 9 H 04/30/22 06:02 WBC Plt Count Sodium 136 L Carbon Dioxide 32 H BUN 21 H Creatinine 1.46 H Glucose Urine Blood Urine RBC Assessment and Plan Assessment: * Breakthrough seizure in a patient with history of seizure disorder. * Cognitive slowing/mentally challenged. * History of seizure disorder * History of alcoholism (as per previous records) Plan: * Patient is currently on Depakote 1000 mg twice a day and 250 mg at midday. His levels are [id number]. * Patient also on very low-dose Keppra 250 mg twice a day and Vimpat 50 mg daily. * Agree check EEG to evaluate for any interictal epileptiform activity. * Further management based upon EEG results. Thank you for the consult. Addendum: EEG was performed, which was abnormal due to background slowing of mild to mo derate degree, suggestive of generalized cerebral dysfunction as can be seen with encephalopathy or medication effect. No epileptiform activity was seen. Recommend increase dose of Keppra to 500 mg twice a day. Continue same dose of Depakote and Vimpat. Neurologically clear. Recommend follow-up with his neurologist in 2-4 weeks.
[2022-04-30] MEDS ORDERED: DIVALPROEX 250 MG TABLET.DR PO SCH (12:00)
--- NOTE | 2022-04-30 17:16 | P.PN ---
Progress Note - Text Progress Note Date: 04/30/22 Chief Complaint: Seizure This is a 62-year-old patient who follows with visiting physicians Dr. Lara. Chronic stable medical conditions include prostate disorder, seizure disorder, developmental delay, depression. He lives at the [facility] home. Able to feed himself and needs some assistance with ADLs. Gait is slow does not use any device. He does work searches. Smoker. History of alcohol abuse not use at least 6 years. By the EMS report patient reported a seizure at the [facility] home. Patient remained postictal. EMS was called out. After the ER. Remained postictal. Not waking up. Hence patient is being admitted. Nobody else available to give any further history. Neurology was consulted. Admitted postictal state. 04/30/2022: Sulfa patient this morning. Awake. Did eat some. Pending EEG. Follow with neurology Active Medications Acetaminophen (Acetaminophen Tab 325 Mg Tab) 650 mg PO Q6HR PRN PRN Reason: Mild Pain or Fever > 100.5 Aspirin (Aspirin 81 Mg) 81 mg PO DAILY [facility] Last Admin: 04/30/22 09:21 Dose: 81 mg Calcium Carbonate/Glycine (Calcium Carbonate 500 Mg Chewable) 1,000 mg PO Q4HR PRN PRN Reason: Dyspepsia Cholecalciferol (Cholecalciferol 125 Mcg (5000 Iu) Tablet) 125 mcg PO DAILY [facility] Last Admin: 04/30/22 09:21 Dose: 125 mcg Desmopressin Acetate (Desmopressin 0.2 Mg Tab) 0.4 mg PO HS [facility] Last Admin: 04/29/22 22:25 Dose: 0.4 mg Enoxaparin Sodium (Enoxaparin 40 Mg/0.4 Ml Syringe) 40 mg SQ DAILY [facility] Last Admin: 04/30/22 09:21 Dose: 40 mg Escitalopram Oxalate (Escitalopram 10 Mg Tab) 10 mg PO HS [facility] Last Admin: 04/29/22 22:25 Dose: 10 mg Ferrous Sulfate (Ferrous Sulfate 325 Mg Tab) 325 mg PO BID [facility] Last Admin: 04/30/22 09:21 Dose: 325 mg Lacosamide (Lacosamide 50 Mg Tablet) 50 mg PO DAILY [facility] Last Admin: 04/30/22 09:21 Dose: 50 mg Lactulose (Lactulose 20 Gm/30 Ml Cup) 20 gm PO DAILY PRN PRN Reason: Constipation Levetiracetam (Levetiracetam 250 Mg Tab) 250 mg PO Q12HR [facility] Last Admin: 04/30/22 09:22 Dose: 250 mg Lorazepam (Lorazepam 0.5 Mg Tab) 0.5 mg PO Q6HR PRN PRN Reason: Anxiety Naloxone HCl (Naloxone 0.4 Mg/Ml 1 Ml Vial) 0.2 mg IV Q2M PRN PRN Reason: Opioid Reversal Iloperidone [Fanapt] (2 Mg Tablet) 2 mg PO BID [facility] Last Admin: 04/30/22 09:13 Dose: Not Given Ondansetron HCl (Ondansetron 4 Mg/2 Ml Vial) 4 mg IVP Q8HR PRN PRN Reason: Nausea And Vomiting Valproic Acid (Valproic Acid Oral Soln 250 Mg/5 Ml Cup) 1,000 mg PO BID [facility] Last Admin: 04/30/22 09:43 Dose: 1,000 mg Valproic Acid (Valproic Acid Oral Soln 250 Mg/5 Ml Cup) 250 mg PO DAILY@1200 [facility] Last Admin: 04/30/22 13:08 Dose: 250 mg Past medical history to include: Seizure disorder, developmental delay, depression, chronic nicotine dependence, prostate disorder Social history: History of alcoholism in the past. At least over 6 years ago. Lives at [facility] home. Smokes about half a pack a day. Physical examination: VITAL SIGNS: 98.3, 63, 18, 124/86, 99% room air GENERAL: Awake answering simple questions EYES: Pupils equal. Conjunctiva normal. HEENT: External appearance of nose and ears normal, oral cavity grossly normal. NECK: JVD unable to assess; masses not palpable. HEART: First and second heart sounds are normal; no edema. LUNGS: Respiratory rate normal; decreased breath sounds. ABDOMEN: Soft, nontender, liver spleen not palpable, no masses palpable. PSYCH: Answering simple questions NEUROLOGICAL: Cranial nerves grossly intact; no facial asymmetry, power and sensation grossly intact. INVESTIGATIONS, reviewed in the clinical context: April 30: Potassium 4.6. 21 and creatinine 1.46 White count 3.7 hemoglobin 14.1 platelets 93 potassium 4.6 BUN 24 creatinine 1.56 [place] 69 UA negative for nitrite and leukoesterase Urine drug screen valproic acid 85.8 EKG tracing personally reviewed by me-shaky baseline. Sinus rhythm. Rate 62 Chest x-ray film personally reviewed by me-some hyperinflation Previous labs: Creatinine 1.35 in January 30 Assessment and plan: -Post ictal state. Better -Acute kidney injury, possibly prerenal from decreased oral intake IV fluids. -Hypoglycemia likely from decreased oral intake D5 0.45 -Chronic kidney disease stage III flexor from nephrosclerosis Creatinine 1.35 in January 2022 -Thrombocytopenia chronic -Seizure disorder Depakote thousand milligrams twice a day, to 50 mg a day Keppra 250 mg twice a day. At 50 mg a day -Developmental delay -Depression Lexapro 10 mg daily at bedtime fanapt -Chronic nicotine dependence, cigarette smoker Nicotine patch 14 mg Continue IV fluids. Pending EEG. Follow with neurology.
[2022-04-30] MEDS: DEXTROSE 5%-0.45% NACL 1,000 ML IV SCH (17:44)
[2022-04-30] MEDS ORDERED: levETIRAcetam 500 MG TAB PO SCH (21:00)
[2022-04-30] MEDS: DESMOPRESSIN 0.2 MG TAB PO SCH (21:54)
[2022-04-30] MEDS: ESCITALOPRAM 10 MG TAB PO SCH (21:54)
--- NOTE | 2022-04-30 22:47 | EEG ---
ELECTROENCEPHALOGRAM REPORT PREAMBLE: This is a 62-year-old male with seizure disorder, came with breakthrough seizure. CURRENT MEDICATIONS: 1. Depakote. 2. Vimpat. 3. Keppra. EEG FINDINGS: This is a 21-channel digital EEG recorded with video component, utilizing 10/20 international system with referential and bipolar montages. Background consists of moderately well-developed and regulated, mixed frequencies of some alpha, intermixed with some theta and some delta activity seen in bihemispheric region. Background is posterior dominant and seems to be reactive to eye opening and closing. A lot of eye blink artifact was seen. Myogenic artifacts were also seen. Photic stimulation was not performed. Different stages of sleep were not seen. No definitive focal or generalized epileptiform activity was seen. IMPRESSION: This is an abnormal EEG due to background slowing of mild to moderate degree. This is suggestive of generalized cerebral dysfunction as can be seen with encephalopathy or medication effect. No epileptiform activity was seen. MMODL / IJN: [id number] /
[2022-05-01] MEDS: DEXTROSE 5%-0.45% NACL 1,000 ML IV SCH ×3 (02:38→20:04)
[2022-05-01 06:59] LABS: Potassium 4.6 mmol/L (3.5-5.1)
[2022-05-01 07:00] LABS: African American GFR (CKD) 68 (>60 ml/min/1.73 sqM); Anion Gap 3 mmol/L; Blood Urea Nitrogen 17 mg/dL (9-20); Calcium 8.6 mg/dL (8.4-10.2); Carbon Dioxide 29 mmol/L (22-30); Chloride 105 mmol/L (98-107); Glucose 85 mg/dL (74-99); Non-African American GFR(CKD) 59 (>60 ml/min/1.73 sqM); Sodium 137 mmol/L (137-145)
[2022-05-01] MEDS: ILOPERIDONE PO SCH ×2 (09:49→20:04)
[2022-05-01] MEDS: VALPROIC ACID ORAL SOLN 250 MG/5 ML CUP PO SCH ×3 (10:16→20:03)
[2022-05-01] MEDS: LACOSAMIDE 50 MG TABLET PO SCH (10:18)
[2022-05-01] MEDS: CHOLECALCIFEROL 125 MCG (5000 IU) TABLET PO SCH (10:18)
[2022-05-01] MEDS: ASPIRIN 81 MG PO SCH (10:18)
[2022-05-01] MEDS: ENOXAPARIN 40 MG/0.4 ML SYRINGE SQ SCH (10:19)
[2022-05-01] MEDS: levETIRAcetam ORAL SOLN 500 MG/5 ML CUP PO SCH ×2 (10:20→20:04)
[2022-05-01] MEDS: FERROUS SULFATE ORAL ELIXIR 300 MG/5 ML CUP PO SCH ×2 (10:21→20:03)
[2022-05-01 19:35] VITALS: PULSE 50
--- NOTE | 2022-05-01 19:55 | P.PN ---
Progress Note - Text Progress Note Date: 05/01/22 Chief Complaint: Seizure This is a 62-year-old patient who follows with visiting physicians Dr. Lara. Chronic stable medical conditions include prostate disorder, seizure disorder, developmental delay, depression. He lives at the [facility] home. Able to feed himself and needs some assistance with ADLs. Gait is slow does not use any device. He does work searches. Smoker. History of alcohol abuse not use at least 6 years. By the EMS report patient reported a seizure at the [facility] home. Patient remained postictal. EMS was called out. After the ER. Remained postictal. Not waking up. Hence patient is being admitted. Nobody else available to give any further history. Neurology was consulted. Admitted postictal state. 04/30/2022: saw patient this morning. Awake. Did eat some. Pending EEG. Follow with neurology 05/01/2022: Stable. Tolerated diet. No further seizures. EEG negative for seizure. Spoke to correctional case records supervisor. Cannot go back to his [facility] because of some regulation. Looking to find rehab Active Medications Acetaminophen (Acetaminophen Tab 325 Mg Tab) 650 mg PO Q6HR PRN PRN Reason: Mild Pain or Fever > 100.5 Aspirin (Aspirin 81 Mg) 81 mg PO DAILY [facility] Last Admin: 05/01/22 10:18 Dose: 81 mg Calcium Carbonate/Glycine (Calcium Carbonate 500 Mg Chewable) 1,000 mg PO Q4HR PRN PRN Reason: Dyspepsia Cholecalciferol (Cholecalciferol 125 Mcg (5000 Iu) Tablet) 125 mcg PO DAILY [facility] Last Admin: 05/01/22 10:18 Dose: 125 mcg Desmopressin Acetate (Desmopressin 0.2 Mg Tab) 0.4 mg PO [facility] Last Admin: 04/30/22 21:54 Dose: 0.4 mg Enoxaparin Sodium (Enoxaparin 40 Mg/0.4 Ml Syringe) 40 mg SQ DAILY [facility] Last Admin: 05/01/22 10:19 Dose: 40 mg Escitalopram Oxalate (Escitalopram 10 Mg Tab) 10 mg PO [facility] Last Admin: 04/30/22 21:54 Dose: 10 mg Ferrous Sulfate (Ferrous Sulfate Oral Elixir 300 Mg/5 Ml Cup) 300 mg PO BID [facility] Last Admin: 05/01/22 10:21 Dose: 300 mg Dextrose/Sodium Chloride (Dextrose 5%-1/2ns Iv Soln) 1,000 mls @ 100 mls/hr IV .Q10H [facility] Last Admin: 05/01/22 15:44 Dose: Not Given Lacosamide (Lacosamide 50 Mg Tablet) 50 mg PO DAILY [facility] Last Admin: 05/01/22 10:18 Dose: 50 mg Lactulose (Lactulose 20 Gm/30 Ml Cup) 20 gm PO DAILY PRN PRN Reason: Constipation Levetiracetam (Levetiracetam Oral Soln 500 Mg/5 Ml Cup) 500 mg PO Q12HR [facility] Last Admin: 05/01/22 10:20 Dose: 500 mg Lorazepam (Lorazepam 0.5 Mg Tab) 0.5 mg PO Q6HR PRN PRN Reason: Anxiety Naloxone HCl (Naloxone 0.4 Mg/Ml 1 Ml Vial) 0.2 mg IV Q2M PRN PRN Reason: Opioid Reversal Iloperidone [Fanapt] (2 Mg Tablet) 2 mg PO BID [facility] Last Admin: 05/01/22 09:49 Dose: Not Given Ondansetron HCl (Ondansetron 4 Mg/2 Ml Vial) 4 mg IVP Q8HR PRN PRN Reason: Nausea And Vomiting Valproic Acid (Valproic Acid Oral Soln 250 Mg/5 Ml Cup) 1,000 mg PO BID [facility] Last Admin: 05/01/22 10:16 Dose: 1,000 mg Valproic Acid (Valproic Acid Oral Soln 250 Mg/5 Ml Cup) 250 mg PO DAILY@1200 [facility] Last Admin: 05/01/22 12:43 Dose: 250 mg Past medical history to include: Seizure disorder, developmental delay, depression, chronic nicotine dependence, prostate disorder Social history: History of alcoholism in the past. At least over 6 years ago. Lives at [facility] home. Smokes about half a pack a day. Physical examination: VITAL SIGNS: 98.9, 77, 16, 140/82, 99% room air GENERAL: Awake answering simple questions EYES: Pupils equal. Conjunctiva normal. HEENT: External appearance of nose and ears normal, oral cavity grossly normal. NECK: JVD unable to assess; masses not palpable. HEART: First and second heart sounds are normal; no edema. LUNGS: Respiratory rate normal; decreased breath sounds. ABDOMEN: Soft, nontender, liver spleen not palpable, no masses palpable. PSYCH: Answering simple questions NEUROLOGICAL: Cranial nerves grossly intact; no facial asymmetry, power and sensation grossly intact. INVESTIGATIONS, reviewed in the clinical context: May 01: Potassium 4.6 creatinine 1.29 April 30: Potassium 4.6. 21 and creatinine 1.46 White count 3.7 hemoglobin 14.1 platelets 93 potassium 4.6 BUN 24 creatinine 1.56 [place] 69 UA negative for nitrite and leukoesterase Urine drug screen valproic acid 85.8 EKG tracing personally reviewed by me-harley burrows. Sinus rhythm. Rate 62 Chest x-ray film personally reviewed by me-some hyperinflation Previous labs: Creatinine 1.35 in January 30 Assessment and plan: -Post ictal state. Result -Acute kidney injury, possibly prerenal from decreased oral intake: Improving IV fluids. -Hypoglycemia likely from decreased oral intake D5 0.45 -Chronic kidney disease stage III flexor from nephrosclerosis Creatinine 1.35 in January 2022 -Thrombocytopenia chronic -Seizure disorder Depakote thousand milligrams twice a day, 250 mg a day Keppra 500 mg twice a day -Developmental delay -Depression Lexapro 10 mg daily at bedtime fanapt -Chronic nicotine dependence, cigarette smoker Nicotine patch 14 mg -Full code Await placement. Continue current medications.
[2022-05-01] MEDS: DESMOPRESSIN 0.2 MG TAB PO SCH (20:04)
[2022-05-01] MEDS: ESCITALOPRAM 10 MG TAB PO SCH (20:04)
[2022-05-02] MEDS: DEXTROSE 5%-0.45% NACL 1,000 ML IV SCH ×2 (04:51→15:01)
[2022-05-02 07:28] LABS: African American GFR (CKD) 63 (>60 ml/min/1.73 sqM); Anion Gap 2 mmol/L; Blood Urea Nitrogen 16 mg/dL (9-20); Calcium 8.7 mg/dL (8.4-10.2); Carbon Dioxide 30 mmol/L (22-30); Chloride 105 mmol/L (98-107); Glucose 77 mg/dL (74-99); Non-African American GFR(CKD) 54 (>60 ml/min/1.73 sqM); Potassium 4.3 mmol/L (3.5-5.1); Sodium 137 mmol/L (137-145)
[2022-05-02 09:18] VITALS: RESP 14
[2022-05-02] MEDS: ILOPERIDONE PO SCH (10:22)
[2022-05-02] MEDS: VALPROIC ACID ORAL SOLN 250 MG/5 ML CUP PO SCH ×3 (10:32→20:49)
[2022-05-02] MEDS: FERROUS SULFATE ORAL ELIXIR 300 MG/5 ML CUP PO SCH ×2 (10:33→20:50)
[2022-05-02] MEDS: CHOLECALCIFEROL 125 MCG (5000 IU) TABLET PO SCH (10:33)
[2022-05-02] MEDS: LACOSAMIDE 50 MG TABLET PO SCH (10:33)
[2022-05-02] MEDS: levETIRAcetam ORAL SOLN 500 MG/5 ML CUP PO SCH ×2 (10:33→20:50)
[2022-05-02 11:03] VITALS: BP 150/76; TEMP 98.6
[2022-05-02] MEDS: ASPIRIN 81 MG PO SCH (11:08)
[2022-05-02] MEDS: ENOXAPARIN 40 MG/0.4 ML SYRINGE SQ SCH (11:08)
--- NOTE | 2022-05-02 13:56 | P.PN ---
Subjective Progress Note Date: 05/01/22 Patient was seen for a follow-up. Patient is laying comfortably in the bed. Offers no complaints. Mentation remains unchanged. Objective - Vital Signs Vital signs: Vital Signs Temp 98.6 F 05/02/22 08:00 Pulse 50 L 05/02/22 08:00 Resp 14 05/02/22 09:15 BP 150/76 05/02/22 08:00 Pulse Ox 98 05/02/22 01:03 FiO2 Intake & Output 05/01/22 05/02/22 05/02/22 18:59 06:59 18:59 Intake Total 10 Output Total 900 250 Balance -900 -240 Intake: IV 10 Invasive Line 1 10 Output: Urine 900 250 Other: Voiding Method Urinal Urinal Diaper Diaper Incontinent Incontinent # Bowel Movements 1 - Exam Patient is awake, slow mentation, patient has moderate cognitive impairment, mentally challenged. Patient states it is April and the year is 20---, could not complete it. Speech and language functions are stable. No change. - Labs CBC & Chem 7: 04/29/22 11:44 05/02/22 06:07 Labs: Abnormal Lab Results - Last 24 Hours (Table) 05/02/22 Range/Units 06:07 Creatinine 1.38 H (0.66-1.25) mg/dL Assessment and Plan Assessment: * Breakthrough seizure in a patient with history of seizure disorder. * Cognitive slowing/mentally challenged. * History of seizure disorder * History of alcoholism (as per previous records) Plan: * Patient is currently on Depakote 1000 mg twice a day and 250 mg at midday. His levels are therapeutic 85.8. * Patient also on very low-dose Keppra 250 mg twice a day and Vimpat 50 mg daily. Patient's dose of Keppra was increased to 500 mg twice a day. Patient tolerating higher dose of Keppra well. * EEG was abnormal due to background slowing of mild to moderate degree, suggestive of generalized cerebral dysfunction as can be seen with enc ephalopathy or medication effect. No epileptiform activity was seen. * Continue same dose of Depakote and Vimpat. * Neurologically clear. Recommend follow-up with his neurologist in 2-4 weeks.
--- NOTE | 2022-05-02 15:01 | P.DS ---
Providers Date of admission: 04/29/22 16:00 Expected date of discharge: 05/02/22 Attending physician: Babak Orourke Consults: 04/29/22 15:58 Consult Physician Urgent Consulting Provider: Bryce Melara Consult Reason/Comments: Generalized seizure, postictal state Do you want consulting provider notified?: Yes Primary care physician: Francisco Wiley MD Hospital Course: Chief Complaint: Seizure This is a 62-year-old patient who follows with visiting physicians Dr. Lara. Chronic stable medical conditions include prostate disorder, seizure disorder, developmental delay, depression. He lives at the [facility] home. Able to feed himself and needs some assistance with ADLs. Gait is slow does not use any device. He does work searches. Smoker. History of alcohol abuse not use at least 6 years. By the EMS report patient reported a seizure at the [facility] home. Patient remained postictal. EMS was called out. After the ER. Remained postictal. Not waking up. Hence patient is being admitted. Nobody else available to give any further history. Neurology was consulted. Admitted postictal state. 04/30/2022: saw patient this morning. Awake. Did eat some. Pending EEG. Follow with neurology 05/01/2022: Stable. Tolerated diet. No further seizures. EEG negative for seizure. Spoke to director of casework services. Cannot go back to his [facility] because of some regulation. Looking to find rehab 05/02/2022: Comfortable. Eating about 50%. No further seizures. Discussed with director of casework services. Accepted to [facility]. obra completed. Patient to follow-up with his own neurologist. Discussion and discharge planning more than 35 minutes Past medical history to include: Seizure disorder, developmental delay, depression, chronic nicotine dependence, prostate disorder Social history: History of alcoholism in the past. At least over 6 years ago. Lives at [facility] home. Smokes about half a pack a day. Physical examination: VITAL SIGNS: 98.6, 50, 14, 150/76, 98% room air GENERAL: Awake answering simple questions EYES: Pupils equal. Conjunctiva normal. HEENT: External appearance of nose and ears normal, oral cavity grossly normal. NECK: JVD unable to assess; masses not palpable. HEART: First and second heart sounds are normal; no edema. LUNGS: Respiratory rate normal; decreased breath sounds. ABDOMEN: Soft, nontender, liver spleen not palpable, no masses palpable. PSYCH: Answering simple questions NEUROLOGICAL: Cranial nerves grossly intact; no facial asymmetry, power and sensation grossly intact. INVESTIGATIONS, reviewed in the clinical context: May 02: Creatinine 1.38 May 01: Potassium 4.6 creatinine 1.29 April 30: Potassium 4.6. 21 and creatinine 1.46 White count 3.7 hemoglobin 14.1 platelets 93 potassium 4.6 BUN 24 creatinine 1.56 [place] 69 UA negative for nitrite and leukoesterase Urine drug screen valproic acid 85.8 EKG tracing personally reviewed by me-harley burrows. Sinus rhythm. Rate 62 Chest x-ray film personally reviewed by me-some hyperinflation Previous labs: Creatinine 1.35 in January 30 Assessment and plan: -Post ictal state. Better -Acute kidney injury, possibly prerenal from decreased oral intake: Better IV fluids. -Hypoglycemia likely from decreased oral intake D5 0.45 -Chronic kidney disease stage III flexor from nephrosclerosis Creatinine 1.35 in January 2022 -Thrombocytopenia chronic -Seizure disorder Depakote thousand milligrams twice a day, 250 mg a day Keppra 500 mg twice a day -Developmental delay -Depression Lexapro 10 mg daily at bedtime fanapt -Chronic nicotine dependence, cigarette smoker Nicotine patch 14 mg -Full code Disposition: [facility] Plan - Discharge Summary Discharge Rx Participant: No New Discharge Prescriptions: New levETIRAcetam [Keppra] 500 mg PO Q12HR #60 tab Continue Desmopressin Acetate 0.4 mg PO HS Aspirin EC [Ecotrin Low Dose] 81 mg PO DAILY Cholecalciferol (Vitamin D3) [Vitamin D3 (125 MCG = 5,000 IU)] 125 mcg PO DAILY Escitalopram [Lexapro] 10 mg PO HS Divalproex [Depakote] 1,000 mg PO BID Ferrous Sulfate [Iron (65 MG Elemental)] 325 mg PO BID Lacosamide [Vimpat] 50 mg PO DAILY Iloperidone [Fanapt] 2 mg PO BID Divalproex [Depakote] 250 mg PO DAILY@1200 Discontinued levETIRAcetam [Keppra] 250 mg PO Q12H Discharge Medication List Desmopressin Acetate 0.4 mg PO HS 07/13/15 [History] Aspirin EC [Ecotrin Low Dose] 81 mg PO DAILY 10/05/16 [History] Escitalopram [Lexapro] 10 mg PO HS 10/20/20 [History] Divalproex [Depakote] 1,000 mg PO BID 11/25/20 [History] Cholecalciferol (Vitamin D3) [Vitamin D3 (125 MCG = 5,000 IU)] 125 mcg PO DAILY 06/17/21 [History] Ferrous Sulfate [Iron (65 MG Elemental)] 325 mg PO BID 01/10/22 [History] Lacosamide [Vimpat] 50 mg PO DAILY 03/24/22 [History] Divalproex [Depakote] 250 mg PO DAILY@1200 04/29/22 [History] Iloperidone [Fanapt] 2 mg PO BID 04/29/22 [History] levETIRAcetam [Keppra] 500 mg PO Q12HR #60 tab 05/01/22 [Rx] Follow up Appointment(s)/Referral(s): own-neurologistdr [Other] - 1 Week Francisco Wiley MD [Primary Care Provider] - 1-2 days [facility], [NON-STAFF] - As Needed Patient Instructions/Handouts: Seizure/Epilepsy Discharge Instructions & Follow-Up
[2022-05-02] MEDS: DESMOPRESSIN 0.2 MG TAB PO SCH (20:50)
[2022-05-02] MEDS: ESCITALOPRAM 10 MG TAB PO SCH (20:50)
--- NOTE | 2022-05-03 11:13 | P.PN ---
Subjective Progress Note Date: 05/02/22 Patient was seen for a follow-up. Patient is laying comfortably in the bed. Offers no complaints. Mentation remains unchanged. Objective - Vital Signs Vital signs: Vital Signs Temp 98.6 F 05/02/22 08:00 Pulse 50 L 05/02/22 08:00 Resp 14 05/02/22 09:15 BP 150/76 05/02/22 08:00 Pulse Ox 98 05/02/22 01:03 FiO2 Intake & Output 05/02/22 05/03/22 05/03/22 18:59 06:59 18:59 Intake Total 1568 Output Total 950 300 Balance 618 -300 Intake: Intake, IV Titration 1200 Amount Dextrose 5%-0.45% NaCl 1, 1200 000 ml @ 100 mls/hr IV . Q10H [facility] Rx#:[id number] Oral 368 Output: Urine 950 300 Other: Voiding Method Urinal Diaper Incontinent - Exam Patient is awake, slow mentation, patient has moderate cognitive impairment, mentally challenged. Patient states it is April and the year is 2000. Speech and language functions are stable. No change. Patient smiles inappropriately. Examination unchanged. - Labs CBC & Chem 7: 04/29/22 11:44 05/02/22 06:07 Assessment and Plan Assessment: * Breakthrough seizure in a patient with history of seizure disorder. * Cognitive slowing/mentally challenged. * History of seizure disorder * History of alcoholism (as per previous records) Plan: * Patient is currently on Depakote 1000 mg twice a day and 250 mg at midday. His levels are therapeutic 85.8. * Patient also on very low-dose Keppra 250 mg twice a day and Vimpat 50 mg daily. Patient's dose of Keppra was increased to 500 mg twice a day. Patient tolerating higher dose of Keppra well. * EEG was abnormal due to background slowing of mild to moderate degree, suggestive of generalized cerebral dysfunction as can be seen with encephalopathy or medication effect. No epileptiform activity was seen. * Continue same dose of Depakote and Vimpat. * Neurologically clear. Recommend follow-up with his neurologist in 2-4 weeks.
== END 2022-05-02 21:00 ==
LOC: EC 11:02 → 4SSUR 16:00
PROVIDERS: ADMIT Hospitalist; ATTEND Hospitalist
DX: G40.89 Other seizures (principal)
CPT/HCPCS: 96361 ×4; 96372 ×4; 96365; 99285; 36415; 95816; 93005; 97116; 97162; 97535; 97166; 80164; 80053; 80048 ×3; 83735; 85025; 81001; 80306; 71046; G0378 ×4; J1650 ×4; J1953

== ENCOUNTER 2023-04-03 20:34 | Emergency (ER) | payer OTHER ==
[2023-04-03 20:50] VITALS: RESP 18; TEMP 99.1
[2023-04-03 21:24] LABS: Basophils % (A) 0 %; Eosinophils % (A) 1 %; HCT 40.7 % (39.0-53.0); Lymphocytes # (A) 1.4 k/uL (1.0-4.8); Lymphocytes % (A) 30 %; MCH 29.3 pg (25.0-35.0); MCV 91.5 fL (80.0-100.0); Mean Platelet Volume 8.2; Monocytes # (A) 0.3 k/uL (0-1.0); Monocytes % (A) 7 %; Neutrophils # (A) 2.8 k/uL (1.3-7.7); Neutrophils % (A) 60 %; Platelet Count 149 k/uL (150-450); RBC 4.45 m/uL (4.30-5.90); RDW 14.1 % (11.5-15.5); WBC 4.6 k/uL (3.8-10.6)
[2023-04-03 21:28] LABS: ALT 20 U/L (4-49); AST 39 U/L (17-59); African American GFR (CKD) 57 (>60 ml/min/1.73 sqM); Albumin 4.1 g/dL (3.5-5.0); Alkaline Phosphatase 65 U/L (38-126); Anion Gap 4 mmol/L; Blood Urea Nitrogen 17 mg/dL (9-20); Calcium 9.6 mg/dL (8.4-10.2); Carbon Dioxide 24 mmol/L (22-30); Chloride 110 mmol/L (98-107); Glucose 88 mg/dL (74-99); Magnesium 1.9 mg/dL (1.6-2.3); Non-African American GFR(CKD) 49 (>60 ml/min/1.73 sqM); Potassium 4.5 mmol/L (3.5-5.1); Sodium 138 mmol/L (137-145); Total Bilirubin 0.5 mg/dL (0.2-1.3); Total Protein 6.8 g/dL (6.3-8.2)
[2023-04-03 21:34] LABS: Valproic Acid (Depakene) <10.0 ug/mL
--- NOTE | 2023-04-03 22:20 | CT ---
EXAMINATION TYPE: CT brain cspine wo con CT DLP: 1566.2 mGycm, Automated exposure control for dose reduction was used. DATE OF EXAM: 04/03/2023 9:58 PM COMPARISON: 03/24/2022. CLINICAL INDICATION:Male, 63 years old with history of seizure, head injury; Seizure x2. Pt possibly hit head. Abrasion above rt eye. TECHNIQUE: Brain: Multiple axial CT images of the brain were obtained without IV contrast. Cspine: Axial CT images from the skull base to the inferior aspect of T2 we obtained without intraven ous contrast. Coronal and sagittal reformatted images were also reviewed. FINDINGS: Brain: Extra-axial spaces: No abnormal extra-axial fluid collections. Ventricular system: Dilation of the ventricular system, cavum septum pellucidum. Cerebral parenchyma: No acute intraparenchymal hemorrhage or mass effect. The corey-white junction is well differentiated. Cerebellum: Mild atrophy changes are unchanged from prior. Stable dilation Mass effect: No evidence of midline shift. Intracranial vasculature: unremarkable Soft tissues: Normal. Calvarium/osseous structures: No depressed skull fracture. Paranasal sinuses and mastoid air cells: Clear. Visualized orbits: Orbital contents are intact. Cervical spine: Fracture: None. Osseous structures: Multilevel degenerative disc disease changes with endplate spurring and disc oste ophyte complex's. Vertebral alignment: Within normal limits. Spinal canal/Neural Foramina: No evidence of significant spinal canal narrowing. No evidence for sign ificant neural foraminal stenosis. Neck soft tissues: Prevertebral soft tissues are within normal limits. Other: The airway is patent. The lung apices are clear. IMPRESSION: 1. No acute intracranial process. 2. Dilation of ventricular system not significantly changed from prior same back to at least 2021. 3. No evidence of cervical spine fracture. 4. Mild to moderate multilevel degenerative disc disease.
--- NOTE | 2023-04-03 22:31 | ED ---
Seizure HPI - General Chief Complaint: Seizure Stated Complaint: seizures Time Seen by Provider: 04/03/23 20:40 Source: patient Mode of arrival: EMS Limitations: no limitations - History of Present Illness Initial Comments: 63-year-old male with past medical history of epilepsy, developmental delay who presents to the emergency department from [facility]. Patient had 2 unwitnessed seizures today. He had 1 around 1 PM and 1 just prior to hospital arrival. During the second possible seizure the patient fell and was found on the ground in his room. There was a small abrasion above the right eye. Patient takes several antiepileptic medications. He is nonverbal and therefore cannot provide any history. Patient presents and appears to be back to his baseline. - Related Data Home Medications Medication Instructions Recorded Confirmed Desmopressin Acetate 0.4 mg PO HS 07/13/15 04/03/23 Aspirin EC [Ecotrin Low Dose] 81 mg PO DAILY 10/05/16 04/03/23 Escitalopram [Lexapro] 20 mg PO HS 10/20/20 04/03/23 Ativan Injection Solution 2mg/Ml 0.25 ml IM DAILY PRN 04/03/23 04/03/23 (Lorazepam) Lacosamide [Vimpat] 50 mg PO BID 04/03/23 04/03/23 Multivitamins, Thera [Multivitamin 1 tab PO DAILY 04/03/23 04/03/23 (formulary)] Valproic Acid Oral Soln [Depakene 1,000 mg PO BID 04/03/23 04/03/23 Syrup] Valproic Acid Oral Soln [Depakene 250 mg PO DAILY@1500 04/03/23 04/03/23 Syrup] levETIRAcetam [Keppra] 1,000 mg PO Q12HR 04/03/23 04/03/23 polyethylene glycoL 3350 [Miralax] 17 gm PO DAILY 04/03/23 04/03/23 risperiDONE [RisperDAL] 0.5 mg PO HS 04/03/23 04/03/23 Allergies Allergy/AdvReac Type Severity Reaction Status Date / Time No Known Allergies Allergy Verified 04/29/22 13:26 Review of Systems ROS Statement: Those systems with pertinent positive or pertinent negative responses have been documented in the HPI. ROS Other: All systems not noted in ROS Statement are negative. Past Medical History Past Medical History: Prostate Disorder, Seizure Disorder Additional Past Medical History / Comment(s): epilepsy, developmentally delayed History of Any Multi-Drug Resistant Organisms: None Reported Past Surgical History: No Surgical Hx Reported Additional Past Surgical History / Comment(s): Only surgery known was plastic surgery due to ashley as a child. Past Anesthesia/Blood Transfusion Reactions: Unable to Obtain Past Psychological History: Depression Smoking Status: Current every day smoker Past Alcohol Use History: None Reported Past Drug Use History: None Reported - Past Family History Father History Unknown: Yes Family Medical History: Unable to Obtain Mother History Unknown: Yes Family Medical History: Unable to Obtain General Exam Limitations: physical limitation General appearance: alert, in no apparent distress Head exam: Present: other (Abrasion over right eyebrow measuring 1.5 x 1 cm. No active bleeding) Eye exam: Present: normal appearance, PERRL, EOMI. Absent: scleral icterus, conjunctival injection, periorbital swelling Neck exam: Present: normal inspection, other (C-collar in place). Absent: tenderness, meningismus, lymphadenopathy Respiratory exam: Present: normal lung sounds bilaterally Cardiovascular Exam: Present: regular rate, normal rhythm, normal heart sounds. Absent: systolic murmur, diastolic murmur, rubs, gallop, clicks Neurological exam: Present: alert Skin exam: Present: warm, dry, intact, normal color. Absent: rash Course Vital Signs 04/03/23 04/03/23 04/03/23 20:36 20:46 22:25 Temperature 99.1 F Pulse Rate 61 62 Respiratory 18 18 Rate Blood Pressure 151/106 124/85 O2 Sat by Pulse 96 95 Oximetry Medical Decision Making - Medical Decision Making Was pt. sent in by a medical professional or institution (, PA, TOURIST INFORMATION ASSISTANT, urgent care, hospital, or senior living...) When possible be specific @ -Patient was sent by [facility] Did you speak to anyone other than the patient for history (EMS, parent, family, police, friend...)? What history was obtained from this source @ -Spoke with EMS and staff at patient's facility Did you review nursing and triage notes (agree or disagree)? Why? @ -I reviewed and agree with nursing and triage notes Were old charts reviewed (outside hosp., previous admission, EMS record, old E KG, old radiological studies, urgent care reports/EKG's, senior living records)? Report findings @ -I reviewed patient's chart from April of last year where he was hospitalized for seizures Differential Diagnosis (chest pain, altered mental status, abdominal pain women, abdominal pain men, vaginal bleeding, weakness, fever, dyspnea, syncope, headache, dizziness, GI bleed, back pain, seizure, CVA, palpatations, mental health, musculoskeletal)? @ -Differential Seizure: Recurrent seizure disorder, febrile seizure, alcohol withdrawal, stimulants, meningitis, encephalitis, intercranial hemorrhage, intracranial tumor, stroke, eclampsia, thyrotoxicosis, hypocalcemia, hyponatremia, hypernatremia, hypomagnesemia, psychogenic, this is not meant to be an all-inclusive list. EKG interpreted by me (3pts min.). @ -Yes and demonstrates sinus rhythm with a rate of 62. MT interval 152. QRS 81. QTc of 423. No acute ST segment elevations or depressions X-rays interpreted by me (1pt min.). @ -None done CT interpreted by me (1pt min.). @ -Yes and demonstrates no acute intracranial process. Stable hydrocephalus U/S interpreted by me (1pt. min.). @ -None done What testing was considered but not performed or refused? (CT, X-rays, U/S, labs)? Why? @ -None What meds were considered but not given or refused? Why? @ -None Did you discuss the management of the patient with other professionals (professionals i.e. , PA, TOURIST INFORMATION ASSISTANT, lab, RT, psych nurse, social media strategist, radiation therapy technician, teacher, disabilities services officer, hospice case manager)? Give summary @ -No Was smoking cessation discussed for >3mins.? @ -No Was critical care preformed (if so, how long)? @ -No Were there social determinants of health that impacted care today? How? (Homelessness, low income, unemployed, alcoholism, drug addiction, transportation, low edu. Level, literacy, decrease access to med. care, nursing home, rehab)? @ -Nonverbal Was there de-escalation of care discussed even if they declined (Discuss DNR or withdrawal of care, Hospice)? DNR status @ -No What co-morbidities impacted this encounter? (DM, HTN, Smoking, COPD, CAD, Cancer, CVA, ARF, Chemo, Hep., AIDS, mental health diagnosis, sleep apnea, morbid obesity)? @ -Developmental delay, seizure disorder Was patient admitted / discharged? Hospital course, mention meds given and rou te, prescriptions, significant lab abnormalities, going to OR and other pertinent info. @ -Discharged back to his facility. Upon arrival patient was placed into trauma four. Thorough history and physical exam was performed. Laboratory studies are conducted. Valproic acid level is undetectable. We did call the patient's facility and they state that the patient was just started back on this medication today however did not get any doses. He has had several breakthrough seizures this week and therefore patient was started back on this medication. Patient was sent for CT of his head and cervical spine because of his injury. CT does not demonstrate any acute injuries. Patient does not have any seizures while in the emergency department here. He was given his nighttime dose of seizure medications. At this time the patient will be discharged back to his facility. Instructed to take the medications as he has been directed and follow-up with his neurologist. Return for any new or worsening symptoms. Undiagnosed new problem with uncertain prognosis? @ -No Drug Therapy requiring intensive monitoring for toxicity (Heparin, Nitro, Insulin, Cardizem)? @ -No Were any procedures done? @ -No Diagnosis/symptom? @ -Acute breakthrough seizure, history of seizure disorder, blunt head trauma Acute, or Chronic, or Acute on Chronic? @ -Acute Uncomplicated (without systemic symptoms) or Complicated (systemic symptoms)? @ -Complicated Side effects of treatment? @ -No Exacerbation, Progression, or Severe Exacerbation? @ -No Poses a threat to life or bodily function? How? (Chest pain, [place], [place], pneumonia, PE, COPD, DKA, ARF, appy, cholecystitis, CVA, Diverticulitis, Homicidal, S uicidal, threat to staff... and all critical care pts) @ -No - Lab Data Result diagrams: 04/03/23 20:56 04/03/23 20:56 Lab Results 04/03/23 04/03/23 04/03/23 Range/Units 20:56 20:56 20:56 WBC 4.6 (3.8-10.6) k/uL RBC 4.45 (4.30-5.90) m/uL Hgb 13.0 (13.0-17.5) gm/dL Hct 40.7 (39.0-53.0) % MCV 91.5 (80.0-100.0) fL MCH 29.3 (25.0-35.0) pg MCHC 32.0 (31.0-37.0) g/dL RDW 14.1 (11.5-15.5) % Plt Count 149 L (150-450) k/uL MPV 8.2 Neutrophils % 60 % Lymphocytes % 30 % Monocytes % 7 % Eosinophils % 1 % Basophils % 0 % Neutrophils # 2.8 (1.3-7.7) k/uL Lymphocytes # 1.4 (1.0-4.8) k/uL Monocytes # 0.3 (0-1.0) k/uL Eosinophils # 0.0 (0-0.7) k/uL Basophils # 0.0 (0-0.2) k/uL Sodium 138 (137-145) mmol/L Potassium 4.5 (3.5-5.1) mmol/L Chloride 110 H (98-107) mmol/L Carbon Dioxide 24 (22-30) mmol/L Anion Gap 4 mmol/L BUN 17 (9-20) mg/dL Creatinine 1.48 H (0.66-1.25) mg/dL Est GFR (CKD-EPI)AfAm 57 (>60 ml/min/1.73 sqM) Est GFR (CKD-EPI)NonAf 49 (>60 ml/min/1.73 sqM) Glucose 88 (74-99) mg/dL Plasma Lactic Acid Yobany 1.2 (0.7-2.0) mmol/L Calcium 9.6 (8.4-10.2) mg/dL Magnesium 1.9 (1.6-2.3) mg/dL Total Bilirubin 0.5 (0.2-1.3) mg/dL AST 39 (17-59) U/L ALT 20 (4-49) U/L Alkaline Phosphatase 65 (38-126) U/L Total Protein 6.8 (6.3-8.2) g/dL Albumin 4.1 (3.5-5.0) g/dL Valproic Acid <10.0 ug/mL Disposition Clinical Impression: Generalized seizure, History of epilepsy Disposition: HOME SELF-CARE Condition: Stable Instructions (If sedation given, give patient instructions): Seizure/Epilepsy Discharge Instructions & Follow-Up Is patient prescribed a controlled substance at d/c from ED?: No Referrals: Francisco Wiley MD [REFERRING] - 1-2 days Time of Disposition: 22:31
[2023-04-03 22:45] VITALS: BP 124/85; PULSE 62
[2023-04-03] MEDS: LACOSAMIDE 50 MG TABLET PO SCH (23:19)
[2023-04-03] MEDS: levETIRAcetam 500 MG TAB PO SCH (23:19)
[2023-04-03] MEDS: VALPROIC ACID ORAL SOLN 250 MG/5 ML CUP PO SCH (23:20)
[2023-04-03] MEDS: DESMOPRESSIN 0.2 MG TAB PO SCH (23:20)
[2023-04-03] MEDS: risperiDONE 0.25 MG TAB PO SCH (23:20)
[2023-04-03] MEDS: ESCITALOPRAM 20 MG TAB PO SCH (23:20)
== END 2023-04-04 00:37 | disposition home or self-care (01) ==
LOC: EC 20:34
DX: S00.211A Abrasion of right eyelid and periocular area, initial encounter (principal); G40.409 Other generalized epilepsy and epileptic syndromes, not intractable, without status epilepticus; F32.A Depression, unspecified; F17.200 Nicotine dependence, unspecified, uncomplicated; Z79.899 Other long term (current) drug therapy; W18.30XA Fall on same level, unspecified, initial encounter
CPT/HCPCS: 36415; 70450; 72125; 80053; 80164; 83605; 83735; 85025; 93005; 99285